=== PATIENT | female | born 1935 | race African-American/Black ===

== ENCOUNTER 2016-11-24 10:17 | Inpatient (IN) | payer MEDICARE ==
[~2016-11-24] VITALS: Ht 152.4 cm; Wt 73.0 kg
[~2016-11-24 10:17] MED LIST: ALLO100T PO; AMLO10TA4 PO; DRON2.5C PO; FURO-69 PO; LABE200T2 PO; LEVO500T59 PO; LEVO75TA5 PO; METR500T PO; MIRT7.5T8 PO; SIMV10TA3 PO; SIMV20TA3 PO
--- NOTE | 2016-11-24 10:45 | PHYS DOC ---
Past Medical History Past Medical History: CVA, Hypertension, Stroke Past Surgical History: Hysterectomy Alcohol Use: None Drug Use: None Adult General Chief Complaint Chief Complaint: SHORTNESS OF BREATH HPI HPI Patient is a 81 year old female who presents with complaint shortness of breath. Patient states that she initially noticed shortness of breath 2 weeks ago, however the past 2 days she has had severe worsening symptoms. Patient admitted to the hospital approximately 2 weeks ago for treatment of urinary tract infection. Patient states that she started getting worsening symptoms shortly after discharge. Patient has history congestive heart failure. Patient denies any associated fever. Patient states that she has not been able to lay flat due to shortness of breath. Patient also states that she has had severely decreased ambulation due to her shortness of breath symptoms. Patient normally walks with the aid of a walker, however she has not been able to use this over the past 2 days because of her symptoms. Patient has not taken any medications to help with her symptoms at this time. Patient follows a Dr. Clarke for primary care. Review of Systems Review of Systems Constitutional: Denies fever or chills [] Eyes: Denies change in visual acuity, redness, or eye pain [] HENT: Denies nasal congestion or sore throat [] Respiratory: Shortness of breath, dyspnea on exertion[] Cardiovascular: Denies chest pain or edema[] GI: Denies abdominal pain, nausea, vomiting, bloody stools or diarrhea [] : Denies dysuria or hematuria [] Musculoskeletal: Denies back pain or joint pain [] Integument: Denies rash or skin lesions [] Neurologic: Denies headache, focal weakness or sensory changes [] Allergies Allergies Allergies Coded Allergies Type Severity Reaction Last Updated Verified No Known Drug Allergies 09/22/14 No Physical Exam Physical Exam Constitutional: Alert, afebrile, appears in minimal discomfort while at rest. [] HENT: Normocephalic, atraumatic, bilateral external ears normal, oropharynx moist, no oral exudates, nose normal. [] Eyes: PERRLA, EOMI, conjunctiva normal, no discharge. [] Neck: Normal range of motion, no tenderness, supple, no stridor. [] Cardiovascular:Heart rate regular rhythm, no murmur [] Lungs & Thorax: Mildly her strict air movement bilaterally, faint rales in the bilateral lung bases, no wheezes[] Abdomen: Bowel sounds normal, soft, no tenderness, no masses, no pulsatile masses. [] Skin: Warm, dry, no erythema, no rash. [] Back: No tenderness, no CVA tenderness. [] Extremities: No tenderness, no cyanosis, no clubbing, ROM intact, no edema. [] Neurologic: Alert and oriented X 3, normal motor function, normal sensory function, no focal deficits noted. [] Current Patient Data Vital Signs Vital Signs Date Time Temp Pulse Resp B/P (MAP) Pulse Ox O2 Delivery O2 Flow Rate FiO2 11/24/16 12:18 79 165/84 (111) 97 Room Air 11/24/16 10:17 98.3 20 98.3 Lab Values Laboratory Tests Test 11/24/16 10:50 11/24/16 12:00 White Blood Count 9.4 x10^3/uL (4.0-11.0) Red Blood Count 4.79 x10^6/uL (3.50-5.40) Hemoglobin 10.6 g/dL (12.0-15.5) L Hematocrit 33.9 % (36.0-47.0) L Mean Corpuscular Volume 71 fL (79-100) L Mean Corpuscular Hemoglobin 22 pg (25-35) L Mean Corpuscular Hemoglobin Concent 31 g/dL (31-37) Red Cell Distribution Width 16.5 % (11.5-14.5) H Platelet Count 226 x10^3/uL (140-400) Neutrophils (%) (Auto) 67 % (31-73) Lymphocytes (%) (Auto) 24 % (24-48) Monocytes (%) (Auto) 6 % (0-9) Eosinophils (%) (Auto) 2 % (0-3) Basophils (%) (Auto) 1 % (0-3) Neutrophils # (Auto) 6.3 x10^3uL (1.8-7.7) Lymphocytes # (Auto) 2.3 x10^3/uL (1.0-4.8) Monocytes # (Auto) 0.6 x10^3/uL (0.0-1.1) Eosinophils # (Auto) 0.2 x10^3/uL (0.0-0.7) Basophils # (Auto) 0.1 x10^3/uL (0.0-0.2) Platelet Estimate Adequate (ADEQUATE) Hypochromasia Slight Anisocytosis Slight Microcytosis Mod Sodium Level 138 mmol/L (136-145) Potassium Level 5.2 mmol/L (3.5-5.1) H Chloride Level 104 mmol/L (98-107) Carbon Dioxide Level 21 mmol/L (21-32) Anion Gap 13 (6-14) Blood Urea Nitrogen 31 mg/dL (7-20) H Creatinine 1.6 mg/dL (0.6-1.0) H Estimated GFR (Cockcroft-Gault) 37.6 BUN/Creatinine Ratio 19 (6-20) Glucose Level 104 mg/dL (70-99) H Calcium Level 9.0 mg/dL (8.5-10.1) Total Bilirubin 0.6 mg/dL (0.2-1.0) Aspartate Amino Transferase (AST) 11 U/L (15-37) L Alanine Aminotransferase (ALT) 13 U/L (14-59) L Alkaline Phosphatase 84 U/L (46-116) Creatine Kinase 108 U/L (26-192) Creatine Kinase MB (Mass) 1.0 ng/mL (0.0-3.6) Creatine Kinase MB Relative Index 0.9 % (0-4) Troponin I Quantitative < 0.017 ng/mL (0.000-0.055) WD-Mfx-N-Type Natriuretic Peptide 325 pg/mL (0-449) Total Protein 7.7 g/dL (6.4-8.2) Albumin 4.0 g/dL (3.4-5.0) Albumin/Globulin Ratio 1.1 (1.0-1.7) Urine Collection Type Unknown Urine Color Yellow Urine Clarity Clear Urine pH 5.5 Urine Specific [place] 1.015 Urine Protein Negative mg/dL (NEG-TRACE) Urine Glucose (UA) Negative mg/dL (NEG) Urine Ketones (Stick) Negative mg/dL (NEG) Urine Blood Negative (NEG) Urine Nitrite Positive (NEG) Urine Bilirubin Negative (NEG) Urine Urobilinogen Dipstick 0.2 mg/dL (0.2 mg/dL) Urine Leukocyte Esterase Small (NEG) Urine RBC 0 /HPF (0-2) Urine WBC 1-4 /HPF (0-4) Urine Bacteria Many /HPF (0-FEW) Laboratory Tests 11/24/16 10:50 Laboratory Tests 11/24/16 10:50 EKG EKG Interpreted by me: Heart rate 89, sinus rhythm, normal intervals, normal axis, T -wave inversions in V2 through V6, no acute ST elevations or depressions[] Radiology/Procedures Radiology/Procedures [facility] [address] [place] [address] IMAGING REPORT Signed PATIENT: PAULA NOLAN ACCOUNT: [id number] : 09/24/1951 LOCATION: ER AGE: 65 SEX: F EXAM STATUS: REG ER ORD. PHYSICIAN: STANLEY SQUIRES MD REASON: cough, chest congestion, fever PROCEDURE: CHEST PA & LATERAL Chest, 2 views, 2016: History: Cough, chest congestion The heart size and pulmonary vascularity are normal. There is mild tortuosity of the thoracic aorta. There or minimal patchy left basilar opacities. The right lung is clear. There is no evidence of pleural fluid. IMPRESSION: Minimal left basilar infiltrate suggesting pneumonia. DICTATED and SIGNED BY: TOM QUAN MD DATE: 11/24/16718 CC: STANLEY SQUIRES MD; GABRIELA SAM MD ~ [] Course & Med Decision Making Course & Med Decision Making Pertinent Labs and Imaging studies reviewed. (See chart for details) Patient's chest x-ray shows signs of edema. Patient's symptoms appear consistent with acute exacerbation of chronic congestive heart failure. Due to severity of symptoms and inability to ambulate normal distances without significant shortness of breath, the patient will require admission to the hospital for further treatment. I spoke with Dr. Strickland who accepted care patient in hospital. Dragon Disclaimer Dragon Disclaimer This electronic medical record was generated, in whole or in part, using a voice recognition dictation system. Departure Departure Impression: Primary Impression: Acute on chronic congestive heart failure Disposition: ADMITTED INPATIENT Condition: STABLE Referrals: RENNY CLARKE DO (PCP) Problem Qualifiers Primary Impression: Acute on chronic congestive heart failure Congestive heart failure type: unspecified congestive heart failure type Qualified Codes: I50.9 - Heart failure, unspecified STANLEY SQUIRES MD Nov 24, 2016 10:45
--- NOTE | 2016-11-24 11:07 | RAD ---
Portable chest, 2016: History: Shortness of breath, cough Comparison is made to a study from 10/30/2016. The heart is mildly enlarged. There is calcific plaquing of the thoracic aorta. The pulmonary vascularity is normal. A calcified granuloma is present in the right base. There is unchanged blunting of left lateral costophrenic angle compatible with scarring versus a tiny amount of pleural fluid. No pulmonary infiltrate is seen. IMPRESSION: 1. Mild cardiomegaly and aortic atherosclerosis. 2. Blunting of the left lateral costophrenic angle compatible with scarring versus a tiny amount pleural fluid. 3. No significant change since 10/30/2016.
[2016-11-24 11:21] LABS: BASO # 0.1 x10^3/uL (0.0-0.2); BASO % 1 % (0-3); EOS % 2 % (0-3); HEMATOCRIT 33.9 % (36.0-47.0); HEMOGLOBIN 10.6 g/dL (12.0-15.5); LYMPH # 2.3 x10^3/uL (1.0-4.8); LYMPH % 24 % (24-48); MEAN CORPUSCULAR HEMOGLOBIN 22 pg (25-35); MEAN CORPUSCULAR HGB CONC 31 g/dL (31-37); MEAN CORPUSCULAR VOLUME 71 fL (79-100); MONO % 6 % (0-9); NEUT % 67 % (31-73); PLATELET COUNT 226 x10^3/uL (140-400); RED BLOOD COUNT 4.79 x10^6/uL (3.50-5.40); RED CELL DISTRIBUTION WIDTH 16.5 % (11.5-14.5); WHITE BLOOD COUNT 9.4 x10^3/uL (4.0-11.0)
[2016-11-24 11:29] LABS: CREATININE 1.6 mg/dL (0.6-1.0); GFR 37.6; POTASSIUM 5.2 mmol/L (3.5-5.1)
[2016-11-24 11:36] LABS: ALBUMIN/GLOBULIN RATIO 1.1 (1.0-1.7); TOTAL BILIRUBIN 0.6 mg/dL (0.2-1.0); TOTAL PROTEIN 7.7 g/dL (6.4-8.2)
[2016-11-24 12:08] LABS: BILIRUBIN,URINE NEGATIVE (NEG); GLUCOSE,URINE NEGATIVE (NEG); NITRITE,URINE POSITIVE (NEG); PH,URINE 5.5; PROTEIN,URINE NEGATIVE (NEG-TRACE); UROBILINOGEN,URINE 0.2 mg/dL (0.2 mg/dL)
[2016-11-24 12:25] LABS: RBC,URINE 0 /HPF (0-2)
[2016-11-24 12:26] LABS: BACTERIA,URINE MANY /HPF (0-FEW)
[2016-11-24] MEDS ORDERED: IBUPROFEN 400 MG TABLET. PO PRN (13:30)
[2016-11-24] MEDS ORDERED: MORPHINE SULFATE 2 MG/ML DISP.SYRIN. IV PRN (13:30)
[2016-11-24] MEDS ORDERED: MAGNESIUM HYDROXIDE 2,400 MG/30 ML ORAL.SUSP. PO PRN (13:30)
[2016-11-24] MEDS ORDERED: PROCHLORPERAZINE 25 MG SUPP.RECT. PR PRN (13:30)
[2016-11-24] MEDS ORDERED: PROCHLORPERAZINE 10 MG/2 ML VIAL. IV PRN (13:30)
[2016-11-24] MEDS ORDERED: ONDANSETRON PF 4 MG/2 ML VIAL. IV PRN (13:30)
[2016-11-24] MEDS ORDERED: ACETAMINOPHEN 325 MG TABLET. PO PRN (13:30)
[2016-11-24] MEDS ORDERED: BISACODYL 10 MG SUPP.RECT. PR PRN (13:30)
--- NOTE | 2016-11-24 13:46 | PDOC1 ---
History and Physical Date of Admission Date of Admission DATE: 11/24/16 TIME: 13:35 Identification/Chief Complaint Chief Complaint weak, SOA, difficulty speech Problems: Source Source: Caregiver, Chart review, Patient History of Present Illness History of Present Illness 81 y.o AA female lives at home with , ambulates with walker, brought by dtr today for the above CC. Claims leg swelling but they look quite fine to me, BNP normal. CXR unchanged form 11/02. Claims SOA, pleuritic Cp, she swallows her phlegm so unable to assess change in sputum character, mentions low grade temp at home, NOne her, CXR fails to show acute infiltrate. Was here oct 30 for the ff: ate of Admission: Oct 30, 2016 Date of Discharge: Nov 01, 2016 Admitting Diagnosis: syncope Final Diagnosis syncope dehydration hypertension obesity weakness and debiliity trichomonas bacteruria Dtr claims pharmacy never got the flagyl rx, went twice. SO just called EMS with the above cc and now back here, Does have urinary frequency, urgency and incontinence, UA shows UTI Also notes Rt hand ulnar deviation, difficulty using igor R hand and is Rt handed Also notes difficulty in speech which is new, denies facial asymmetry, difficulty swallowing or focal weakness, Hx of multiple strokes in the past per dtr Requests dr Pond for he mother's care this time, Past Medical History Cardiovascular: CHF, HTN, Hyperlipidemia CENTRAL NERVOUS SYSTEM: CVA GI: No pertinent hx Heme/Onc: No pertinent hx Hepatobiliary: No pertinent hx Psych: No pertinent hx Musculoskeletal: Osteoarthritis Rheumatologic: Gout Infectious disease: No pertinent hx Renal/: Chronic renal insuff, UTI Endocrine: Hypothyroidism Past Surgical History Past Surgical History: Hysterectomy Family History Family History: Stroke Social History Smoke: No ALCOHOL: none Drugs: None Current Problem List Problem List Problems Medical Problems: (1) Acute on chronic congestive heart failure Status: Acute Problems: Current Medications Current Medications Current Medications Ondansetron HCl (Zofran) 4 mg PRN Q6HRS PRN IV NAUSEA/VOMITING; Start 11/24/16 at 13:30; Status UNV Prochlorperazine Edisylate (Compazine) 10 mg PRN Q6HRS PRN IV NAUSEA/VOMITING; Start 11/24/16 at 13:30; Status UNV Prochlorperazine (Compazine) 25 mg PRN Q12HR PRN PA NAUSEA/VOMITING; Start 12/31 at 13:30; Status UNV Morphine Sulfate 1 mg PRN Q2HR PRN IV PAIN; Start 11/24/16 at 13:30; Status UNV Acetaminophen/ Hydrocodone Bitart (Lortab 5/325) 1 tab PRN Q4HRS PRN PO MILD PAIN, 2ND CHOICE; Start 11/24/16 at 13:30; Status UNV Acetaminophen (Tylenol) 650 mg PRN Q6HRS PRN PO Headaches, Temp > 101.5F; Start 11/24/16 at 13:30; Status UNV Ibuprofen (Motrin) 400 mg PRN Q6HRS PRN PO MILD PAIN; Start 11/24/16 at 13:30; Status UNV Docusate Sodium (Colace) 100 mg BID PO ; Start 11/24/16 at 21:00; Status UNV Magnesium Hydroxide (Milk Of Magnesia) 2,400 mg PRN Q12HR PRN PO CONSTIPATION; Start 11/24/16 at 13:30; Status UNV Lactulose 20 gm PRN Q12HR PRN PO CONSTIPATION; Start 11/24/16 at 13:30; Status UNV Bisacodyl (Dulcolax Supp) 10 mg PRN DAILY PRN PA CONSTIPATION; Start 11/24/16 at 13:30; Status UNV Enoxaparin Sodium (Lovenox 40mg Syringe) 40 mg Q24H SQ ; Start 11/24/16 at 13:30 ; Status UNV Ceftriaxone Sodium 1 gm/ Sodium Chloride 50 ml @ 100 mls/hr Q24H IV ; Start 12/31 at 13:30; Status UNV Metronidazole (Flagyl) 500 mg Q8HRS PO ; Start 11/24/16 at 14:00; Status UNV Allopurinol (Zyloprim) 100 mg DAILY PO ; Start 11/25/16 at 09:00; Status UNV Amlodipine Besylate (Norvasc) 10 mg DAILY PO ; Start 11/25/16 at 09:00; Status UNV Furosemide (Lasix) 60 mg DAILY PO ; Start 11/25/16 at 09:00; Status UNV Labetalol HCl (Trandate) 200 mg BID PO ; Start 11/24/16 at 21:00; Status UNV Levothyroxine Sodium (Synthroid) 75 mcg DAILY PO ; Start 11/25/16 at 09:00; Status UNV Mirtazapine (Remeron) 7.5 mg DAILY PO ; Start 11/25/16 at 09:00; Status UNV Simvastatin (Zocor) 20 mg QHS PO ; Start 11/24/16 at 21:00; Status UNV Active Scripts Active Flagyl (Metronidazole) 500 Mg Tablet 500 Mg PO Q8HRS Reported Lasix (Furosemide) 20 Mg Tablet 3 Tab PO DAILY Simvastatin 20 Mg Tablet 1 Tab PO QHS Mirtazapine 7.5 Mg Tablet 7.5 Mg PO DAILY Allopurinol 100 Mg Tablet 1 Tab PO DAILY Levothyroxine Sodium 75 Mcg Tablet 1 Tab PO DAILY Labetalol Hcl 200 Mg Tablet 200 Mg PO BID Norvasc (Amlodipine Besylate) 10 Mg Tablet 10 Mg PO DAILY Allergies Allergies: Coded Allergies: No Known Drug Allergies (Unverified , 09/22/14) ROS Review of System RT hand pain,pleuritic CP, Cough, SOA, Difficulty speech Physical Exam General: Alert, Oriented X3, Cooperative, No acute distress HEENT: Atraumatic, PERRLA Lungs: Normal air movement, Other (dec BS, no wheezes or crackles appreciated) Cardiovascular: S1, S2 Breasts: Normal, Rt breast nml w/o mass, Lt breast nml w/o mass, Nipples normal Abdomen: Normal bowel sounds, Soft, No tenderness, No hepatosplenomegaly, No masses Rectal Exam: not examined, mass PELVIC: Nml ext genitalia Extremities: No clubbing, No cyanosis, No edema, Normal pulses, No tenderness/ swelling Skin: No rashes, No breakdown, No significant lesion Neuro: Normal gait, Normal speech, Strength at 5/5 X4 ext, Normal tone, Sensation intact, Cranial nerves 3-12 NL, Reflexes 2+ Psych/Mental Status: Mental status NL, Mood NL Vitals Vitals Vital Signs Date Time Temp Pulse Resp B/P (MAP) Pulse Ox O2 Delivery O2 Flow Rate FiO2 11/24/16 12:18 79 165/84 (111) 97 Room Air 11/24/16 10:17 98.3 20 98.3 Labs Labs Laboratory Tests Test 11/24/16 10:50 11/24/16 12:00 White Blood Count 9.4 x10^3/uL (4.0-11.0) Red Blood Count 4.79 x10^6/uL (3.50-5.40) Hemoglobin 10.6 g/dL (12.0-15.5) Hematocrit 33.9 % (36.0-47.0) Mean Corpuscular Volume 71 fL (79-100) Mean Corpuscular Hemoglobin 22 pg (25-35) Mean Corpuscular Hemoglobin Concent 31 g/dL (31-37) Red Cell Distribution Width 16.5 % (11.5-14.5) Platelet Count 226 x10^3/uL (140-400) Neutrophils (%) (Auto) 67 % (31-73) Lymphocytes (%) (Auto) 24 % (24-48) Monocytes (%) (Auto) 6 % (0-9) Eosinophils (%) (Auto) 2 % (0-3) Basophils (%) (Auto) 1 % (0-3) Neutrophils # (Auto) 6.3 x10^3uL (1.8-7.7) Lymphocytes # (Auto) 2.3 x10^3/uL (1.0-4.8) Monocytes # (Auto) 0.6 x10^3/uL (0.0-1.1) Eosinophils # (Auto) 0.2 x10^3/uL (0.0-0.7) Basophils # (Auto) 0.1 x10^3/uL (0.0-0.2) Sodium Level 138 mmol/L (136-145) Potassium Level 5.2 mmol/L (3.5-5.1) Chloride Level 104 mmol/L (98-107) Carbon Dioxide Level 21 mmol/L (21-32) Anion Gap 13 (6-14) Blood Urea Nitrogen 31 mg/dL (7-20) Creatinine 1.6 mg/dL (0.6-1.0) Estimated GFR (Cockcroft-Gault) 37.6 BUN/Creatinine Ratio 19 (6-20) Glucose Level 104 mg/dL (70-99) Calcium Level 9.0 mg/dL (8.5-10.1) Total Bilirubin 0.6 mg/dL (0.2-1.0) Aspartate Amino Transf (AST/SGOT) 11 U/L (15-37) Alanine Aminotransferase (ALT/SGPT) 13 U/L (14-59) Alkaline Phosphatase 84 U/L (46-116) Creatine Kinase 108 U/L (26-192) Creatine Kinase MB (Mass) 1.0 ng/mL (0.0-3.6) Creatine Kinase MB Relative Index 0.9 % (0-4) Troponin I Quantitative < 0.017 ng/mL (0.000-0.055) FB-Tzu-Z-Type Natriuretic Peptide 325 pg/mL (0-449) Total Protein 7.7 g/dL (6.4-8.2) Albumin 4.0 g/dL (3.4-5.0) Albumin/Globulin Ratio 1.1 (1.0-1.7) Urine Collection Type Unknown Urine Color Yellow Urine Clarity Clear Urine pH 5.5 Urine Specific [place] 1.015 Urine Protein Negative mg/dL (NEG-TRACE) Urine Glucose (UA) Negative mg/dL (NEG) Urine Ketones (Stick) Negative mg/dL (NEG) Urine Blood Negative (NEG) Urine Nitrite Positive (NEG) Urine Bilirubin Negative (NEG) Urine Urobilinogen Dipstick 0.2 mg/dL (0.2 mg/dL) Urine Leukocyte Esterase Small (NEG) Urine RBC 0 /HPF (0-2) Urine WBC 1-4 /HPF (0-4) Urine Bacteria Many /HPF (0-FEW) Laboratory Tests Test 11/24/16 10:50 11/24/16 12:00 White Blood Count 9.4 x10^3/uL (4.0-11.0) Red Blood Count 4.79 x10^6/uL (3.50-5.40) Hemoglobin 10.6 g/dL (12.0-15.5) Hematocrit 33.9 % (36.0-47.0) Mean Corpuscular Volume 71 fL (79-100) Mean Corpuscular Hemoglobin 22 pg (25-35) Mean Corpuscular Hemoglobin Concent 31 g/dL (31-37) Red Cell Distribution Width 16.5 % (11.5-14.5) Platelet Count 226 x10^3/uL (140-400) Neutrophils (%) (Auto) 67 % (31-73) Lymphocytes (%) (Auto) 24 % (24-48) Monocytes (%) (Auto) 6 % (0-9) Eosinophils (%) (Auto) 2 % (0-3) Basophils (%) (Auto) 1 % (0-3) Neutrophils # (Auto) 6.3 x10^3uL (1.8-7.7) Lymphocytes # (Auto) 2.3 x10^3/uL (1.0-4.8) Monocytes # (Auto) 0.6 x10^3/uL (0.0-1.1) Eosinophils # (Auto) 0.2 x10^3/uL (0.0-0.7) Basophils # (Auto) 0.1 x10^3/uL (0.0-0.2) Sodium Level 138 mmol/L (136-145) Potassium Level 5.2 mmol/L (3.5-5.1) Chloride Level 104 mmol/L (98-107) Carbon Dioxide Level 21 mmol/L (21-32) Anion Gap 13 (6-14) Blood Urea Nitrogen 31 mg/dL (7-20) Creatinine 1.6 mg/dL (0.6-1.0) Estimated GFR (Cockcroft-Gault) 37.6 BUN/Creatinine Ratio 19 (6-20) Glucose Level 104 mg/dL (70-99) Calcium Level 9.0 mg/dL (8.5-10.1) Total Bilirubin 0.6 mg/dL (0.2-1.0) Aspartate Amino Transf (AST/SGOT) 11 U/L (15-37) Alanine Aminotransferase (ALT/SGPT) 13 U/L (14-59) Alkaline Phosphatase 84 U/L (46-116) Creatine Kinase 108 U/L (26-192) Creatine Kinase MB (Mass) 1.0 ng/mL (0.0-3.6) Creatine Kinase MB Relative Index 0.9 % (0-4) Troponin I Quantitative < 0.017 ng/mL (0.000-0.055) PP-Bmy-D-Type Natriuretic Peptide 325 pg/mL (0-449) Total Protein 7.7 g/dL (6.4-8.2) Albumin 4.0 g/dL (3.4-5.0) Albumin/Globulin Ratio 1.1 (1.0-1.7) Urine Collection Type Unknown Urine Color Yellow Urine Clarity Clear Urine pH 5.5 Urine Specific [place] 1.015 Urine Protein Negative mg/dL (NEG-TRACE) Urine Glucose (UA) Negative mg/dL (NEG) Urine Ketones (Stick) Negative mg/dL (NEG) Urine Blood Negative (NEG) Urine Nitrite Positive (NEG) Urine Bilirubin Negative (NEG) Urine Urobilinogen Dipstick 0.2 mg/dL (0.2 mg/dL) Urine Leukocyte Esterase Small (NEG) Urine RBC 0 /HPF (0-2) Urine WBC 1-4 /HPF (0-4) Urine Bacteria Many /HPF (0-FEW) VTE Prophylaxis Ordered VTE Prophylaxis Devices: Yes VTE Pharmacological Prophylaxi: Yes Assessment/Plan Assessment/Plan 1. SOA, pleuritic CP, low grade temps - PNA not seen on CXR secondary to fluid? vs acute bronchitis 2. UTI 3, REcent trichomoniasis 4. Hx CHF, echo 10/31 <Conclusion> Left ventricle systolic function is normal. The Ejection Fraction is 65-70%. There is normal LV segmental wall motion. Trace to mild mitral regurgitation. Trace tricuspid regurgitation. The PA pressure was estimated at 18 mmHg. There is no evidence of significant pericardial effusion. Mentions mPI plans by cards in 6 mos time 5.Difficulty in speech, hx CVA in past r.o acute CVA 6. HTN, on high side 7. Microcytic anemia 8. tayo Creat 1.6, unknown if CKD PLAn: Admit Dr. santiago per dtr request I held off lasix as Legs not swollen, BNP normal, CXR unchagned form 10/31 films Rest per cards Check Brain CT and if neg, MRI heladio r.o acute CVA given speech issues PT/OT Neuro consult ASA if not on home med Check hand xray - likely OA, is ulnarly deviated Supportive care Start IV rocephin for uTI and URI sxs, urine cx ordered at ER Cont flagyl PO she never got for her trichomoniasis Avoid nephrotoxins, monitor the Creat 1.6 and anemia with hgb 10 Dw dtr, lots of med issues to adddress this admit DVT ppx NORMA JARAMILLO MD Nov 24, 2016 13:46
[2016-11-24] MEDS: DOCUSATE SODIUM 100 MG CAPSULE. PO SCH ×2 (14:00→20:28)
[2016-11-24 14:15] VITALS: BP 168/65
[2016-11-24 14:59] LABS: ANISOCYTOSIS SLIGHT; HYPOCHROMIA SLIGHT; MICROCYTOSIS MOD; PLT ESTIMATE ADEQUATE (ADEQUATE)
--- NOTE | 2016-11-24 15:15 | RAD ---
CT of the head without contrast, 11/24/2016: History: Slurred speech Comparison is made to a study from 10/05/2014. The current exam is compromised by moderate patient rotation. There is moderate bilateral cerebral atrophy. A small area of encephalomalacia is again noted in the left parietal lobe compatible with an old infarct. There is a lucency along the lateral aspect of left basal ganglia which is unchanged and is compatible with an old infarct. Basal ganglia calcifications are present. The ventricles are mildly enlarged on a compensatory basis. There is no shift of the midline structures. There is no evidence of acute intracranial hemorrhage or mass effect. IMPRESSION: 1. Chronic findings as described above. 2. No acute intracranial abnormality is detected. PQRS Compliance Statement: One or more of the following individualized dose reduction techniques were utilized for this examination: 1. Automated exposure control 2. Adjustment of the mA and/or kV according to patient size 3. Use of iterative reconstruction technique
--- NOTE | 2016-11-24 15:20 | RAD ---
Right hand, 2 views, 2016: History: Hand pain There has mild patchy bony demineralization. No fracture or dislocation is identified. There are mild degenerative changes at scattered interphalangeal joints, the third MCP joint and at the first CMC joint. There is mild degenerative change at the radiocarpal articulation. IMPRESSION: 1. Demineralization. 2. Scattered degenerative changes. 3. No acute bony abnormality is detected.
[2016-11-24] MEDS: LABETALOL HCL 200 MG TABLET PO SCH ×2 (15:25→20:28)
[2016-11-24] MEDS: LEVOTHYROXINE 75 MCG TABLET PO SCH (15:25)
[2016-11-24] MEDS: metroNIDAZOLE 500 MG TABLET PO SCH ×2 (15:26→20:28)
[2016-11-24] MEDS: FUROSEMIDE 20 MG TABLET PO SCH (15:26)
[2016-11-24] MEDS: ALLOPURINOL 100 MG TABLET. PO SCH (15:26)
[2016-11-24] MEDS: amLODIPine BESYLATE 10 MG TABLET PO SCH (15:26)
[2016-11-24] MEDS: ASPIRIN 325 MG TABLET PO SCH (15:40)
[2016-11-24] MEDS: ENOXAPARIN 40 MG/0.4 ML SYRINGE. SQ SCH (18:34)
--- NOTE | 2016-11-24 18:48 | PDOC2 ---
NEUROLOGY CONSULT Date of Admission Date of Admission Full Report Dictated DATE: 11/24/16 TIME: 18:46 Current Medications Current Medications Current Medications Ondansetron HCl (Zofran) 4 mg PRN Q6HRS PRN IV NAUSEA/VOMITING 1ST CHOICE; Start 11/24/16 at 13:30 Prochlorperazine Edisylate (Compazine) 10 mg PRN Q6HRS PRN IV NAUSEA/VOMITING; Start 11/24/16 at 13:30 Prochlorperazine (Compazine) 25 mg PRN Q12HR PRN PA NAUSEA/VOMITING; Start 12/31 at 13:30 Morphine Sulfate 1 mg PRN Q2HR PRN IV PAIN; Start 11/24/16 at 13:30 Acetaminophen/ Hydrocodone Bitart (Lortab 5/325) 1 tab PRN Q4HRS PRN PO MILD PAIN, 2ND CHOICE; Start 11/24/16 at 13:30 Acetaminophen (Tylenol) 650 mg PRN Q6HRS PRN PO Headaches, Temp > 101.5F; Start 11/24/16 at 13:30 Ibuprofen (Motrin) 400 mg PRN Q6HRS PRN PO MILD PAIN; Start 11/24/16 at 13:30 Docusate Sodium (Colace) 100 mg BID PO ; Start 11/24/16 at 14:00 Magnesium Hydroxide (Milk Of Magnesia) 2,400 mg PRN Q12HR PRN PO CONSTIPATION; Start 11/24/16 at 13:30 Lactulose 20 gm PRN Q12HR PRN PO CONSTIPATION; Start 11/24/16 at 13:30 Bisacodyl (Dulcolax Supp) 10 mg PRN DAILY PRN PA CONSTIPATION; Start 11/24/16 at 13:30 Enoxaparin Sodium (Lovenox 40mg Syringe) 40 mg DAILY16 SQ ; Start 11/24/16 at 16 :00 Ceftriaxone Sodium 1 gm/ Sodium Chloride 50 ml @ 100 mls/hr Q24H IV Last administered on 11/24/16 15:27; Start 11/24/16 at 14:00 Metronidazole (Flagyl) 500 mg Q8HRS PO Last administered on 11/24/16 15:26; Start 11/24/16 at 14:00 Allopurinol (Zyloprim) 100 mg DAILY PO Last administered on 11/24/16 15:26; Start 11/24/16 at 14:00 Amlodipine Besylate (Norvasc) 10 mg DAILY PO Last administered on 11/24/16 15: 26; Start 11/24/16 at 14:00 Furosemide (Lasix) 60 mg DAILY PO Last administered on 11/24/16 15:26; Start 11/24/16 at 14:00 Labetalol HCl (Trandate) 200 mg BID PO Last administered on 11/24/16 15:25; Start 11/24/16 at 14:00 Levothyroxine Sodium (Synthroid) 75 mcg DAILY07 PO Last administered on 15:25; Start 11/24/16 at 14:00 Mirtazapine (Remeron) 7.5 mg QHS PO ; Start 11/24/16 at 21:00 Atorvastatin Calcium (Lipitor) 10 mg QHS PO ; Start 11/24/16 at 21:00 Labetalol HCl (Normodyne) 10 mg PRN Q2HR PRN IVP HYPERTENSION, SEE COMMENTS; Start 11/24/16 at 13:45 Aspirin (Comfort Aspirin) 325 mg DAILYWBKFT PO Last administered on 11/24/16 15: 40; Start 11/24/16 at 13:45 Active Scripts Active Flagyl (Metronidazole) 500 Mg Tablet 500 Mg PO Q8HRS Reported Lasix (Furosemide) 20 Mg Tablet 3 Tab PO DAILY Simvastatin 20 Mg Tablet 1 Tab PO QHS Mirtazapine 7.5 Mg Tablet 7.5 Mg PO DAILY Allopurinol 100 Mg Tablet 1 Tab PO DAILY Levothyroxine Sodium 75 Mcg Tablet 1 Tab PO DAILY Labetalol Hcl 200 Mg Tablet 200 Mg PO BID Norvasc (Amlodipine Besylate) 10 Mg Tablet 10 Mg PO DAILY Allergies Allergies: Coded Allergies: No Known Drug Allergies (Unverified , 09/22/14) Vitals VITALS Vital Signs Date Time Temp Pulse Resp B/P (MAP) Pulse Ox O2 Delivery O2 Flow Rate FiO2 11/24/16 15:26 84 168/65 11/24/16 14:45 Room Air 11/24/16 14:15 98.1 22 97 98.1 Labs Labs Laboratory Tests Test 11/24/16 10:50 11/24/16 12:00 11/24/16 18:10 White Blood Count 9.4 x10^3/uL (4.0-11.0) Red Blood Count 4.79 x10^6/uL (3.50-5.40) Hemoglobin 10.6 g/dL (12.0-15.5) Hematocrit 33.9 % (36.0-47.0) Mean Corpuscular Volume 71 fL (79-100) Mean Corpuscular Hemoglobin 22 pg (25-35) Mean Corpuscular Hemoglobin Concent 31 g/dL (31-37) Red Cell Distribution Width 16.5 % (11.5-14.5) Platelet Count 226 x10^3/uL (140-400) Neutrophils (%) (Auto) 67 % (31-73) Lymphocytes (%) (Auto) 24 % (24-48) Monocytes (%) (Auto) 6 % (0-9) Eosinophils (%) (Auto) 2 % (0-3) Basophils (%) (Auto) 1 % (0-3) Neutrophils # (Auto) 6.3 x10^3uL (1.8-7.7) Lymphocytes # (Auto) 2.3 x10^3/uL (1.0-4.8) Monocytes # (Auto) 0.6 x10^3/uL (0.0-1.1) Eosinophils # (Auto) 0.2 x10^3/uL (0.0-0.7) Basophils # (Auto) 0.1 x10^3/uL (0.0-0.2) Platelet Estimate Adequate (ADEQUATE) Hypochromasia Slight Anisocytosis Slight Microcytosis Mod Sodium Level 138 mmol/L (136-145) Potassium Level 5.2 mmol/L (3.5-5.1) Chloride Level 104 mmol/L (98-107) Carbon Dioxide Level 21 mmol/L (21-32) Anion Gap 13 (6-14) Blood Urea Nitrogen 31 mg/dL (7-20) Creatinine 1.6 mg/dL (0.6-1.0) Estimated GFR (Cockcroft-Gault) 37.6 BUN/Creatinine Ratio 19 (6-20) Glucose Level 104 mg/dL (70-99) Calcium Level 9.0 mg/dL (8.5-10.1) Total Bilirubin 0.6 mg/dL (0.2-1.0) Aspartate Amino Transf (AST/SGOT) 11 U/L (15-37) Alanine Aminotransferase (ALT/SGPT) 13 U/L (14-59) Alkaline Phosphatase 84 U/L (46-116) Creatine Kinase 108 U/L (26-192) Creatine Kinase MB (Mass) 1.0 ng/mL (0.0-3.6) Creatine Kinase MB Relative Index 0.9 % (0-4) Troponin I Quantitative < 0.017 ng/mL (0.000-0.055) RC-[id number]-[id number]-Type Natriuretic Peptide 325 pg/mL (0-449) Total Protein 7.7 g/dL (6.4-8.2) Albumin 4.0 g/dL (3.4-5.0) Albumin/Globulin Ratio 1.1 (1.0-1.7) Urine Collection Type Unknown Urine Color Yellow Urine Clarity Clear Urine pH 5.5 Urine Specific Bix[place] 1.015 Urine Protein Negative mg/dL (NEG-TRACE) Urine Glucose (UA) Negative mg/dL (NEG) Urine Ketones (Stick) Negative mg/dL (NEG) Urine Blood Negative (NEG) Urine Nitrite Positive (NEG) Urine Bilirubin Negative (NEG) Urine Urobilinogen Dipstick 0.2 mg/dL (0.2 mg/dL) Urine Leukocyte Esterase Small (NEG) Urine RBC 0 /HPF (0-2) Urine WBC 1-4 /HPF (0-4) Urine Bacteria Many /HPF (0-FEW) Uric Acid 7.8 mg/dL (2.6-6.0) Laboratory Tests Test 11/24/16 10:50 11/24/16 12:00 11/24/16 18:10 White Blood Count 9.4 x10^3/uL (4.0-11.0) Red Blood Count 4.79 x10^6/uL (3.50-5.40) Hemoglobin 10.6 g/dL (12.0-15.5) Hematocrit 33.9 % (36.0-47.0) Mean Corpuscular Volume 71 fL (79-100) Mean Corpuscular Hemoglobin 22 pg (25-35) Mean Corpuscular Hemoglobin Concent 31 g/dL (31-37) Red Cell Distribution Width 16.5 % (11.5-14.5) Platelet Count 226 x10^3/uL (140-400) Neutrophils (%) (Auto) 67 % (31-73) Lymphocytes (%) (Auto) 24 % (24-48) Monocytes (%) (Auto) 6 % (0-9) Eosinophils (%) (Auto) 2 % (0-3) Basophils (%) (Auto) 1 % (0-3) Neutrophils # (Auto) 6.3 x10^3uL (1.8-7.7) Lymphocytes # (Auto) 2.3 x10^3/uL (1.0-4.8) Monocytes # (Auto) 0.6 x10^3/uL (0.0-1.1) Eosinophils # (Auto) 0.2 x10^3/uL (0.0-0.7) Basophils # (Auto) 0.1 x10^3/uL (0.0-0.2) Platelet Estimate Adequate (ADEQUATE) Hypochromasia Slight Anisocytosis Slight Microcytosis Mod Sodium Level 138 mmol/L (136-145) Potassium Level 5.2 mmol/L (3.5-5.1) Chloride Level 104 mmol/L (98-107) Carbon Dioxide Level 21 mmol/L (21-32) Anion Gap 13 (6-14) Blood Urea Nitrogen 31 mg/dL (7-20) Creatinine 1.6 mg/dL (0.6-1.0) Estimated GFR (Cockcroft-Gault) 37.6 BUN/Creatinine Ratio 19 (6-20) Glucose Level 104 mg/dL (70-99) Calcium Level 9.0 mg/dL (8.5-10.1) Total Bilirubin 0.6 mg/dL (0.2-1.0) Aspartate Amino Transf (AST/SGOT) 11 U/L (15-37) Alanine Aminotransferase (ALT/SGPT) 13 U/L (14-59) Alkaline Phosphatase 84 U/L (46-116) Creatine Kinase 108 U/L (26-192) Creatine Kinase MB (Mass) 1.0 ng/mL (0.0-3.6) Creatine Kinase MB Relative Index 0.9 % (0-4) Troponin I Quantitative < 0.017 ng/mL (0.000-0.055) JJ-Kth-I-Type Natriuretic Peptide 325 pg/mL (0-449) Total Protein 7.7 g/dL (6.4-8.2) Albumin 4.0 g/dL (3.4-5.0) Albumin/Globulin Ratio 1.1 (1.0-1.7) Urine Collection Type Unknown Urine Color Yellow Urine Clarity Clear Urine pH 5.5 Urine Specific Bixby 1.015 Urine Protein Negative mg/dL (NEG-TRACE) Urine Glucose (UA) Negative mg/dL (NEG) Urine Ketones (Stick) Negative mg/dL (NEG) Urine Blood Negative (NEG) Urine Nitrite Positive (NEG) Urine Bilirubin Negative (NEG) Urine Urobilinogen Dipstick 0.2 mg/dL (0.2 mg/dL) Urine Leukocyte Esterase Small (NEG) Urine RBC 0 /HPF (0-2) Urine WBC 1-4 /HPF (0-4) Urine Bacteria Many /HPF (0-FEW) Uric Acid 7.8 mg/dL (2.6-6.0) Assessment/Plan Assessment/Plan Patient is a pleasant 81-year-old woman who is had difficulty with urinary tract infection and shortness of breath. She has evidence of speech disturbance and left hemiparesis. I'm concerned she's had a right hemispheric stroke or possibly a stroke in the posterior fossa. I will arrange for further investigation with MRI brain, carotid Doppler and echocardiogram. She is currently on aspirin and atorvastatin. She is receiving low-dose Lovenox for DVT prevention. She will need speech, physical and occupational therapies. DONATO ROBLES MD Nov 24, 2016 18:48
[2016-11-24 19:16] VITALS: BP 160/62
[2016-11-24] MEDS: MIRTAZAPINE 7.5 MG TABLET. PO SCH (20:28)
[2016-11-24] MEDS: ATORVASTATIN CALCIUM 10 MG TABLET. PO SCH (20:28)
[2016-11-24 22:24] VITALS: BP 121/62
--- NOTE | 2016-11-25 01:59 | CONS ---
DATE OF CONSULTATION: 11/24/2016 REFERRING PHYSICIAN: Dr. Strickland. REASON FOR CONSULTATION: Stroke. HISTORY OF PRESENT ILLNESS: The patient is a very pleasant 81-year-old woman who presented with complaint of generalized weakness and shortness of breath. The shortness of breath began two weeks prior to presentation. Although symptoms worsened two days prior to presentation. She was admitted through the Emergency Room yesterday. She had been admitted a few weeks ago for treatment of urinary tract infection. She started to have more symptoms after discharge. She has been feeling more short of breath and has not been able to lie flat. She does have a prior history of stroke in the left hemisphere but she denies that it provoked any persistent symptoms. She has also noted difficulty with her speech. PAST MEDICAL HISTORY: 1. History of stroke. 2. Hyperlipidemia. 3. Hypertension. 4. History of congestive heart failure. 5. Chronic renal insufficiency. 6. Gout. 7. Osteoarthritis. 8. Hypothyroidism. ALLERGIES: No known allergies to drugs. MEDICATIONS PRIOR TO ADMISSION: Allopurinol 100 mg, amlodipine 10 mg, furosemide 20 mg 3 daily, labetalol 200 mg twice per day, levothyroxine 75 mcg, metronidazole 500 mg three times a day, Mirtazapine 7.5 mg and simvastatin 20 mg. FAMILY HISTORY: Stroke. SOCIAL HISTORY: She lives at home with her . She does not smoke tobacco, drink alcohol or use recreational drugs. She has a daughter invested in her care. REVIEW OF SYSTEMS: She does not complain of any headache. There has been no change of vision. She has had difficulty with speech. She has been able to swallow but its more difficult. She has been very short of breath. There has been no chest or abdominal pain. She has arthritic pain. There has been no fever or rash. She denies any gastrointestinal complaints. She does have some urinary tract infection complaints. She does not complain of swelling, easy bruising or bleeding. She feels generally weak. She does have endocrine issues with hypothyroidism. She does not have any depression. PHYSICAL EXAMINATION: VITAL SIGNS: The blood pressure was 168/65, pulse 84, respirations 22, temperature 98.1 degrees Fahrenheit. Oximetry was 97% on room air. Her weight was 166 pounds with a height 60 inches and a calculated body mass index of 32.4. GENERAL: She was alert, awake and cooperative. Speech was somewhat dysarthric and slightly hesitant. She had a good fund and recent and remote knowledge. Attention and concentration was intact. She was able to cooperate and follow commands. She was eating dinner upon my arrival, did not seem to be choking on the food. She was well-groomed and well-nourished. She was oriented. NEUROLOGIC: Examination of the cranial nerves revealed visual encarnacion were full to confrontation. Extraocular movements were intact. The eyes were conjugate. Pursuit movements were smooth and saccadic eye movements were without dysmetria. Pupils were 3 mm. She had what appeared to be dense cataract, and I was not able to get a look at the fundus. Facial sensation was intact. The muscles of mastication and facial expression were powerful symmetrically. Hearing was intact to finger rub. The palate arches symmetrically. Tongue was midline with full range of motion. Sternocleidomastoid and trapezius were powerful. There did appear to be some delay of initiation of left smile. Muscle bulk was symmetric. She had some drift of the left arm. Tone slightly increased on the left. Power was fairly full in the right upper and lower extremities but on the left, there was weakness with finger abduction, elbow flexion and extension and arm abduction as well as hip and knee flexion. Power was 4+/5. Reflexes were diminished throughout. Toes were not upgoing. Coordination testing with [id number], [id number], fine motor and rapid alternating movements, not as well-performed on the left. Sensory exam was intact to pain, light touch, proprioception, graphesthesia, cold thermal and vibration. There was no extinction to double simultaneous stimulation. Gait was not testable. Auscultation of the carotid arteries did not reveal a bruit. Heart rhythm was regular without a murmur. Peripheral pulses were symmetric. In the upper extremities, very difficult palpation in the feet. There was no edema or cyanosis. REVIEW OF LABORATORY DATA: CBC revealed a normal white blood cell count and platelet count. Hemoglobin was low at 10.6, hematocrit at 33.9. Chemistries revealed normal sodium, potassium was 5.2 and creatinine was elevated to 1.6 and BUN of 31 with a calculated GFR at 37.6. Glucose was elevated at 104. Liver enzymes were not elevated. CPK was not elevated. BNP was 325. Troponin was not elevated. Urinalysis revealed positive nitrite, small leukocyte esterase and 1 to 4 white blood cells. IMAGING: A CT scan of the brain did not reveal an acute process. There was evidence of encephalomalacia in the left parietal region. IMPRESSION: The patient is a 81-year-old woman who appears to have a left hemiparesis and difficulty with speech. I am very suspicious for right hemispheric stroke or perhaps a brainstem stroke. She also may have some congestive heart failure with shortness of breath. She has evidence of urinary tract infection. RECOMMENDATIONS: I will proceed with an MRI brain to better evaluate for stroke. We will obtain a carotid Doppler and echocardiogram. She is already on a statin and aspirin, which will be continuing. His stroke was confirmed, I would switch to Plavix. I appreciate being involved in her care. DONATO ROBLES MD DR: AMILCAR/stephenie JOB#: [id number] / [id number] NORMA Davidson MD
[2016-11-25 02:44] VITALS: BP 124/67
[2016-11-25 05:59] LABS: CALCIUM 8.8 mg/dL (8.5-10.1); CREATININE 1.9 mg/dL (0.6-1.0); GFR 30.9; POTASSIUM 4.7 mmol/L (3.5-5.1)
[2016-11-25] MEDS: metroNIDAZOLE 500 MG TABLET PO SCH ×3 (06:00→19:16)
[2016-11-25] MEDS: LEVOTHYROXINE 75 MCG TABLET PO SCH (06:02)
--- NOTE | 2016-11-25 06:12 | EKG ---
[facility] [address] [place] [id number] Test Date: 2016-11-24 Test Time: 10:19:19 Pat Name: VALERIY COKER Department: Room: [facility], [facility] Gender: F Intelligence Applications: : 1935 Requested By: STANLEY SQUIRES Order Number: [id number] Reading MD: Abbi Pond Measurements Intervals [place] Rate: 89 P: 33 [place]: 198 QRS: 30 QRSD: 64 T: 90 QT: 346 QTc: 422 Interpretive Statements SINUS RHYTHM LOW LIMB LEAD VOLTAGE QRS(T) CONTOUR ABNORMALITY CONSISTENT WITH ANTEROSEPTAL INFARCT AGE UNDETERMINED T ABNORMALITY IN ANTERIOR LEADS HIGH LATERAL LEADS Electronically Signed On 12-05-2016 10:46:01 CDT by Abbi Pond
[2016-11-25 07:00] VITALS: BP 155/57
--- NOTE | 2016-11-25 07:39 | RAD ---
Carotid ultrasound, 11/25/2016: History: Slurred speech Duplex evaluation of the carotid arteries in neck was performed including grayscale, color-flow and spectral Doppler analysis. There are moderate scattered plaques in the right common carotid artery and at the right carotid bifurcation with partial calcification. There is a mild velocity celebration in the right proximal internal carotid artery up to 121 cm/s. The end-diastolic velocity is 22 cm/s. The internal carotid to common carotid artery ratio at this level is 1.3. The Doppler findings suggest narrowing in the 0-50% diameter range. There is minimal smooth atherosclerotic plaquing in the left common carotid artery and at the carotid bifurcation. The peak systolic velocity in the left internal carotid artery is 122 cm/s with an end-diastolic velocity of 23 cm/s. The internal carotid to common carotid artery ratio on the left is 1.5. The Doppler findings suggest narrowing in the 0-50% diameter range. Antegrade flow is present in both vertebral arteries in the neck. IMPRESSION: Moderate atherosclerotic plaquing at the right carotid bifurcation and to a lesser degree on the left, with underlying luminal narrowing in the 0-50% diameter range bilaterally. Note: Stenosis calculations for CTA, MRA and conventional angiography are based upon determination of the distal ICA diameter in accordance with the NASCET methodology. Stenosis calculations for Doppler studies are derived from validated velocity criteria which are known to correlate with NASCET methodology of determining stenosis.
[2016-11-25] MEDS: ASPIRIN 325 MG TABLET PO SCH (08:00)
[2016-11-25] MEDS: FUROSEMIDE 20 MG TABLET PO SCH (09:00)
[2016-11-25] MEDS: DOCUSATE SODIUM 100 MG CAPSULE. PO SCH ×2 (09:00→19:15)
[2016-11-25] MEDS: ALLOPURINOL 100 MG TABLET. PO SCH (09:00)
[2016-11-25] MEDS: LABETALOL HCL 200 MG TABLET PO SCH ×2 (09:00→19:16)
[2016-11-25] MEDS: amLODIPine BESYLATE 10 MG TABLET PO SCH (09:00)
--- NOTE | 2016-11-25 10:45 | PDOC ---
PROGRESS NOTES Chief Complaint Chief Complaint 1. SOA, pleuritic CP, low grade temps - PNA not seen on CXR secondary to fluid? vs acute bronchitis 2. UTI 3, REcent trichomoniasis 4. Hx CHF, echo 10/31 <Conclusion> Left ventricle systolic function is normal. The Ejection Fraction is 65-70%. There is normal LV segmental wall motion. Trace to mild mitral regurgitation. Trace tricuspid regurgitation. The PA pressure was estimated at 18 mmHg. There is no evidence of significant pericardial effusion. Mentions mPI plans by cards in 6 mos time 5.Difficulty in speech, hx CVA in past r.o acute CVA 6. HTN, on high side 7. Microcytic anemia 8. tayo Creat 1.6, unknown if CKD 9. 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%) History of Present Illness History of Present Illness Some choking issues today Neuro has seen, MRI ordered US carotids show 0-50% plaque build up VS ok PLAn: Await MRI brain COnt PT/OT NPO for now HOOKMAN eval COnt ASa and statin NS at 75cc/hr since nPO, gentle only COnt iV rocephin - acute bronchitis (had temps, cough WBc on admit) Cont PO flagyl - trichomonas Dw RN Vitals Vitals Vital Signs Date Time Temp Pulse Resp B/P (MAP) Pulse Ox O2 Delivery O2 Flow Rate FiO2 11/25/16 08:00 Room Air 11/25/16 07:00 98.6 74 16 155/57 (89) 96 98.6 Physical Exam General: Alert, Oriented X3, Cooperative, No acute distress Lungs: Clear Abdomen: Normal bowel sounds, Soft, No tenderness, No hepatosplenomegaly, No masses Extremities: No clubbing, No cyanosis, No edema, Normal pulses, No tenderness/ swelling Skin: No rashes, No breakdown, No significant lesion Labs LABS Laboratory Tests Test 11/24/16 10:50 11/24/16 12:00 11/24/16 18:10 11/25/16 04:15 White Blood Count 9.4 x10^3/uL (4.0-11.0) Red Blood Count 4.79 x10^6/uL (3.50-5.40) Hemoglobin 10.6 g/dL (12.0-15.5) Hematocrit 33.9 % (36.0-47.0) Mean Corpuscular Volume 71 fL (79-100) Mean Corpuscular Hemoglobin 22 pg (25-35) Mean Corpuscular Hemoglobin Concent 31 g/dL (31-37) Red Cell Distribution Width 16.5 % (11.5-14.5) Platelet Count 226 x10^3/uL (140-400) Neutrophils (%) (Auto) 67 % (31-73) Lymphocytes (%) (Auto) 24 % (24-48) Monocytes (%) (Auto) 6 % (0-9) Eosinophils (%) (Auto) 2 % (0-3) Basophils (%) (Auto) 1 % (0-3) Neutrophils # (Auto) 6.3 x10^3uL (1.8-7.7) Lymphocytes # (Auto) 2.3 x10^3/uL (1.0-4.8) Monocytes # (Auto) 0.6 x10^3/uL (0.0-1.1) Eosinophils # (Auto) 0.2 x10^3/uL (0.0-0.7) Basophils # (Auto) 0.1 x10^3/uL (0.0-0.2) Platelet Estimate Adequate (ADEQUATE) Hypochromasia Slight Anisocytosis Slight Microcytosis Mod Sodium Level 138 mmol/L (136-145) 138 mmol/L (136-145) Potassium Level 5.2 mmol/L (3.5-5.1) 4.7 mmol/L (3.5-5.1) Chloride Level 104 mmol/L (98-107) 103 mmol/L (98-107) Carbon Dioxide Level 21 mmol/L (21-32) 23 mmol/L (21-32) Anion Gap 13 (6-14) 12 (6-14) Blood Urea Nitrogen 31 mg/dL (7-20) 32 mg/dL (7-20) Creatinine 1.6 mg/dL (0.6-1.0) 1.9 mg/dL (0.6-1.0) Estimated GFR (Cockcroft-Gault) 37.6 30.9 BUN/Creatinine Ratio 19 (6-20) Glucose Level 104 mg/dL (70-99) 97 mg/dL (70-99) Calcium Level 9.0 mg/dL (8.5-10.1) 8.8 mg/dL (8.5-10.1) Total Bilirubin 0.6 mg/dL (0.2-1.0) Aspartate Amino Transf (AST/SGOT) 11 U/L (15-37) Alanine Aminotransferase (ALT/SGPT) 13 U/L (14-59) Alkaline Phosphatase 84 U/L (46-116) Creatine Kinase 108 U/L (26-192) Creatine Kinase MB (Mass) 1.0 ng/mL (0.0-3.6) Creatine Kinase MB Relative Index 0.9 % (0-4) Troponin I Quantitative < 0.017 ng/mL (0.000-0.055) PS-Ini-F-Type Natriuretic Peptide 325 pg/mL (0-449) Total Protein 7.7 g/dL (6.4-8.2) Albumin 4.0 g/dL (3.4-5.0) Albumin/Globulin Ratio 1.1 (1.0-1.7) Urine Collection Type Unknown Urine Color Yellow Urine Clarity Clear Urine pH 5.5 Urine Specific Mott 1.015 Urine Protein Negative mg/dL (NEG-TRACE) Urine Glucose (UA) Negative mg/dL (NEG) Urine Ketones (Stick) Negative mg/dL (NEG) Urine Blood Negative (NEG) Urine Nitrite Positive (NEG) Urine Bilirubin Negative (NEG) Urine Urobilinogen Dipstick 0.2 mg/dL (0.2 mg/dL) Urine Leukocyte Esterase Small (NEG) Urine RBC 0 /HPF (0-2) Urine WBC 1-4 /HPF (0-4) Urine Bacteria Many /HPF (0-FEW) Erythrocyte Sedimentation Rate 87 (0-25) Uric Acid 7.8 mg/dL (2.6-6.0) Review of Systems Review of Systems coughing spells, weak, slurred Assessment and Plan Assessmemt and Plan Problems Medical Problems: (1) Acute on chronic congestive heart failure Status: Acute Problems: Comment Review of Relevant I have reviewed the following items hallie (where applicable) has been applied. Labs Laboratory Tests Test 11/24/16 10:50 11/24/16 12:00 11/24/16 18:10 11/25/16 04:15 White Blood Count 9.4 x10^3/uL (4.0-11.0) Red Blood Count 4.79 x10^6/uL (3.50-5.40) Hemoglobin 10.6 g/dL (12.0-15.5) Hematocrit 33.9 % (36.0-47.0) Mean Corpuscular Volume 71 fL (79-100) Mean Corpuscular Hemoglobin 22 pg (25-35) Mean Corpuscular Hemoglobin Concent 31 g/dL (31-37) Red Cell Distribution Width 16.5 % (11.5-14.5) Platelet Count 226 x10^3/uL (140-400) Neutrophils (%) (Auto) 67 % (31-73) Lymphocytes (%) (Auto) 24 % (24-48) Monocytes (%) (Auto) 6 % (0-9) Eosinophils (%) (Auto) 2 % (0-3) Basophils (%) (Auto) 1 % (0-3) Neutrophils # (Auto) 6.3 x10^3uL (1.8-7.7) Lymphocytes # (Auto) 2.3 x10^3/uL (1.0-4.8) Monocytes # (Auto) 0.6 x10^3/uL (0.0-1.1) Eosinophils # (Auto) 0.2 x10^3/uL (0.0-0.7) Basophils # (Auto) 0.1 x10^3/uL (0.0-0.2) Platelet Estimate Adequate (ADEQUATE) Hypochromasia Slight Anisocytosis Slight Microcytosis Mod Sodium Level 138 mmol/L (136-145) 138 mmol/L (136-145) Potassium Level 5.2 mmol/L (3.5-5.1) 4.7 mmol/L (3.5-5.1) Chloride Level 104 mmol/L (98-107) 103 mmol/L (98-107) Carbon Dioxide Level 21 mmol/L (21-32) 23 mmol/L (21-32) Anion Gap 13 (6-14) 12 (6-14) Blood Urea Nitrogen 31 mg/dL (7-20) 32 mg/dL (7-20) Creatinine 1.6 mg/dL (0.6-1.0) 1.9 mg/dL (0.6-1.0) Estimated GFR (Cockcroft-Gault) 37.6 30.9 BUN/Creatinine Ratio 19 (6-20) Glucose Level 104 mg/dL (70-99) 97 mg/dL (70-99) Calcium Level 9.0 mg/dL (8.5-10.1) 8.8 mg/dL (8.5-10.1) Total Bilirubin 0.6 mg/dL (0.2-1.0) Aspartate Amino Transf (AST/SGOT) 11 U/L (15-37) Alanine Aminotransferase (ALT/SGPT) 13 U/L (14-59) Alkaline Phosphatase 84 U/L (46-116) Creatine Kinase 108 U/L (26-192) Creatine Kinase MB (Mass) 1.0 ng/mL (0.0-3.6) Creatine Kinase MB Relative Index 0.9 % (0-4) Troponin I Quantitative < 0.017 ng/mL (0.000-0.055) QP-Jmo-E-Type Natriuretic Peptide 325 pg/mL (0-449) Total Protein 7.7 g/dL (6.4-8.2) Albumin 4.0 g/dL (3.4-5.0) Albumin/Globulin Ratio 1.1 (1.0-1.7) Urine Collection Type Unknown Urine Color Yellow Urine Clarity Clear Urine pH 5.5 Urine Specific Mott 1.015 Urine Protein Negative mg/dL (NEG-TRACE) Urine Glucose (UA) Negative mg/dL (NEG) Urine Ketones (Stick) Negative mg/dL (NEG) Urine Blood Negative (NEG) Urine Nitrite Positive (NEG) Urine Bilirubin Negative (NEG) Urine Urobilinogen Dipstick 0.2 mg/dL (0.2 mg/dL) Urine Leukocyte Esterase Small (NEG) Urine RBC 0 /HPF (0-2) Urine WBC 1-4 /HPF (0-4) Urine Bacteria Many /HPF (0-FEW) Erythrocyte Sedimentation Rate 87 (0-25) Uric Acid 7.8 mg/dL (2.6-6.0) Laboratory Tests Test 11/24/16 10:50 11/24/16 12:00 11/24/16 18:10 11/25/16 04:15 White Blood Count 9.4 x10^3/uL (4.0-11.0) Red Blood Count 4.79 x10^6/uL (3.50-5.40) Hemoglobin 10.6 g/dL (12.0-15.5) Hematocrit 33.9 % (36.0-47.0) Mean Corpuscular Volume 71 fL (79-100) Mean Corpuscular Hemoglobin 22 pg (25-35) Mean Corpuscular Hemoglobin Concent 31 g/dL (31-37) Red Cell Distribution Width 16.5 % (11.5-14.5) Platelet Count 226 x10^3/uL (140-400) Neutrophils (%) (Auto) 67 % (31-73) Lymphocytes (%) (Auto) 24 % (24-48) Monocytes (%) (Auto) 6 % (0-9) Eosinophils (%) (Auto) 2 % (0-3) Basophils (%) (Auto) 1 % (0-3) Neutrophils # (Auto) 6.3 x10^3uL (1.8-7.7) Lymphocytes # (Auto) 2.3 x10^3/uL (1.0-4.8) Monocytes # (Auto) 0.6 x10^3/uL (0.0-1.1) Eosinophils # (Auto) 0.2 x10^3/uL (0.0-0.7) Basophils # (Auto) 0.1 x10^3/uL (0.0-0.2) Platelet Estimate Adequate (ADEQUATE) Hypochromasia Slight Anisocytosis Slight Microcytosis Mod Sodium Level 138 mmol/L (136-145) 138 mmol/L (136-145) Potassium Level 5.2 mmol/L (3.5-5.1) 4.7 mmol/L (3.5-5.1) Chloride Level 104 mmol/L (98-107) 103 mmol/L (98-107) Carbon Dioxide Level 21 mmol/L (21-32) 23 mmol/L (21-32) Anion Gap 13 (6-14) 12 (6-14) Blood Urea Nitrogen 31 mg/dL (7-20) 32 mg/dL (7-20) Creatinine 1.6 mg/dL (0.6-1.0) 1.9 mg/dL (0.6-1.0) Estimated GFR (Cockcroft-Gault) 37.6 30.9 BUN/Creatinine Ratio 19 (6-20) Glucose Level 104 mg/dL (70-99) 97 mg/dL (70-99) Calcium Level 9.0 mg/dL (8.5-10.1) 8.8 mg/dL (8.5-10.1) Total Bilirubin 0.6 mg/dL (0.2-1.0) Aspartate Amino Transf (AST/SGOT) 11 U/L (15-37) Alanine Aminotransferase (ALT/SGPT) 13 U/L (14-59) Alkaline Phosphatase 84 U/L (46-116) Creatine Kinase 108 U/L (26-192) Creatine Kinase MB (Mass) 1.0 ng/mL (0.0-3.6) Creatine Kinase MB Relative Index 0.9 % (0-4) Troponin I Quantitative < 0.017 ng/mL (0.000-0.055) OJ-Nij-J-Type Natriuretic Peptide 325 pg/mL (0-449) Total Protein 7.7 g/dL (6.4-8.2) Albumin 4.0 g/dL (3.4-5.0) Albumin/Globulin Ratio 1.1 (1.0-1.7) Urine Collection Type Unknown Urine Color Yellow Urine Clarity Clear Urine pH 5.5 Urine Specific Mott 1.015 Urine Protein Negative mg/dL (NEG-TRACE) Urine Glucose (UA) Negative mg/dL (NEG) Urine Ketones (Stick) Negative mg/dL (NEG) Urine Blood Negative (NEG) Urine Nitrite Positive (NEG) Urine Bilirubin Negative (NEG) Urine Urobilinogen Dipstick 0.2 mg/dL (0.2 mg/dL) Urine Leukocyte Esterase Small (NEG) Urine RBC 0 /HPF (0-2) Urine WBC 1-4 /HPF (0-4) Urine Bacteria Many /HPF (0-FEW) Erythrocyte Sedimentation Rate 87 (0-25) Uric Acid 7.8 mg/dL (2.6-6.0) Medications Current Medications Ondansetron HCl (Zofran) 4 mg PRN Q6HRS PRN IV NAUSEA/VOMITING 1ST CHOICE; Start 11/24/16 at 13:30 Prochlorperazine Edisylate (Compazine) 10 mg PRN Q6HRS PRN IV NAUSEA/VOMITING; Start 11/24/16 at 13:30 Prochlorperazine (Compazine) 25 mg PRN Q12HR PRN [place] NAUSEA/VOMITING; Start 12/31 at 13:30 Morphine Sulfate 1 mg PRN Q2HR PRN IV PAIN; Start 11/24/16 at 13:30 Acetaminophen/ Hydrocodone Bitart (Lortab 5/325) 1 tab PRN Q4HRS PRN PO MILD PAIN, 2ND CHOICE; Start 11/24/16 at 13:30 Acetaminophen (Tylenol) 650 mg PRN Q6HRS PRN PO Headaches, Temp > 101.5F; Start 11/24/16 at 13:30 Ibuprofen (Motrin) 400 mg PRN Q6HRS PRN PO MILD PAIN; Start 11/24/16 at 13:30 Docusate Sodium (Colace) 100 mg BID PO ; Start 11/24/16 at 14:00 Magnesium Hydroxide (Milk Of Magnesia) 2,400 mg PRN Q12HR PRN PO CONSTIPATION; Start 11/24/16 at 13:30 Lactulose 20 gm PRN Q12HR PRN PO CONSTIPATION; Start 11/24/16 at 13:30 Bisacodyl (Dulcolax Supp) 10 mg PRN DAILY PRN [place] CONSTIPATION; Start 11/24/16 at 13:30 Enoxaparin Sodium (Lovenox 40mg Syringe) 40 mg DAILY16 SQ Last administered on 11/24/16 18:34; Start 11/24/16 at 16:00 Ceftriaxone Sodium 1 gm/ Sodium Chloride 50 ml @ 100 mls/hr Q24H IV Last administered on 11/24/16 15:27; Start 11/24/16 at 14:00 Metronidazole (Flagyl) 500 mg Q8HRS PO Last administered on 11/24/16 15:26; Start 11/24/16 at 14:00 Allopurinol (Zyloprim) 100 mg DAILY PO Last administered on 11/24/16 15:26; Start 11/24/16 at 14:00 Amlodipine Besylate (Norvasc) 10 mg DAILY PO Last administered on 11/24/16 15: 26; Start 11/24/16 at 14:00 Furosemide (Lasix) 60 mg DAILY PO Last administered on 11/24/16 15:26; Start 11/24/16 at 14:00 Labetalol HCl (Trandate) 200 mg BID PO Last administered on 11/24/16 15:25; Start 11/24/16 at 14:00 Levothyroxine Sodium (Synthroid) 75 mcg DAILY07 PO Last administered on 15:25; Start 11/24/16 at 14:00 Mirtazapine (Remeron) 7.5 mg QHS PO ; Start 11/24/16 at 21:00 Atorvastatin Calcium (Lipitor) 10 mg QHS PO ; Start 11/24/16 at 21:00 Labetalol HCl (Normodyne) 10 mg PRN Q2HR PRN IVP HYPERTENSION, SEE COMMENTS; Start 11/24/16 at 13:45 Aspirin (Comfort Aspirin) 325 mg DAILYWBKFT PO Last administered on 11/24/16 15: 40; Start 11/24/16 at 13:45 Active Scripts Active Flagyl (Metronidazole) 500 Mg Tablet 500 Mg PO Q8HRS Reported Lasix (Furosemide) 20 Mg Tablet 3 Tab PO DAILY Simvastatin 20 Mg Tablet 1 Tab PO QHS Mirtazapine 7.5 Mg Tablet 7.5 Mg PO DAILY Allopurinol 100 Mg Tablet 1 Tab PO DAILY Levothyroxine Sodium 75 Mcg Tablet 1 Tab PO DAILY Labetalol Hcl 200 Mg Tablet 200 Mg PO BID Norvasc (Amlodipine Besylate) 10 Mg Tablet 10 Mg PO DAILY Vitals/I & O Vital Sign - Last 24 Hours 11/24/16 11/24/16 11/24/16 11/24/16 11:21 12:18 13:21 14:15 Temp 98.1 98.1 Pulse 78 79 80 84 Resp 22 B/P (MAP) 138/83 (101) 165/84 (111) 158/77 (104) 168/65 (99) Pulse Ox 98 97 96 97 O2 Delivery Room Air Room Air Room Air Room Air 11/24/16 11/24/16 11/24/16 11/24/16 14:15 14:45 15:25 15:26 Temp 98.1 98.1 Pulse 84 84 84 Resp 22 B/P (MAP) 168/65 (99) 168/65 168/65 Pulse Ox 97 O2 Delivery Room Air Room Air 11/24/16 11/24/16 11/24/16 11/25/16 19:16 20:02 22:24 02:44 Temp 98.0 98.2 98.1 98.0 98.2 98.1 Pulse 80 77 66 Resp 22 20 20 B/P (MAP) 160/62 (94) 121/62 (81) 124/67 (86) Pulse Ox 96 94 94 O2 Delivery Room Air Room Air Room Air Room Air 11/25/16 11/25/16 07:00 08:00 Temp 98.6 98.6 Pulse 74 Resp 16 B/P (MAP) 155/57 (89) Pulse Ox 96 O2 Delivery Room Air Room Air NORMA JARAMILLO MD Nov 25, 2016 10:45
[2016-11-25 11:43] VITALS: BP 147/64
--- NOTE | 2016-11-25 13:38 | RAD ---
INDICATION: Slurred speech for 2 weeks. TECHNIQUE: Sagittal T1, axial T1, axial T2, axial FLAIR, axial T2 gradient, coronal T2, and diffusion imaging with ADC map was performed. Comparison is MRI brain from October 09, 2010. There is also a CT head from one day earlier. FINDINGS: Right pontine acute infarct measures 20 x 10 mm in size. Very minimal blooming artifact on gradient imaging associated with the infarct could represent small area of hemorrhagic transformation or potentially an adjacent cavernoma. There is prominence of the ventricles and sulci, has a parietal predominance. There is an old left parieto-occipital infarct. There is associated blooming artifact which may be related to old blood product or laminar necrosis. There are old basal ganglia and deep white matter infarcts bilaterally. There are areas of moderate probable small vessel ischemic disease. Intracranial flow voids are preserved. Cervicomedullary junction is unremarkable. Pituitary and suprasellar region are unremarkable. Left sphenoid sinus is nearly completely opacified. There is nonspecific fluid in the optic sheaths. Report was called to the patient's nurse at 1333 hours. IMPRESSION: 1. Acute infarct right roslyn. 2. Old left parieto-occipital infarct. 3. Brain parenchymal volume loss has a parietal lobe predominance. 4. Probable small vessel ischemic disease. Electronically signed by: Luis A Harrell MD (11/25/2016 1:35 PM) [id number]
--- NOTE | 2016-11-25 14:53 | CARD ---
APPROVED REPORT EXAM: Two-dimensional and M-mode echocardiogram with Doppler and color Doppler. Other Information Quality : Average Rhythm : NSR INDICATION CVA/TIA 2D DIMENSIONS RVDd2.2 (2.9-3.5cm)Left Atrium(2D)3.5 (1.6-4.0cm) IVSd1.4 (0.7-1.1cm)Aortic Root(2D)2.9 (2.0-3.7cm) LVDd4.3 (3.9-5.9cm)LVOT Diameter2.1 (1.8-2.4cm) PWd1.4 (0.7-1.1cm)LVDs2.8 (2.5-4.0cm) FS (%) 35.8 %SV55.7 ml LVEF(%)65.6 (>50%) Aortic Valve AoV Peak Miguel.103.9cm/sAoV VTI22.6cm AO Peak GR.4.3mmHgLVOT Peak Miguel.109.9cm/s LVOT VTI 24.27cmAO Mean GR.3mmHg SAMUEL (VMAX)3.56rz9CDR (VTI)3.78cm2 Mitral Valve MV E Loyxaxej20.0cm/sMV DECEL TSWA802ld MV A Hbfzfsuo32.3cm/sMV E Mean Gr.1mmHg MV OEW007esF/A Ratio0.7 MV A Rjxzebgp020wvPHT (PHT)2.21cm2 TDI E/Lateral E'11.3E/Medial E'11.9 Pulmonary Valve PV Peak Przymdja727.6cm/sPV Peak Grad.4mmHg Tricuspid Valve TR P. Vjbqedii960bz/sRAP AWPZNPCY3xiKk TR Peak Gr.37peOkRKGV01gbVc LEFT VENTRICLE The left ventricle is normal size. There is mild concentric left ventricular hypertrophy. Left ventri dhruv systolic function is normal. The Ejection Fraction is 60-65%. There is normal LV segmental wall m otion. Tissue Doppler imaging reveals mild left ventricular diastolic dysfunction. There is no ventri cular septal defect visualized. RIGHT VENTRICLE The right ventricle is normal size. The right ventricular systolic function is normal. ATRIA The left atrium size is normal. The right atrium size is normal. The interatrial septum is intact wit h no evidence for an atrial septal defect or patent foramen ovale as noted on 2-D or Doppler imaging. AORTIC VALVE The aortic valve is not well visualized. Doppler and Color Flow revealed trace aortic regurgitation. There is no significant aortic valvular stenosis. MITRAL VALVE The mitral valve leaflets are calcified. There is no mitral valve stenosis. Doppler and Color Flow re vealed trace mitral regurgitation. TRICUSPID VALVE The tricuspid valve is not well visualized. Doppler and Color Flow revealed trace tricuspid regurgita tion. The PA pressure was estimated at 22 mmHg. There is no tricuspid valve stenosis. PULMONIC VALVE The pulmonic valve is not well visualized. Doppler and Color Flow revealed no pulmonic valvular regur gitation. There is no pulmonic valvular stenosis. GREAT VESSELS The aortic root is normal in size. The ascending aorta is normal in size. Normal pulmonary venous mary w (Doppler). The IVC is normal in size and collapses >50% with inspiration. PERICARDIAL EFFUSION There is no evidence of significant pericardial effusion. Critical Notification Critical Value: No <Conclusion> Left ventricle systolic function is normal. The Ejection Fraction is 60-65%. There is normal LV segmental wall motion. Tissue Doppler imaging reveals mild left ventricular diastolic dysfunction.
[2016-11-25 15:00] VITALS: BP 158/56
[2016-11-25] MEDS: IV NORMAL SALINE 1000ML BAG 1,000 ML IV SCH (15:05)
[2016-11-25] MEDS: ENOXAPARIN 40 MG/0.4 ML SYRINGE. SQ SCH (15:06)
--- NOTE | 2016-11-25 16:17 | PDOC ---
PROGRESS NOTES Assessment Assessment IMPRESSION: Acute 2 x 1 com infarct in right roslyn. Metabolic encephalopathy. SOB UTI HTN Renal failure. Hypothyroidism Old CVA Elevated uric acid. RECOMMENDATIONS/PLAN: Continue ASA 325 mg daily if not taking ASA before. Continue Lipitor HS. Treat medical diseases. OT/PT Past Medical History Cardiovascular: CHF, HTN, Hyperlipidemia CENTRAL NERVOUS SYSTEM: CVA GI: No pertinent hx Heme/Onc: No pertinent hx Hepatobiliary: No pertinent hx Psych: No pertinent hx Musculoskeletal: Osteoarthritis Rheumatologic: Gout Infectious disease: No pertinent hx Renal/: Chronic renal insuff, UTI Endocrine: Hypothyroidism Past Surgical History Hysterectomy Family History Stroke Social History Smoke: No ALCOHOL: none Drugs: None ALLERGY: Reviewed. MEDICATIONS: Refer to MAR REVIEW OF SYSTEMS: Constitutional: No malnutrition, or cachexia. Head: No recent traumatic brain or head injury. Skin: No edema, or rash. Ear: No infection, tinnitus. Eyes: No vision loss, or diplopia. Nose: No bleeding or purulent discharges. Hearing: Hearing decrease. Neck: No injury. Breast: No history of cancer, masses, or discharges. Cardiac: HTN, HLD Pulmonary: No CPOD. GI: No GI Ulcer, GI bleeding Urinary/genital: UTI. Endocrine: Rkznbeesrjxo0gr. Skeletomuscular: Generalized weakness. Neurological: see HP. Psychiatric: Denies drug use/abuse. Otherwise, not [id number] review of systems. PHYSICAL EXAMINATION: General appearance in acute distress. HEENT: Normocephalic and nontraumatic. Eyes, nose, ears, and throat are unremarkable. Hearing decrease. Neck is supple. No lymphadenopathy. No bruits are heard over the carotid artery. No Crepitus. Cardiovascular: S1, S2, regular rate and rhythm. Pulmonary: Clear to auscultation bilaterally. Abdomen: Bowel sounds are positive. Extremities: No rash, lesions, or edema. No restriction of range of motion NEUROLOGICAL EXAMINATION: Awake. Not fully oriented to time, place and person. PERRL. EOMI. CN: no focal findings. Muscle tone: within normal. Muscle strength: 4 DTR: 2 Plantar reflex: Neutral response bilaterally Gait: not examined in bed. Sensory exam: no abnormal findings. F-T-N test not accurate. Objective Objective Vital Signs Date Time Temp Pulse Resp B/P (MAP) Pulse Ox O2 Delivery O2 Flow Rate FiO2 11/25/16 15:00 98.6 70 18 158/56 (90) 99 Room Air 98.6 Vitals Signs Vitals VS - Last 72 Hours, by Label Date Time Temp Pulse Resp B/P (MAP) Pulse Ox O2 Delivery O2 Flow Rate FiO2 11/25/16 15:00 98.6 70 18 158/56 (90) 99 Room Air 98.6 11/25/16 11:43 97.7 71 18 147/64 (91) 97 Room Air 97.7 11/25/16 08:00 Room Air 11/25/16 07:00 98.6 74 16 155/57 (89) 96 Room Air 98.6 11/25/16 02:44 98.1 66 20 124/67 (86) 94 Room Air 98.1 11/24/16 22:24 98.2 77 20 121/62 (81) 94 Room Air 98.2 11/24/16 20:02 Room Air 11/24/16 19:16 98.0 80 22 160/62 (94) 96 Room Air 98.0 11/24/16 15:26 84 168/65 11/24/16 15:25 84 168/65 11/24/16 14:45 Room Air 11/24/16 14:15 98.1 84 22 168/65 (99) 97 Room Air 98.1 11/24/16 14:15 98.1 84 22 168/65 (99) 97 Room Air 98.1 11/24/16 13:21 80 158/77 (104) 96 Room Air 11/24/16 12:18 79 165/84 (111) 97 Room Air 11/24/16 11:21 78 138/83 (101) 98 Room Air 11/24/16 10:17 98.3 88 20 188/83 (118) 99 Room Air 98.3 Laboratory Laboratory Laboratory Tests Test 11/24/16 18:10 11/25/16 04:15 Erythrocyte Sedimentation Rate 87 (0-25) Uric Acid 7.8 mg/dL (2.6-6.0) Sodium Level 138 mmol/L (136-145) Potassium Level 4.7 mmol/L (3.5-5.1) Chloride Level 103 mmol/L (98-107) Carbon Dioxide Level 23 mmol/L (21-32) Anion Gap 12 (6-14) Blood Urea Nitrogen 32 mg/dL (7-20) Creatinine 1.9 mg/dL (0.6-1.0) Estimated GFR (Cockcroft-Gault) 30.9 Glucose Level 97 mg/dL (70-99) Calcium Level 8.8 mg/dL (8.5-10.1) Microbiology 11/24/16 Urine Culture - Preliminary, Resulted 11/24/16 Urine Culture Result 1 ([facility]) - Preliminary, Resulted Medication Medications Current Medications Atorvastatin Calcium (Lipitor) 10 mg QHS PO ; Start 11/24/16 at 21:00 Mirtazapine (Remeron) 7.5 mg QHS PO ; Start 11/24/16 at 21:00 Sodium Chloride 1,000 ml @ 75 mls/hr [id number] IV Last administered on t 15:05; Start 11/25/16 at 11:00 Comment Review of Relevant I have reviewed the following items hallie (where applicable) has been applied. TONE PRESLEY MD Nov 25, 2016 16:17
[2016-11-25] MEDS: ATORVASTATIN CALCIUM 10 MG TABLET. PO SCH (19:15)
[2016-11-25] MEDS: MIRTAZAPINE 7.5 MG TABLET. PO SCH (19:16)
[2016-11-25 19:52] VITALS: BP 155/62
[2016-11-25 23:04] VITALS: BP 166/74
[2016-11-26] MEDS: IV NORMAL SALINE 1000ML BAG 1,000 ML IV SCH (00:20)
[2016-11-26] MEDS: LABETALOL 20 MG/4 ML DISP.SYRIN. IVP PRN ×2 (01:06→23:27)
[2016-11-26 03:11] VITALS: BP 162/79
[2016-11-26] MEDS: metroNIDAZOLE 500 MG TABLET PO SCH ×3 (05:36→20:26)
[2016-11-26] MEDS: LEVOTHYROXINE 75 MCG TABLET PO SCH (05:36)
[2016-11-26] MEDS: ASPIRIN 325 MG TABLET PO SCH (08:00)
[2016-11-26] MEDS ORDERED: REGADENOSON 0.4 MG/5 ML DISP.SYRIN. IV ONE (08:30)
--- NOTE | 2016-11-26 08:35 | CONS ---
DATE OF CONSULTATION: HISTORY OF PRESENT ILLNESS: This is a 81-year-old black female who was brought into the hospital because of significant weakness, shortness of breath with exertion and aphasia. She was here 2 weeks ago when she had a syncopal episode while seated on the toilet. She underwent an echocardiogram that was essentially normal. She was asked to return in 4 weeks to consider an MPI. However, because of these symptoms, she was brought in sooner. She says she has had a stroke several years ago, and it has all been on the left side. She had weakness on the left side but had no aphasia and no dysphagia and was strong on the right side, but for the last day, the family noticed that she was unable to talk and would get very short of breath when trying to talk. She would also drag her right leg. She underwent an MRI today, which showed an acute infarct in the right roslyn. There was an old left parieto-occipital infarct. She has undergone carotid Doppler studies earlier today. There was mild velocity ____ in the right proximal internal carotid artery up to 121 cm/sec. End-diastolic velocity was 22 cm/sec. This would suggest narrowing in the 0%-50% range. This was a similar case on the left carotid artery system. The family was also concerned about her being short of breath over the last 1 month with minimal exertion such as getting up out of bed and walking a short distance. Today, just before being hospitalized, however, they had noticed that she was very short of breath upon trying to talk. She gives history of hypertension. There is no history of diabetes mellitus. There is no history of myocardial infarction. She smoked half a pack of cigarettes a day for many years. She stopped smoking about 4 years ago. She used to take alcohol but stopped that 4 years ago, I believe, when she had her first stroke. PRESENT MEDICATIONS: 1. Allopurinol 100 mg a day. 2. Amlodipine 10 mg a day. 3. Lasix 60 mg a day. 4. Labetalol 200 mg twice a day. 5. Synthroid 75 mcg a day. 6. Mirtazapine 7.5 mg a day. 7. Simvastatin 20 mg at night. She has had some cough and sputum production. She has had no wheezing. She has had some swelling of her feet only but not over her legs. PHYSICAL EXAMINATION: GENERAL: She was in no acute distress. VITAL SIGNS: The heart rate was 70 per minute and regular. The blood pressure was 150/60. She was afebrile. The respiratory rate of 16 per minute. She was saturating well at 94% on room air. HEART: The heart sounds were normal with no murmur or gallop. ABDOMEN: Soft. EXTREMITIES: There was no edema of the legs. There was some fullness over the dorsal aspect of both her feet that her daughter was concerned about, but this does not appear to be due to fluid accumulation. A chest x-ray was normal. An EKG showed inverted T waves over the anterior precordial leads. The troponin was normal. The BNP was not significantly elevated and was 325. The uric acid was 7.8. The BUN was 32, and the creatinine was 1.9. IMPRESSION: 1. Acute left pontine infarct. 2. Previous right frontoparietal infarct. 3. Multiple infarcts on both sides of the brain with no significant carotid disease, and thus we need to rule out a cardiac source of the infarct. 4. Exertional dyspnea for the last several weeks: A. No clinical evidence of congestive heart failure, no reason on recent echo to her congestive heart failure. B. Consider chronic obstructive pulmonary disease/emphysema as a cause of the shortness of breath with exertion. 5. Chronic kidney disease, stage 3. 6. History of hyperuricemia. 7. Dyslipidemia. PLAN: 1. Because of the multiple areas of infarcts that she has had in the brain with no significant carotid vascular disease, I would like to get a LEONILA to rule out a cardiac source of infarct. Continue to monitor her for atrial arrhythmias. The LEONILA can be done on the morning of 11/27/2016. 2. Obtain a CT of the chest without IV contrast to look for radiological signs of emphysema. 3. Consider inhaled bronchodilators to see if that would help with her shortness of breath. 4. Consider angina equivalent specifically with abnormal EKG. She would need an MPI, and this can be accomplished tomorrow. 5. I would discontinue the Lasix that she has been given at the dosage of 60 mg a day. There is no clinical evidence of CHF. The BNP is relatively low. There was also no evidence on the echocardiogram done 2 weeks ago to suggest that she may have CHF. Discontinuing the Lasix might improve the BUN and creatinine. I have discussed all these aspects of her care with the daughter. Thank you very much for asking me to see her. MELISSA HERNÁNDEZ MD DR: BRITTANY/stephenie JOB#: [id number] / [id number]
[2016-11-26] MEDS: hydrALAZINE 20 MG/ML VIAL. IVP PRN (08:49)
[2016-11-26] MEDS: ALLOPURINOL 100 MG TABLET. PO SCH (09:00)
[2016-11-26] MEDS: amLODIPine BESYLATE 10 MG TABLET PO SCH (09:00)
[2016-11-26] MEDS: LABETALOL HCL 200 MG TABLET PO SCH ×2 (09:00→20:26)
[2016-11-26] MEDS: DOCUSATE SODIUM 100 MG CAPSULE. PO SCH ×2 (09:00→20:26)
[2016-11-26 09:02] VITALS: BP 182/69
[2016-11-26 11:27] VITALS: BP 151/61
--- NOTE | 2016-11-26 11:44 | RAD ---
Indication emphysema area and shortness of breath. Cough. Axial noncontrast imaging through the chest was performed. No prior CT imaging of the chest is available. Note is made of a plain film examination of the chest 2 days ago. Imaging through the upper abdomen is unremarkable. There is some coronary artery calcification. There is no significant hilar or mediastinal adenopathy. No acute parenchymal infiltrate is seen. A dominant soft tissue mass is not seen. Significant interstitial fibrotic changes or emphysematous changes are not seen. There is slight prominence of the main pulmonary artery. Clinical correlation as to the possibility of pulmonary hypertension advised. IMPRESSION: No acute finding seen in the chest. Mildly prominent main pulmonary artery. PQRS Compliance Statement: One or more of the following individualized dose reduction techniques were utilized for this examination: 1. Automated exposure control 2. Adjustment of the mA and/or kV according to patient size 3. Use of iterative reconstruction technique
--- NOTE | 2016-11-26 12:47 | PDOC ---
PROGRESS NOTES Chief Complaint Chief Complaint 1. 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 UTI,acute bronchitis? 3, REcent trichomoniasis 4. Hx CHF, echo 10/31 <Conclusion> Left ventricle systolic function is normal. The Ejection Fraction is 65-70%. There is normal LV segmental wall motion. Trace to mild mitral regurgitation. Trace tricuspid regurgitation. The PA pressure was estimated at 18 mmHg. There is no evidence of significant pericardial effusion. Mentions mPI plans by cards in 6 mos time 6. HTN, uncontrolled 7. Microcytic anemia 8. tayo Creat 1.6, unknown if CKD 9. 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 Mildly prominent main pulmonary artery. 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 PT.OT Sw rehab screen - dw Carmen - aware COntrol BP Await MPI IVF while NPO Dw RN Sven Vitals Vitals Vital Signs Date Time Temp Pulse Resp B/P (MAP) Pulse Ox O2 Delivery O2 Flow Rate FiO2 11/26/16 11:27 97.9 87 17 151/61 (91) Room Air 97.9 11/26/16 09:02 98 Physical Exam General: Alert, Oriented X3, Cooperative, No acute distress Lungs: Clear Abdomen: Normal bowel sounds, Soft, No tenderness, No hepatosplenomegaly, No masses Extremities: No clubbing, No cyanosis, No edema, Normal pulses, No tenderness/ swelling Skin: No rashes, No breakdown, No significant lesion Review of Systems Review of Systems nausea, weak Assessment and Plan Assessmemt and Plan Problems Medical Problems: (1) Acute on chronic congestive heart failure Status: Acute Problems: Comment Review of Relevant I have reviewed the following items hallie (where applicable) has been applied. Labs Laboratory Tests Test 11/24/16 18:10 11/25/16 04:15 Erythrocyte Sedimentation Rate 87 (0-25) Uric Acid 7.8 mg/dL (2.6-6.0) Sodium Level 138 mmol/L (136-145) Potassium Level 4.7 mmol/L (3.5-5.1) Chloride Level 103 mmol/L (98-107) Carbon Dioxide Level 23 mmol/L (21-32) Anion Gap 12 (6-14) Blood Urea Nitrogen 32 mg/dL (7-20) Creatinine 1.9 mg/dL (0.6-1.0) Estimated GFR (Cockcroft-Gault) 30.9 Glucose Level 97 mg/dL (70-99) Calcium Level 8.8 mg/dL (8.5-10.1) Microbiology 11/24/16 Urine Culture - Final, Complete 11/24/16 Urine Culture Result 1 (MARION) - Final, Complete 11/24/16 Antimicrobic Susceptibility - Final, Complete Medications Current Medications Ondansetron HCl (Zofran) 4 mg PRN Q6HRS PRN IV NAUSEA/VOMITING 1ST CHOICE; Start 11/24/16 at 13:30 Prochlorperazine Edisylate (Compazine) 10 mg PRN Q6HRS PRN IV NAUSEA/VOMITING; Start 11/24/16 at 13:30 Prochlorperazine (Compazine) 25 mg PRN Q12HR PRN AK NAUSEA/VOMITING; Start 12/31 at 13:30 Morphine Sulfate 1 mg PRN Q2HR PRN IV PAIN; Start 11/24/16 at 13:30 Acetaminophen/ Hydrocodone Bitart (Lortab 5/325) 1 tab PRN Q4HRS PRN PO MILD PAIN, 2ND CHOICE; Start 11/24/16 at 13:30 Acetaminophen (Tylenol) 650 mg PRN Q6HRS PRN PO Headaches, Temp > 101.5F; Start 11/24/16 at 13:30 Ibuprofen (Motrin) 400 mg PRN Q6HRS PRN PO MILD PAIN; Start 11/24/16 at 13:30; Status Cancel Docusate Sodium (Colace) 100 mg BID PO ; Start 11/24/16 at 14:00 Magnesium Hydroxide (Milk Of Magnesia) 2,400 mg PRN Q12HR PRN PO CONSTIPATION; Start 11/24/16 at 13:30 Lactulose 20 gm PRN Q12HR PRN PO CONSTIPATION; Start 11/24/16 at 13:30 Bisacodyl (Dulcolax Supp) 10 mg PRN DAILY PRN AK CONSTIPATION; Start 11/24/16 at 13:30 Enoxaparin Sodium (Lovenox 40mg Syringe) 40 mg DAILY16 SQ Last administered on 11/25/16 15:06; Start 11/24/16 at 16:00 Ceftriaxone Sodium 1 gm/ Sodium Chloride 50 ml @ 100 mls/hr Q24H IV Last administered on 11/25/16 15:05; Start 11/24/16 at 14:00 Metronidazole (Flagyl) 500 mg Q8HRS PO Last administered on 11/24/16 15:26; Start 11/24/16 at 14:00 Allopurinol (Zyloprim) 100 mg DAILY PO Last administered on 11/24/16 15:26; Start 11/24/16 at 14:00 Amlodipine Besylate (Norvasc) 10 mg DAILY PO Last administered on 11/24/16 15: 26; Start 11/24/16 at 14:00 Furosemide (Lasix) 60 mg DAILY PO Last administered on 11/24/16 15:26; Start 11/24/16 at 14:00; Stop 11/25/16 at 21:04; Status DC Labetalol HCl (Trandate) 200 mg BID PO Last administered on 11/24/16 15:25; Start 11/24/16 at 14:00 Levothyroxine Sodium (Synthroid) 75 mcg DAILY07 PO Last administered on 15:25; Start 11/24/16 at 14:00 Mirtazapine (Remeron) 7.5 mg QHS PO ; Start 11/24/16 at 21:00 Atorvastatin Calcium (Lipitor) 10 mg QHS PO ; Start 11/24/16 at 21:00 Labetalol HCl (Normodyne) 10 mg PRN Q2HR PRN IVP HYPERTENSION, SEE COMMENTS Last administered on 11/26/16 01:06; Start 11/24/16 at 13:45 Aspirin (Comfort Aspirin) 325 mg DAILYWBKFT PO Last administered on 11/24/16 15: 40; Start 11/24/16 at 13:45 Sodium Chloride 1,000 ml @ 75 mls/hr [id number] IV Last administered on 00:20; Start 11/25/16 at 11:00 Regadenoson (Lexiscan) 0.4 mg 1X ONCE IV Last administered on 11/26/16 10:38 ; Start 11/26/16 at 08:30; Stop 11/26/16 at 08:31; Status DC Hydralazine HCl (Apresoline) 10 mg PRN Q4HRS PRN IVP ELEVATED BP, SEE COMMENTS Last administered on 11/26/16 08:49; Start 11/26/16 at 08:45 Active Scripts Active Flagyl (Metronidazole) 500 Mg Tablet 500 Mg PO Q8HRS Reported Lasix (Furosemide) 20 Mg Tablet 3 Tab PO DAILY Simvastatin 20 Mg Tablet 1 Tab PO QHS Mirtazapine 7.5 Mg Tablet 7.5 Mg PO DAILY Allopurinol 100 Mg Tablet 1 Tab PO DAILY Levothyroxine Sodium 75 Mcg Tablet 1 Tab PO DAILY Labetalol Hcl 200 Mg Tablet 200 Mg PO BID Norvasc (Amlodipine Besylate) 10 Mg Tablet 10 Mg PO DAILY Vitals/I & O Vital Sign - Last 24 Hours 11/25/16 11/25/16 11/25/16 11/25/16 15:00 19:48 19:52 23:04 Temp 98.6 97.8 97.5 98.6 97.8 97.5 Pulse 70 79 81 Resp 18 16 18 B/P (MAP) 158/56 (90) 155/62 (93) 166/74 (104) Pulse Ox 99 94 92 O2 Delivery Room Air Room Air Room Air Room Air 11/26/16 11/26/16 11/26/16 11/26/16 01:06 03:11 07:30 08:00 Temp 97.8 97.8 Pulse 81 78 Resp 18 B/P (MAP) 166/74 162/79 (106) Pulse Ox 95 O2 Delivery Room Air Room Air Room Air 11/26/16 11/26/16 11/26/16 11/26/16 08:49 09:02 09:21 11:27 Temp 98.1 97.9 98.1 97.9 Pulse 78 72 87 Resp 18 17 B/P (MAP) 182/69 182/69 (106) 151/61 (91) Pulse Ox 98 O2 Delivery Room Air Room Air Room Air NORMA JARAMILLO MD Nov 26, 2016 12:47
[2016-11-26 14:07] VITALS: BP 163/69
[2016-11-26] MEDS: ENOXAPARIN 30 MG/0.3 ML SYRINGE. SQ SCH (16:00)
--- NOTE | 2016-11-26 16:22 | PDOC ---
PROGRESS NOTES Assessment Assessment Acute 2 x 1 com infarct in right roslyn. Metabolic encephalopathy. SOB UTI HTN Renal failure. Hypothyroidism Old CVA Elevated uric acid. RECOMMENDATIONS/PLAN: Continue ASA 325 mg daily if not taking ASA before. Continue Lipitor HS. Treat medical diseases. OT/PT Past Medical History Cardiovascular: CHF, HTN, Hyperlipidemia CENTRAL NERVOUS SYSTEM: CVA GI: No pertinent hx Heme/Onc: No pertinent hx Hepatobiliary: No pertinent hx Psych: No pertinent hx Musculoskeletal: Osteoarthritis Rheumatologic: Gout Infectious disease: No pertinent hx Renal/: Chronic renal insuff, UTI Endocrine: Hypothyroidism Past Surgical History Hysterectomy Family History Stroke Social History Smoke: No ALCOHOL: none Drugs: None ALLERGY: Reviewed. MEDICATIONS: Refer to MAR REVIEW OF SYSTEMS: Constitutional: No malnutrition, or cachexia. Head: No recent traumatic brain or head injury. Skin: No edema, or rash. Ear: No infection, tinnitus. Eyes: No vision loss, or diplopia. Nose: No bleeding or purulent discharges. Hearing: Hearing decrease. Neck: No injury. Breast: No history of cancer, masses, or discharges. Cardiac: HTN, HLD Pulmonary: No CPOD. GI: No GI Ulcer, GI bleeding Urinary/genital: UTI. Endocrine: [id number]. Skeletomuscular: Generalized weakness. Neurological: see HP. Psychiatric: Denies drug use/abuse. Otherwise, not [id number] review of systems. PHYSICAL EXAMINATION: General appearance in subacute distress. HEENT: Normocephalic and nontraumatic. Eyes, nose, ears, and throat are unremarkable. Hearing decrease. Neck is supple. No lymphadenopathy. No bruits are heard over the carotid artery. No Crepitus. Cardiovascular: S1, S2, regular rate and rhythm. Pulmonary: Clear to auscultation bilaterally. Abdomen: Bowel sounds are positive. Extremities: No rash, lesions, or edema. No restriction of range of motion NEUROLOGICAL EXAMINATION: Awake. Not fully oriented to time, place and person. PERRL. EOMI. CN: no focal findings. Muscle tone: within normal. Muscle strength: 4 DTR: 2 Plantar reflex: Neutral response bilaterally Gait: not examined in bed. Sensory exam: no abnormal findings. F-T-N test not accurate Objective Objective Vital Signs Date Time Temp Pulse Resp B/P (MAP) Pulse Ox O2 Delivery O2 Flow Rate FiO2 11/26/16 14:07 97.8 81 18 163/69 (100) 96 Room Air 97.8 Intake and Output 11/27/16 07:00 # Voids 1 Vitals Signs Vitals VS - Last 72 Hours, by Label Date Time Temp Pulse Resp B/P (MAP) Pulse Ox O2 Delivery O2 Flow Rate FiO2 11/26/16 14:07 97.8 81 18 163/69 (100) 96 Room Air 97.8 11/26/16 13:04 Room Air 11/26/16 11:27 97.9 87 17 151/61 (91) Room Air 97.9 11/26/16 09:02 98.1 72 18 182/69 (106) 98 Room Air 98.1 11/26/16 08:49 78 182/69 11/26/16 08:00 Room Air 11/26/16 07:30 Room Air 11/26/16 03:11 97.8 78 18 162/79 (106) 95 Room Air 97.8 11/26/16 01:06 81 166/74 11/25/16 23:04 97.5 81 18 166/74 (104) 92 Room Air 97.5 11/25/16 19:52 97.8 79 16 155/62 (93) 94 Room Air 97.8 11/25/16 19:48 Room Air 11/25/16 15:00 98.6 70 18 158/56 (90) 99 Room Air 98.6 11/25/16 11:43 97.7 71 18 147/64 (91) 97 Room Air 97.7 11/25/16 08:00 Room Air 11/25/16 07:00 98.6 74 16 155/57 (89) 96 Room Air 98.6 Laboratory Laboratory Microbiology 11/24/16 Urine Culture - Final, Complete 11/24/16 Urine Culture Result 1 (MARION) - Final, Complete 11/24/16 Antimicrobic Susceptibility - Final, Complete Medication Medications Current Medications Enoxaparin Sodium (Lovenox 30mg Syringe) 30 mg DAILY16 SQ Last administered on 11/26/16 16:00; Start 11/26/16 at 16:00 Hydralazine HCl (Apresoline) 10 mg PRN Q4HRS PRN IVP ELEVATED BP, SEE COMMENTS Last administered on 11/26/16 08:49; Start 11/26/16 at 08:45 Regadenoson (Lexiscan) 0.4 mg 1X ONCE IV Last administered on 11/26/16t 10:38 ; Start 11/26/16 at 08:30; Stop 11/26/16 at 08:31; Status DC Comment Review of Relevant I have reviewed the following items hallie (where applicable) has been applied. TONE PRESLEY MD Nov 26, 2016 16:22
[2016-11-26 19:00] VITALS: BP 169/74
--- NOTE | 2016-11-26 20:03 | RAD ---
APPROVED REPORT Test Type: Pharmacological Stress Nurse/Tech: Beulah Vazquez R.N. Test Indications: Angina equivalent, abnormal EKG, syncope, SOA Cardiac History: SEE EMR Medications: SEE EMR Medical History: SEE EMR Resting ECG: SR 1st degree AV block Resting Heart Rate: 96 bpm Resting Blood Pressure: 170/73mmHg Pretest Chest Pain: None Nurse/Tech Notes S1S2, lungs CTA, diminished in the bases, denied chest pain or SOA. No wheezes or crackles noted. Consent: The procedure was explained to the patient in lay terms. Informed consent was witnessed. Edy eout was entered into [email or web address]. History and Stress Test performed by Beulah Vazquez R.N. Pharm. Details Pharmacologic stress testing was performed using 0.4mg per 5ml of regadenoson given intravenously ove r 7-10 seconds. Stress Symptoms Nausea, SOA. POST EXERCISE Reason for Termination: Infusion complete Max HR: 109 bpm Max Blood Pressure: 137/53mmHg Blood Pressure response to exercise: Normal blood pressure response during stress. Heart Rate response to exercise: Normal Chest Pain: No. Arrhythmia: No. ST Change: No. INTERPRETATION Stress EKG Conclusion: No acute changes were noted. Imaging Protocol IMAGE PROTOCOL: Rest Tc-99m/stress Tc-99m 1 day Rest: Stress: Viability: Radiopharm.Tc99m [id number] Sestamibi Dose11.1mCi 32mCi Duration 15min. 12min. Img Date 11/26/2016 11/26/2016 Inj-Img [id number]. 60min. Rest Admin Site:IV - Left ForearmAdministrator:Montserrat Bunn RT (R)(N) Stress Admin Site: IV - Left ForearmAdministrator: WESLEY Gomez STRESS DATA End Diast. Vol.33.0mlAv. Heart Rate80.0bpm End Syst. Vol.3.0mlCO Index BSA0.0L/min Myocardial Mass70.0gEject. Odilqwwq04.0% Stress Rates Pk. Fill Rate2.87EDV/secLVtime Pk. Fill 93.04msec Pk. Empty Rate4.67ESV/secLVtime Pk. Broii795.14msec 03/19 Pk. Fill2.02EDV/sec Stress Scores Regional WT0.00Summed WT0.00 Regional WM0.00Summed WM2.00 LV Perf. Quant 17 Seg. SSS4.00 17 Seg. SRS0.00 17 Seg. SDS4.00 Stress Defect Extent (% LAD)14.40Rest Defect Extent (% LAD)0.00Rev. Defect Extent (% LAD)14.40 Stress Defect Extent (% LCX) 0.00Rest Defect Extent (% LCX)0.00Rev. Defect Extent (% LCX)0.00 Stress Defect Extent (% RCA)0.00Rest Defect Extent (% RCA)0.00Rev. Defect Extent (% RCA)0.00 Stress Defect Extent (% MARYURI)7.60Rest Defect Extent (% MARYURI)0.00Rev. Defect Extent (% MARYURI)7.60 Conclusion 1. Baseline electrocardiogram showed inverted T waves over the precordial leads. 2. No ST segment depression suggestive of myocardial ischemia with pharmacological stress. 3. No perfusion defects to suggest myocardial ischemia or scar. 4. Normal wall thickening and wall motion with an ejection fraction of more than 80%. 5. Scan indicates low risk for future cardiac events.
--- NOTE | 2016-11-26 20:12 | PDOC ---
Provider Note Provider Note She is scheduled for a LEONILA tomorrow to look for a cardiac source of embolization. She has had multiple infarcts on both cerebral hemispheres with no significant disease in the carotid arteries. MELISSA HERNÁNDEZ MD Nov 26, 2016 20:12
[2016-11-26] MEDS: ATORVASTATIN CALCIUM 10 MG TABLET. PO SCH (20:26)
[2016-11-26] MEDS: MIRTAZAPINE 7.5 MG TABLET. PO SCH (20:26)
[2016-11-26 23:00] VITALS: BP 171/72
[2016-11-27] VITALS (8 sets, daily range): BP systolic 147–181; BP diastolic 65–85
[2016-11-27] MEDS: IV NORMAL SALINE 1000ML BAG 1,000 ML IV SCH ×2 (03:00→16:20)
[2016-11-27 05:35] LABS: CHOLESTEROL/HDL RATIO 6.2
[2016-11-27] MEDS: metroNIDAZOLE 500 MG TABLET PO SCH (06:00)
[2016-11-27] MEDS: LEVOTHYROXINE 75 MCG TABLET PO SCH (07:00)
[2016-11-27] MEDS: hydrALAZINE 20 MG/ML VIAL. IVP PRN (07:48)
[2016-11-27] MEDS ORDERED: IV RINGERS,LACTATED 1000ML 1,000 ML IV SCH (07:52)
[2016-11-27] MEDS ORDERED: MORPHINE SULFATE 2 MG/ML DISP.SYRIN. IV PRN (08:00)
[2016-11-27] MEDS ORDERED: LIDOCAINE 1% 1 ML SYRINGE. ID PRN (08:00)
[2016-11-27] MEDS ORDERED: fentaNYL PF VIAL 100 MCG/2 ML VIAL IV PRN ×2 (08:00)
[2016-11-27] MEDS: ASPIRIN 325 MG TABLET PO SCH (08:00)
[2016-11-27] MEDS ORDERED: ONDANSETRON PF 4 MG/2 ML VIAL. IV PRN (08:00)
[2016-11-27] MEDS ORDERED: PROCHLORPERAZINE 10 MG/2 ML VIAL. IV PRN (08:00)
[2016-11-27] MEDS ORDERED: HYDROmorphone 2 MG/ML VIAL IV PRN (08:00)
[2016-11-27] MEDS: DOCUSATE SODIUM 100 MG CAPSULE. PO SCH ×2 (09:00→21:00)
[2016-11-27] MEDS: LABETALOL HCL 200 MG TABLET PO SCH ×2 (09:00→21:11)
[2016-11-27] MEDS: amLODIPine BESYLATE 10 MG TABLET PO SCH (09:00)
[2016-11-27] MEDS: ALLOPURINOL 100 MG TABLET. PO SCH (09:00)
--- NOTE | 2016-11-27 11:07 | PDOC ---
PROGRESS NOTES Chief Complaint Chief Complaint 1. 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 UTI,acute bronchitis? 3, REcent trichomoniasis 4. Hx CHF, echo 10/31 <Conclusion> Left ventricle systolic function is normal. The Ejection Fraction is 65-70%. There is normal LV segmental wall motion. Trace to mild mitral regurgitation. Trace tricuspid regurgitation. The PA pressure was estimated at 18 mmHg. There is no evidence of significant pericardial effusion. Mentions mPI plans by cards in 6 mos time 6. HTN, uncontrolled 7. Microcytic anemia 8. tayo Creat 1.6, unknown if CKD 9. 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 UNable to dc to [facility] today bec still cant swallow pills COnt IV rcoephin and IV procalamine Will dc to [facility] once able to take PO Dw RN Sven Vitals Vitals Vital Signs Date Time Temp Pulse Resp B/P (MAP) Pulse Ox O2 Delivery O2 Flow Rate FiO2 11/27/16 10:03 Room Air 11/27/16 10:01 99.9 82 16 127/71 93 99.9 11/27/16 09:46 5 Physical Exam General: Alert, Oriented X3, Cooperative, No acute distress Lungs: Clear Abdomen: Normal bowel sounds, Soft, No tenderness, No hepatosplenomegaly, No masses Extremities: No clubbing, No cyanosis, No edema, Normal pulses, No tenderness/ swelling Skin: No rashes, No breakdown, No significant lesion Labs LABS Laboratory Tests Test 11/27/16 04:55 Triglycerides Level 116 mg/dL (0-150) Cholesterol Level 281 mg/dL (0-200) LDL Cholesterol, Calculated 213 mg/dL (0-100) VLDL Cholesterol, Calculated 23 mg/dL (0-40) Non-HDL Cholesterol Calculated 236 mg/dL (0-129) HDL Cholesterol 45 mg/dL (40-60) Cholesterol/HDL Ratio 6.2 Review of Systems Review of Systems denies 14 pt Assessment and Plan Assessmemt and Plan Problems Medical Problems: (1) Acute on chronic congestive heart failure Status: Acute Problems: Comment Review of Relevant I have reviewed the following items hallie (where applicable) has been applied. Labs Laboratory Tests Test 11/27/16 04:55 Triglycerides Level 116 mg/dL (0-150) Cholesterol Level 281 mg/dL (0-200) LDL Cholesterol, Calculated 213 mg/dL (0-100) VLDL Cholesterol, Calculated 23 mg/dL (0-40) Non-HDL Cholesterol Calculated 236 mg/dL (0-129) HDL Cholesterol 45 mg/dL (40-60) Cholesterol/HDL Ratio 6.2 Laboratory Tests Test 11/27/16 04:55 Triglycerides Level 116 mg/dL (0-150) Cholesterol Level 281 mg/dL (0-200) LDL Cholesterol, Calculated 213 mg/dL (0-100) VLDL Cholesterol, Calculated 23 mg/dL (0-40) Non-HDL Cholesterol Calculated 236 mg/dL (0-129) HDL Cholesterol 45 mg/dL (40-60) Cholesterol/HDL Ratio 6.2 Microbiology 11/24/16 Urine Culture - Final, Complete 11/24/16 Urine Culture Result 1 (MARION) - Final, Complete 11/24/16 Antimicrobic Susceptibility - Final, Complete Medications Current Medications Ondansetron HCl (Zofran) 4 mg PRN Q6HRS PRN IV NAUSEA/VOMITING 1ST CHOICE; Start 11/24/16 at 13:30 Prochlorperazine Edisylate (Compazine) 10 mg PRN Q6HRS PRN IV NAUSEA/VOMITING; Start 11/24/16 at 13:30 Prochlorperazine (Compazine) 25 mg PRN Q12HR PRN [place] NAUSEA/VOMITING; Start 12/31 at 13:30 Morphine Sulfate 1 mg PRN Q2HR PRN IV PAIN; Start 11/24/16 at 13:30 Acetaminophen/ Hydrocodone Bitart (Lortab 5/325) 1 tab PRN Q4HRS PRN PO MILD PAIN, 2ND CHOICE; Start 11/24/16 at 13:30 Acetaminophen (Tylenol) 650 mg PRN Q6HRS PRN PO Headaches, Temp > 101.5F; Start 11/24/16 at 13:30 Ibuprofen (Motrin) 400 mg PRN Q6HRS PRN PO MILD PAIN; Start 11/24/16 at 13:30; Status Cancel Docusate Sodium (Colace) 100 mg BID PO ; Start 11/24/16 at 14:00 Magnesium Hydroxide (Milk Of Magnesia) 2,400 mg PRN Q12HR PRN PO CONSTIPATION; Start 11/24/16 at 13:30 Lactulose 20 gm PRN Q12HR PRN PO CONSTIPATION; Start 11/24/16 at 13:30 Bisacodyl (Dulcolax Supp) 10 mg PRN DAILY PRN [place] CONSTIPATION; Start 11/24/16 at 13:30 Enoxaparin Sodium (Lovenox 40mg Syringe) 40 mg DAILY16 SQ Last administered on 11/25/16 15:06; Start 11/24/16 at 16:00; Stop 11/26/16 at 13:47; Status DC Ceftriaxone Sodium 1 gm/ Sodium Chloride 50 ml @ 100 mls/hr Q24H IV Last administered on 11/26/16 16:00; Start 11/24/16 at 14:00 Metronidazole (Flagyl) 500 mg Q8HRS PO Last administered on 11/24/16 15:26; Start 11/24/16 at 14:00 Allopurinol (Zyloprim) 100 mg DAILY PO Last administered on 11/24/16 15:26; Start 11/24/16 at 14:00 Amlodipine Besylate (Norvasc) 10 mg DAILY PO Last administered on 11/24/16 15: 26; Start 11/24/16 at 14:00 Furosemide (Lasix) 60 mg DAILY PO Last administered on 11/24/16 15:26; Start 11/24/16 at 14:00; Stop 11/25/16 at 21:04; Status DC Labetalol HCl (Trandate) 200 mg BID PO Last administered on 11/24/16 15:25; Start 11/24/16 at 14:00 Levothyroxine Sodium (Synthroid) 75 mcg DAILY07 PO Last administered on 15:25; Start 11/24/16 at 14:00 Mirtazapine (Remeron) 7.5 mg QHS PO ; Start 11/24/16 at 21:00 Atorvastatin Calcium (Lipitor) 10 mg QHS PO ; Start 11/24/16 at 21:00 Labetalol HCl (Normodyne) 10 mg PRN Q2HR PRN IVP HYPERTENSION, SEE COMMENTS Last administered on 11/26/16 23:27; Start 11/24/16 at 13:45 Aspirin (Comfort Aspirin) 325 mg DAILYWBKFT PO Last administered on 11/24/16 15: 40; Start 11/24/16 at 13:45 Sodium Chloride 1,000 ml @ 75 mls/hr [id number] IV Last administered on 03:00; Start 11/25/16 at 11:00 Regadenoson (Lexiscan) 0.4 mg 1X ONCE IV Last administered on 11/26/16 10:38 ; Start 11/26/16 at 08:30; Stop 11/26/16 at 08:31; Status DC Hydralazine HCl (Apresoline) 10 mg PRN Q4HRS PRN IVP ELEVATED BP, SEE COMMENTS Last administered on 11/27/16 07:48; Start 11/26/16 at 08:45 Enoxaparin Sodium (Lovenox 30mg Syringe) 30 mg DAILY16 SQ Last administered on 11/26/16 16:00; Start 11/26/16 at 16:00 Ondansetron HCl (Zofran) 4 mg PRN Q6HRS PRN IV NAUSEA/VOMITING; Start 11/27/16 at 08:00; Stop 11/27/16 at 18:00 Fentanyl Citrate (Fentanyl 2ml Vial) 25 mcg PRN Q5MIN PRN IV MILD PAIN; Start 11/27/16 at 08:00; Stop 11/27/16 at 18:00 Fentanyl Citrate (Fentanyl 2ml Vial) 50 mcg PRN Q5MIN PRN IV MODERATE PAIN; Start 11/27/16 at 08:00; Stop 11/27/16 at 18:00 Morphine Sulfate 1 mg PRN Q10MIN PRN IV SEVERE PAIN; Start 11/27/16 at 08:00; Stop 11/27/16 at 18:00 Ringer's Solution 1,000 ml @ 30 mls/hr Q24H IV Last administered on 11/27/16 09:11; Start 11/27/16 at 07:52; Stop 11/27/16 at 19:51 Lidocaine HCl 2 ml PRN 1X PRN ID PRIOR TO IV START; Start 11/27/16 at 08:00; Stop 11/27/16 at 18:00 Hydromorphone HCl (Dilaudid) 0.5 mg PRN Q10MIN PRN IV SEV PAIN, Second choice; Start 11/27/16 at 08:00; Stop 11/27/16 at 18:00 Prochlorperazine Edisylate (Compazine) 5 mg PACU PRN PRN IV NAUSEA, MRX1; Start 11/27/16 at 08:00; Stop 11/27/16 at 18:00 Active Scripts Active Flagyl (Metronidazole) 500 Mg Tablet 500 Mg PO Q8HRS Reported Lasix (Furosemide) 20 Mg Tablet 3 Tab PO DAILY Simvastatin 20 Mg Tablet 1 Tab PO QHS Mirtazapine 7.5 Mg Tablet 7.5 Mg PO DAILY Allopurinol 100 Mg Tablet 1 Tab PO DAILY Levothyroxine Sodium 75 Mcg Tablet 1 Tab PO DAILY Labetalol Hcl 200 Mg Tablet 200 Mg PO BID Norvasc (Amlodipine Besylate) 10 Mg Tablet 10 Mg PO DAILY Vitals/I & O Vital Sign - Last 24 Hours 11/26/16 11/26/16 11/26/16 11/26/16 11:27 13:04 14:07 19:00 Temp 97.9 97.8 98.4 97.9 97.8 98.4 Pulse 87 81 85 Resp 17 18 19 B/P (MAP) 151/61 (91) 163/69 (100) 169/74 (105) Pulse Ox 96 96 O2 Delivery Room Air Room Air Room Air Room Air 11/26/16 11/26/16 11/26/16 11/27/16 19:51 23:00 23:27 03:00 Temp 98.4 98.7 98.4 98.7 Pulse 83 83 86 Resp 17 18 B/P (MAP) 171/72 (105) 171/72 153/73 (99) Pulse Ox 97 95 O2 Delivery Room Air Room Air Room Air 11/27/16 11/27/16 11/27/16 11/27/16 07:00 07:48 08:00 09:05 Temp 98.8 99.9 98.8 99.9 Pulse 79 86 82 Resp 20 16 B/P (MAP) 179/80 (113) 179/80 170/60 Pulse Ox 99 97 O2 Delivery Room Air Room Air Room Air O2 Flow Rate 5.0 11/27/16 11/27/16 11/27/16 09:46 10:01 10:03 Temp 99.0 99.9 99.0 99.9 Pulse 90 82 Resp 14 16 B/P (MAP) 146/54 127/71 Pulse Ox 99 93 O2 Delivery Room Air Room Air O2 Flow Rate 5 Intake and Output 11/27/16 11/27/16 11/28/16 15:00 23:00 07:00 Intake Total 150 ml Balance 150 ml NORMA JARAMILLO MD Nov 27, 2016 11:07
[2016-11-27] MEDS: LEVOTHYROXINE SODIUM 37.5 MCG in IV NORMAL SALINE 50ML 5 ML IVP SCH (12:41)
[2016-11-27] MEDS: ENOXAPARIN 30 MG/0.3 ML SYRINGE. SQ SCH (16:18)
--- NOTE | 2016-11-27 17:15 | PDOC ---
PROGRESS NOTES Assessment Assessment Acute 2 x 1 com infarct in right roslyn. Metabolic encephalopathy. SOB UTI HTN Renal failure. Hypothyroidism Old CVA Elevated uric acid. RECOMMENDATIONS/PLAN: Continue ASA 325 mg daily if not taking ASA before. Continue Lipitor HS. Treat medical diseases per floor team. OT/PT Past Medical History Cardiovascular: CHF, HTN, Hyperlipidemia CENTRAL NERVOUS SYSTEM: CVA GI: No pertinent hx Heme/Onc: No pertinent hx Hepatobiliary: No pertinent hx Psych: No pertinent hx Musculoskeletal: Osteoarthritis Rheumatologic: Gout Infectious disease: No pertinent hx Renal/: Chronic renal insuff, UTI Endocrine: Hypothyroidism Past Surgical History Hysterectomy Family History Stroke Social History Smoke: No ALCOHOL: none Drugs: None ALLERGY: Reviewed. MEDICATIONS: Refer to MAR REVIEW OF SYSTEMS: Constitutional: No malnutrition, or cachexia. Head: No recent traumatic brain or head injury. Skin: No edema, or rash. Ear: No infection, tinnitus. Eyes: No vision loss, or diplopia. Nose: No bleeding or purulent discharges. Hearing: Hearing decrease. Neck: No injury. Breast: No history of cancer, masses, or discharges. Cardiac: HTN, HLD Pulmonary: No CPOD. GI: No GI Ulcer, GI bleeding Urinary/genital: UTI. Endocrine: [id number]. Skeletomuscular: Generalized weakness. Neurological: see HP. Psychiatric: Denies drug use/abuse. Otherwise, not [id number] review of systems. PHYSICAL EXAMINATION: General appearance in subacute distress. HEENT: Normocephalic and nontraumatic. Eyes, nose, ears, and throat are unremarkable. Hearing decrease. Neck is supple. No lymphadenopathy. No bruits are heard over the carotid artery. No Crepitus. Cardiovascular: S1, S2, regular rate and rhythm. Pulmonary: Clear to auscultation bilaterally. Abdomen: Bowel sounds are positive. Extremities: No rash, lesions, or edema. No restriction of range of motion NEUROLOGICAL EXAMINATION: Awake. Not fully oriented to time, but knows place and person. PERRL. EOMI. CN: no focal findings. Muscle tone: within normal. Muscle strength: 4 DTR: 2 Plantar reflex: Neutral response bilaterally Gait: not examined in bed. Sensory exam: no abnormal findings. F-T-N test not accurate Objective Objective Vital Signs Date Time Temp Pulse Resp B/P (MAP) Pulse Ox O2 Delivery O2 Flow Rate FiO2 11/27/16 15:00 98.8 83 18 166/67 (100) 96 Room Air 98.8 11/27/16 09:46 5 Intake and Output 11/28/16 07:00 Intake Total 150 ml Balance 150 ml IV Total 150 ml Vitals Signs Vitals VS - Last 72 Hours, by Label Date Time Temp Pulse Resp B/P (MAP) Pulse Ox O2 Delivery O2 Flow Rate FiO2 11/27/16 15:00 98.8 83 18 166/67 (100) 96 Room Air 98.8 11/27/16 12:15 98.7 80 20 147/65 (92) 93 Room Air 98.7 11/27/16 12:00 98.7 89 20 181/72 (108) 93 Room Air 98.7 11/27/16 11:00 98.7 86 20 160/70 (100) 93 Room Air 98.7 11/27/16 10:03 Room Air 11/27/16 10:01 99.9 82 16 127/71 93 Room Air 99.9 11/27/16 09:46 99.0 90 14 146/54 99 5 99.0 11/27/16 09:05 99.9 82 16 170/60 97 Room Air 99.9 11/27/16 08:00 Room Air 5.0 11/27/16 07:48 86 179/80 11/27/16 07:00 98.8 79 20 179/80 (113) 99 Room Air 98.8 11/27/16 03:00 98.7 86 18 153/73 (99) 95 Room Air 98.7 11/26/16 23:27 83 171/72 11/26/16 23:00 98.4 83 17 171/72 (105) 97 Room Air 98.4 11/26/16 19:51 Room Air 11/26/16 19:00 98.4 85 19 169/74 (105) 96 Room Air 98.4 11/26/16 14:07 97.8 81 18 163/69 (100) 96 Room Air 97.8 11/26/16 13:04 Room Air 11/26/16 11:27 97.9 87 17 151/61 (91) Room Air 97.9 11/26/16 09:02 98.1 72 18 182/69 (106) 98 Room Air 98.1 11/26/16 08:49 78 182/69 11/26/16 08:00 Room Air 11/26/16 07:30 Room Air Laboratory Laboratory Laboratory Tests Test 11/27/16 04:55 Triglycerides Level 116 mg/dL (0-150) Cholesterol Level 281 mg/dL (0-200) LDL Cholesterol, Calculated 213 mg/dL (0-100) VLDL Cholesterol, Calculated 23 mg/dL (0-40) Non-HDL Cholesterol Calculated 236 mg/dL (0-129) HDL Cholesterol 45 mg/dL (40-60) Cholesterol/HDL Ratio 6.2 Microbiology 11/24/16 Urine Culture - Final, Complete 11/24/16 Urine Culture Result 1 (MARION) - Final, Complete 11/24/16 Antimicrobic Susceptibility - Final, Complete Medication Medications Current Medications Fentanyl Citrate (Fentanyl 2ml Vial) 25 mcg PRN Q5MIN PRN IV MILD PAIN; Start 11/27/16 at 08:00; Stop 11/27/16 at 18:00 Fentanyl Citrate (Fentanyl 2ml Vial) 50 mcg PRN Q5MIN PRN IV MODERATE PAIN; Start 11/27/16 at 08:00; Stop 11/27/16 at 18:00 Hydromorphone HCl (Dilaudid) 0.5 mg PRN Q10MIN PRN IV SEV PAIN, Second choice; Start 11/27/16 at 08:00; Stop 11/27/16 at 18:00 Levothyroxine Sodium 37.5 mcg/ Sodium Chloride 5 ml @ 100 mls/hr DAILY IVP Last administered on 11/27/16t 12:41; Start 11/27/16 at 12:00 Lidocaine HCl 2 ml PRN 1X PRN ID PRIOR TO IV START; Start 11/27/16 at 08:00; Stop 11/27/16 at 18:00 Morphine Sulfate 1 mg PRN Q10MIN PRN IV SEVERE PAIN; Start 11/27/16 at 08:00; Stop 11/27/16 at 18:00 Ondansetron HCl (Zofran) 4 mg PRN Q6HRS PRN IV NAUSEA/VOMITING; Start 11/27/16 at 08:00; Stop 11/27/16 at 18:00 Prochlorperazine Edisylate (Compazine) 5 mg PACU PRN PRN IV NAUSEA, MRX1; Start 11/27/16 at 08:00; Stop 11/27/16 at 18:00 Ringer's Solution 1,000 ml @ 30 mls/hr Q24H IV Last administered on 11/27/16t 09:11; Start 11/27/16 at 07:52; Stop 11/27/16 at 19:51 Comment Review of Relevant I have reviewed the following items hallie (where applicable) has been applied. TONE PRELSEY MD Nov 27, 2016 17:15
--- NOTE | 2016-11-27 17:35 | RAD ---
Single view abdomen dated 11/27/2016. No comparison available. CLINICAL INDICATION: Feeding tube placement. FINDINGS: Single supine portable exam performed. Interval placement of feeding tube with tip projected to the level of the gastric body. Bowel gas pattern is nonobstructive. IMPRESSION: Feeding tube tip projected to the level of the gastric body. Electronically signed by: Jesús Levy MD (11/27/2016 5:31 PM) [facility]
--- NOTE | 2016-11-27 20:57 | PDOC ---
Provider Note Provider Note Embolization around in the intracardiac structures. MPI was normal. Discussed with neurologists about the blood pressure control. I believe her blood pressure 160/80 at need to be further lowered. MELISSA HERNÁNDEZ MD Nov 27, 2016 20:57
[2016-11-27] MEDS: ATORVASTATIN CALCIUM 10 MG TABLET. PO SCH (21:09)
[2016-11-27] MEDS: MIRTAZAPINE 7.5 MG TABLET. PO SCH (21:09)
[2016-11-28] VITALS (7 sets, daily range): BP systolic 118–189; BP diastolic 58–114
[2016-11-28] MEDS: ASPIRIN 325 MG TABLET PO SCH ×2 (07:24→15:28)
[2016-11-28] MEDS: hydrALAZINE 20 MG/ML VIAL. IVP PRN (07:54)
[2016-11-28] MEDS: IV NORMAL SALINE 1000ML BAG 1,000 ML IV SCH (08:00)
[2016-11-28] MEDS: DOCUSATE SODIUM 100 MG CAPSULE. PO SCH ×2 (09:00→21:24)
[2016-11-28] MEDS: amLODIPine BESYLATE 10 MG TABLET PO SCH ×2 (09:00→15:28)
[2016-11-28] MEDS: LABETALOL HCL 200 MG TABLET PO SCH ×3 (09:00→21:27)
[2016-11-28] MEDS: ALLOPURINOL 100 MG TABLET. PO SCH ×2 (09:00→15:28)
[2016-11-28] MEDS: LEVOTHYROXINE SODIUM 37.5 MCG in IV NORMAL SALINE 50ML 5 ML IVP SCH (09:07)
[2016-11-28] MEDS ORDERED: ENALAPRILAT 1.25 MG/ML VIAL. IV SCH (09:45)
[2016-11-28] MEDS ORDERED: cloNIDine TTS-1 1 PATCH PATCH.TDWK TD SCH (09:45)
--- NOTE | 2016-11-28 12:02 | PDOC ---
PROGRESS NOTES Chief Complaint Chief Complaint 1. 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 UTI,acute bronchitis? 3, REcent trichomoniasis 4. Hx CHF, echo 10/31 <Conclusion> Left ventricle systolic function is normal. The Ejection Fraction is 65-70%. There is normal LV segmental wall motion. Trace to mild mitral regurgitation. Trace tricuspid regurgitation. The PA pressure was estimated at 18 mmHg. There is no evidence of significant pericardial effusion. Mentions mPI plans by cards in 6 mos time 6. HTN, uncontrolled 7. Microcytic anemia 8. tayo Creat 1.6, unknown if CKD 9. 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%) 9,.PERSISTENT DYSPHAGIA - NOW HAS rupali History of Present Illness History of Present Illness Dysphagia persists - failed [employer] again so I ordered rupali yesterday and now has it with TF (has been NPO x 3 days) BP high side Working with PT now [facility] wont take rupali but dtr would prefer [facility] - Manuelito Billings [employer]CHIT[employer] - for video swallow today PLAN: VIdeo swallow today USe rupali for pills Transfer synthroid back to PO DC vasalat scheduled iV Clonidine patch - Manuelito Field and Mara salazar NOt ready to dc as we are still working on swallow and rupali etc Vitals Vitals Vital Signs Date Time Temp Pulse Resp B/P (MAP) Pulse Ox O2 Delivery O2 Flow Rate FiO2 11/28/16 09:30 165/67 (99) 11/28/16 08:00 Room Air 11/28/16 07:54 87 11/28/16 07:00 98.6 18 97 98.6 11/27/16 09:46 5 Physical Exam General: Alert, Oriented X3, Cooperative, No acute distress Lungs: Clear Abdomen: Normal bowel sounds, Soft, No tenderness, No hepatosplenomegaly, No masses Extremities: No clubbing, No cyanosis, No edema, Normal pulses, No tenderness/ swelling Skin: No rashes, No breakdown, No significant lesion Review of Systems Review of Systems denies Assessment and Plan Assessmemt and Plan Problems Medical Problems: (1) Acute on chronic congestive heart failure Status: Acute Problems: Comment Review of Relevant I have reviewed the following items hallie (where applicable) has been applied. Labs Laboratory Tests Test 11/27/16 04:55 Triglycerides Level 116 mg/dL (0-150) Cholesterol Level 281 mg/dL (0-200) LDL Cholesterol, Calculated 213 mg/dL (0-100) VLDL Cholesterol, Calculated 23 mg/dL (0-40) Non-HDL Cholesterol Calculated 236 mg/dL (0-129) HDL Cholesterol 45 mg/dL (40-60) Cholesterol/HDL Ratio 6.2 Microbiology 11/24/16 Urine Culture - Final, Complete 11/24/16 Urine Culture Result 1 (MARION) - Final, Complete 11/24/16 Antimicrobic Susceptibility - Final, Complete Medications Current Medications Ondansetron HCl (Zofran) 4 mg PRN Q6HRS PRN IV NAUSEA/VOMITING 1ST CHOICE; Start 11/24/16 at 13:30 Prochlorperazine Edisylate (Compazine) 10 mg PRN Q6HRS PRN IV NAUSEA/VOMITING; Start 11/24/16 at 13:30 Prochlorperazine (Compazine) 25 mg PRN Q12HR PRN [place] NAUSEA/VOMITING; Start 12/31 at 13:30 Morphine Sulfate 1 mg PRN Q2HR PRN IV PAIN; Start 11/24/16 at 13:30 Acetaminophen/ Hydrocodone Bitart (Lortab 5/325) 1 tab PRN Q4HRS PRN PO MILD PAIN, 2ND CHOICE; Start 11/24/16 at 13:30 Acetaminophen (Tylenol) 650 mg PRN Q6HRS PRN PO Headaches, Temp > 101.5F; Start 11/24/16 at 13:30 Ibuprofen (Motrin) 400 mg PRN Q6HRS PRN PO MILD PAIN; Start 11/24/16 at 13:30; Status Cancel Docusate Sodium (Colace) 100 mg BID PO ; Start 11/24/16 at 14:00 Magnesium Hydroxide (Milk Of Magnesia) 2,400 mg PRN Q12HR PRN PO CONSTIPATION; Start 11/24/16 at 13:30 Lactulose 20 gm PRN Q12HR PRN PO CONSTIPATION; Start 11/24/16 at 13:30 Bisacodyl (Dulcolax Supp) 10 mg PRN DAILY PRN [place] CONSTIPATION; Start 11/24/16 at 13:30 Enoxaparin Sodium (Lovenox 40mg Syringe) 40 mg DAILY16 SQ Last administered on 11/25/16t 15:06; Start 11/24/16 at 16:00; Stop 11/26/16 at 13:47; Status DC Ceftriaxone Sodium 1 gm/ Sodium Chloride 50 ml @ 100 mls/hr Q24H IV Last administered on 11/27/16 16:17; Start 11/24/16 at 14:00 Metronidazole (Flagyl) 500 mg Q8HRS PO Last administered on 11/24/16 15:26; Start 11/24/16 at 14:00; Stop 11/27/16 at 11:18; Status DC Allopurinol (Zyloprim) 100 mg DAILY PO Last administered on 11/24/16 15:26; Start 11/24/16 at 14:00 Amlodipine Besylate (Norvasc) 10 mg DAILY PO Last administered on 11/24/16 15: 26; Start 11/24/16 at 14:00 Furosemide (Lasix) 60 mg DAILY PO Last administered on 11/24/16 15:26; Start 11/24/16 at 14:00; Stop 11/25/16 at 21:04; Status DC Labetalol HCl (Trandate) 200 mg BID PO Last administered on 11/27/16 21:11; Start 11/24/16 at 14:00 Levothyroxine Sodium (Synthroid) 75 mcg DAILY07 PO Last administered on 15:25; Start 11/24/16 at 14:00; Stop 11/27/16 at 11:18; Status DC Mirtazapine (Remeron) 7.5 mg QHS PO Last administered on 11/27/16 21:09; Start 11/24/16 at 21:00 Atorvastatin Calcium (Lipitor) 10 mg QHS PO Last administered on 11/27/16 21: 09; Start 11/24/16 at 21:00 Labetalol HCl (Normodyne) 10 mg PRN Q2HR PRN IVP HYPERTENSION, SEE COMMENTS Last administered on 11/26/16 23:27; Start 11/24/16 at 13:45 Aspirin (Comfort Aspirin) 325 mg DAILYWBKFT PO Last administered on 11/24/16 15: 40; Start 11/24/16 at 13:45 Sodium Chloride 1,000 ml @ 75 mls/hr [id number] IV Last administered on 03:00; Start 11/25/16 at 11:00; Stop 11/28/16 at 09:37; Status DC Regadenoson (Lexiscan) 0.4 mg 1X ONCE IV Last administered on 11/26/16 10:38 ; Start 11/26/16 at 08:30; Stop 11/26/16 at 08:31; Status DC Hydralazine HCl (Apresoline) 10 mg PRN Q4HRS PRN IVP ELEVATED BP, SEE COMMENTS Last administered on 11/28/16 07:54; Start 11/26/16 at 08:45 Enoxaparin Sodium (Lovenox 30mg Syringe) 30 mg DAILY16 SQ Last administered on 11/27/16 16:18; Start 11/26/16 at 16:00 Ondansetron HCl (Zofran) 4 mg PRN Q6HRS PRN IV NAUSEA/VOMITING; Start 11/27/16 at 08:00; Stop 11/27/16 at 18:00; Status DC Fentanyl Citrate (Fentanyl 2ml Vial) 25 mcg PRN Q5MIN PRN IV MILD PAIN; Start 11/27/16 at 08:00; Stop 11/27/16 at 18:00; Status DC Fentanyl Citrate (Fentanyl 2ml Vial) 50 mcg PRN Q5MIN PRN IV MODERATE PAIN; Start 11/27/16 at 08:00; Stop 11/27/16 at 18:00; Status DC Morphine Sulfate 1 mg PRN Q10MIN PRN IV SEVERE PAIN; Start 11/27/16 at 08:00; Stop 11/27/16 at 18:00; Status DC Ringer's Solution 1,000 ml @ 30 mls/hr Q24H IV Last administered on 11/27/16 09:11; Start 11/27/16 at 07:52; Stop 11/27/16 at 19:51; Status DC Lidocaine HCl 2 ml PRN 1X PRN ID PRIOR TO IV START; Start 11/27/16 at 08:00; Stop 11/27/16 at 18:00; Status DC Hydromorphone HCl (Dilaudid) 0.5 mg PRN Q10MIN PRN IV SEV PAIN, Second choice; Start 11/27/16 at 08:00; Stop 11/27/16 at 18:00; Status DC Prochlorperazine Edisylate (Compazine) 5 mg PACU PRN PRN IV NAUSEA, MRX1; Start 11/27/16 at 08:00; Stop 11/27/16 at 18:00; Status DC Levothyroxine Sodium 37.5 mcg/ Sodium Chloride 5 ml @ 100 mls/hr DAILY IVP Last administered on 11/28/16 09:07; Start 11/27/16 at 12:00 Clonidine HCl (Catapres Tts-1) 1 patch WEEKLY TD Last administered on 10:09; Start 11/28/16 at 09:45 Enalaprilat (Vasotec) 1.25 mg Q6HRS IV ; Start 11/28/16 at 09:45 Active Scripts Active Flagyl (Metronidazole) 500 Mg Tablet 500 Mg PO Q8HRS Reported Lasix (Furosemide) 20 Mg Tablet 3 Tab PO DAILY Simvastatin 20 Mg Tablet 1 Tab PO QHS Mirtazapine 7.5 Mg Tablet 7.5 Mg PO DAILY Allopurinol 100 Mg Tablet 1 Tab PO DAILY Levothyroxine Sodium 75 Mcg Tablet 1 Tab PO DAILY Labetalol Hcl 200 Mg Tablet 200 Mg PO BID Norvasc (Amlodipine Besylate) 10 Mg Tablet 10 Mg PO DAILY Vitals/I & O Vital Sign - Last 24 Hours 11/27/16 11/27/16 11/27/16 11/27/16 12:00 12:15 15:00 19:19 Temp 98.7 98.7 98.8 98.4 98.7 98.7 98.8 98.4 Pulse 89 80 83 75 Resp 20 20 18 18 B/P (MAP) 181/72 (108) 147/65 (92) 166/67 (100) 165/77 (106) Pulse Ox 93 93 96 96 O2 Delivery Room Air Room Air Room Air Room Air 11/27/16 11/27/16 11/27/16 11/28/16 20:00 21:11 23:12 02:24 Temp 98.3 98.0 98.3 98.0 Pulse 75 100 Resp 18 20 B/P (MAP) 165/77 172/85 (114) 162/70 (100) Pulse Ox 94 95 O2 Delivery Room Air Room Air Room Air 11/28/16 11/28/16 11/28/16 11/28/16 07:00 07:54 08:00 09:30 Temp 98.6 98.6 Pulse 77 87 Resp 18 B/P (MAP) 189/83 (118) 180/85 165/67 (99) Pulse Ox 97 O2 Delivery Room Air Room Air NORMA JARAMILLO MD Nov 28, 2016 12:02
[2016-11-28] MEDS ORDERED: BARIUM SULFATE 40% (APPLE) 148 GM PWD. PO ONE (12:15)
--- NOTE | 2016-11-28 13:45 | RAD ---
Indication brainstem CVA. Signs and symptoms of aspiration. With a member of the Department of speech pathology swallowing was evaluated. 7 fluoroscopic spot images were obtained. Contrast time associated with the examination was 3.4 minutes. Note was made during the examination of a Dobbhoff feeding tube with its tip positioned in the mid esophagus. The tube should be advanced. A moderate amount of residual was identified in the vallecula. With repetitive swallowing a small amount of this material was positioned near the anterior commissure. A small amount of this material at the anterior commissure was subsequently aspirated which did not induce a cough. See speech pathology notes for additional details. IMPRESSION: Modest amount of residual in the vallecula. With repetitive swallowing some of this material was positioned in the area of the anterior commissure and subsequently aspirated. Dobbhoff feeding tube with its tip in the midesophagus
--- NOTE | 2016-11-28 14:38 | RAD ---
Single view of the abdomen 11/28/2016 Indication: Evaluate Dobbhoff placement Discussion: There is a weighted feeding tube which appears to have its tip projecting over the expected region of the gastric fundus. The tip of the catheter is secured by barium. Bowel gas pattern is nonspecific and nonobstructive. No acute osseous changes are seen. Impression: There is an enteric tube in place which appears to have its tip in the gastric fundus, but is obscured by barium
[2016-11-28] MEDS: ENOXAPARIN 30 MG/0.3 ML SYRINGE. SQ SCH (15:31)
--- NOTE | 2016-11-28 15:34 | PDOC ---
PROGRESS NOTES Assessment Assessment Acute 2 cm x 1 cm infarct in right roslyn. Metabolic encephalopathy. SOB UTI HTN Renal failure. Hypothyroidism Old CVA Elevated uric acid. RECOMMENDATIONS/PLAN: Continue ASA 325 mg daily if not taking ASA before. Continue Lipitor HS. Treat medical diseases per floor team. OT/PT FU with PCP. FU with neurology in 1 month. Past Medical History Cardiovascular: CHF, HTN, Hyperlipidemia CENTRAL NERVOUS SYSTEM: CVA GI: No pertinent hx Heme/Onc: No pertinent hx Hepatobiliary: No pertinent hx Psych: No pertinent hx Musculoskeletal: Osteoarthritis Rheumatologic: Gout Infectious disease: No pertinent hx Renal/: Chronic renal insuff, UTI Endocrine: Hypothyroidism Past Surgical History Hysterectomy Family History Stroke Social History Smoke: No ALCOHOL: none Drugs: None ALLERGY: Reviewed. MEDICATIONS: Refer to MAR REVIEW OF SYSTEMS: Constitutional: No malnutrition, or cachexia. Head: No recent traumatic brain or head injury. Skin: No edema, or rash. Ear: No infection, tinnitus. Eyes: No vision loss, or diplopia. Nose: No bleeding or purulent discharges. Hearing: Hearing decrease. Neck: No injury. Breast: No history of cancer, masses, or discharges. Cardiac: HTN, HLD Pulmonary: No CPOD. GI: No GI Ulcer, GI bleeding Urinary/genital: UTI. Endocrine: [id number]. Skeletomuscular: Generalized weakness. Neurological: see HP. Psychiatric: Denies drug use/abuse. Otherwise, not [id number] review of systems. PHYSICAL EXAMINATION: General appearance in subacute distress. HEENT: Normocephalic and nontraumatic. Eyes, nose, ears, and throat are unremarkable. Hearing decrease. Neck is supple. No lymphadenopathy. No bruits are heard over the carotid artery. No Crepitus. Cardiovascular: S1, S2, regular rate and rhythm. Pulmonary: Clear to auscultation bilaterally. Abdomen: Bowel sounds are positive. Extremities: No rash, lesions, or edema. No restriction of range of motion NEUROLOGICAL EXAMINATION: Awake. Sitting in chair. Not fully oriented to time, but knows place and person. PERRL. EOMI. CN: no focal findings. Muscle tone: within normal. Muscle strength: 4 DTR: 2 Plantar reflex: Neutral response bilaterally Gait: not examined in bed. Sensory exam: no abnormal findings. F-T-N test not accurate especially in right side. Objective Objective Vital Signs Date Time Temp Pulse Resp B/P (MAP) Pulse Ox O2 Delivery O2 Flow Rate FiO2 11/28/16 11:00 98.9 82 21 170/69 (102) 98 Room Air 98.9 11/27/16 09:46 5 Vitals Signs Vitals VS - Last 72 Hours, by Label Date Time Temp Pulse Resp B/P (MAP) Pulse Ox O2 Delivery O2 Flow Rate FiO2 11/28/16 11:00 98.9 82 21 170/69 (102) 98 Room Air 98.9 11/28/16 09:30 165/67 (99) 11/28/16 08:00 Room Air 11/28/16 07:54 87 180/85 11/28/16 07:00 98.6 77 18 189/83 (118) 97 Room Air 98.6 11/28/16 02:24 98.0 20 162/70 (100) 95 Room Air 98.0 11/27/16 23:12 98.3 100 18 172/85 (114) 94 Room Air 98.3 11/27/16 21:11 75 165/77 11/27/16 20:00 Room Air 11/27/16 19:19 98.4 75 18 165/77 (106) 96 Room Air 98.4 11/27/16 15:00 98.8 83 18 166/67 (100) 96 Room Air 98.8 11/27/16 12:15 98.7 80 20 147/65 (92) 93 Room Air 98.7 11/27/16 12:00 98.7 89 20 181/72 (108) 93 Room Air 98.7 11/27/16 11:00 98.7 86 20 160/70 (100) 93 Room Air 98.7 11/27/16 10:03 Room Air 11/27/16 10:01 99.9 82 16 127/71 93 Room Air 99.9 11/27/16 09:46 99.0 90 14 146/54 99 5 99.0 11/27/16 09:05 99.9 82 16 170/60 97 Room Air 99.9 11/27/16 08:00 Room Air 5.0 11/27/16 07:48 86 179/80 11/27/16 07:00 98.8 79 20 179/80 (113) 99 Room Air 98.8 Laboratory Laboratory Microbiology 11/24/16 Urine Culture - Final, Complete 11/24/16 Urine Culture Result 1 (MARION) - Final, Complete 11/24/16 Antimicrobic Susceptibility - Final, Complete Medication Medications Current Medications Barium Sulfate (Varibar Thin Liquid Apple) 148 gm 1X ONCE PO Last administered on 11/28/16 13:09; Start 11/28/16 at 12:15; Stop 11/28/16 at 12:16 ; Status DC Clonidine HCl (Catapres Tts-1) 1 patch WEEKLY TD Last administered on 10:09; Start 11/28/16 at 09:45 Enalaprilat (Vasotec) 1.25 mg Q6HRS IV ; Start 11/28/16 at 09:45; Stop 11/28/16 at 11:58; Status DC Levothyroxine Sodium (Synthroid) 75 mcg DAILY07 PO ; Start 11/29/16 at 07:00 Comment Review of Relevant I have reviewed the following items hallie (where applicable) has been applied. TONE PRESLEY MD Nov 28, 2016 15:34
--- NOTE | 2016-11-28 20:49 | PDOC ---
Provider Note Provider Note She did not pass a swallow test today. Daughter did not come in today and she said she was not aware of of this. Systolic blood pressure runs between 130 and 180 mmHg. Clonidine patch has been added. Agree with clonidine patches. Dobhoff tube got displaced today and had to be repositioned. A repeat feels that she should not take have oral intake for another 2-4 weeks. We probably need to consider a PEG tube. Spoke to Azra her daughter who I have known before from taking care of her father. She said she'll think about it. MELISSA HERNÁNDEZ MD Nov 28, 2016 20:49
[2016-11-28] MEDS: ATORVASTATIN CALCIUM 10 MG TABLET. PO SCH (21:27)
[2016-11-28] MEDS: MIRTAZAPINE 7.5 MG TABLET. PO SCH (21:27)
[2016-11-28] MEDS: SCOPOLAMINE 1.5MG PATCH. TD SCH (22:34)
[2016-11-29 03:59] VITALS: BP 141/53
[2016-11-29] MEDS: LEVOTHYROXINE 75 MCG TABLET PO SCH (06:01)
[2016-11-29 07:00] VITALS: BP 141/62
[2016-11-29] MEDS: DOCUSATE SODIUM 100 MG CAPSULE. PO SCH ×2 (09:00→20:52)
[2016-11-29] MEDS: ALLOPURINOL 100 MG TABLET. PO SCH (09:35)
[2016-11-29] MEDS: ASPIRIN 325 MG TABLET PO SCH (09:35)
[2016-11-29] MEDS: LABETALOL HCL 200 MG TABLET PO SCH ×2 (09:36→21:12)
[2016-11-29] MEDS: amLODIPine BESYLATE 10 MG TABLET PO SCH (09:37)
[2016-11-29 11:00] VITALS: BP 127/48
--- NOTE | 2016-11-29 13:15 | PDOC ---
PROGRESS NOTES Chief Complaint Chief Complaint 1. 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 UTI,acute bronchitis? 3, REcent trichomoniasis 4. Hx CHF, echo 10/31 <Conclusion> Left ventricle systolic function is normal. The Ejection Fraction is 65-70%. There is normal LV segmental wall motion. Trace to mild mitral regurgitation. Trace tricuspid regurgitation. The PA pressure was estimated at 18 mmHg. There is no evidence of significant pericardial effusion. Mentions mPI plans by cards in 6 mos time 6. HTN, uncontrolled 7. Microcytic anemia 8. tayo Creat 1.6, unknown if CKD 9. 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 [facility] rehab upon dc BP better PLAN: PEG on friday GI consult now Dc SNU next week after PEG with controlled BP Manuelito RN and Dr. Pond Vitals Vitals Vital Signs Date Time Temp Pulse Resp B/P (MAP) Pulse Ox O2 Delivery O2 Flow Rate FiO2 11/29/16 11:00 98.2 70 17 127/48 (74) 97 Room Air 98.2 Physical Exam General: Alert, Oriented X3, Cooperative, No acute distress Lungs: Clear Abdomen: Normal bowel sounds, Soft, No tenderness, No hepatosplenomegaly, No masses Extremities: No clubbing, No cyanosis, No edema, Normal pulses, No tenderness/ swelling Skin: No rashes, No breakdown, No significant lesion Review of Systems Review of Systems denies Assessment and Plan Assessmemt and Plan Problems Medical Problems: (1) Acute on chronic congestive heart failure Status: Acute Problems: Comment Review of Relevant I have reviewed the following items hallie (where applicable) has been applied. Labs Microbiology 11/24/16 Urine Culture - Final, Complete 11/24/16 Urine Culture Result 1 (MARION) - Final, Complete 11/24/16 Antimicrobic Susceptibility - Final, Complete Medications Current Medications Ondansetron HCl (Zofran) 4 mg PRN Q6HRS PRN IV NAUSEA/VOMITING 1ST CHOICE; Start 11/24/16 at 13:30 Prochlorperazine Edisylate (Compazine) 10 mg PRN Q6HRS PRN IV NAUSEA/VOMITING; Start 11/24/16 at 13:30 Prochlorperazine (Compazine) 25 mg PRN Q12HR PRN WI NAUSEA/VOMITING; Start 12/31 at 13:30 Morphine Sulfate 1 mg PRN Q2HR PRN IV PAIN; Start 11/24/16 at 13:30 Acetaminophen/ Hydrocodone Bitart (Lortab 5/325) 1 tab PRN Q4HRS PRN PO MILD PAIN, 2ND CHOICE; Start 11/24/16 at 13:30 Acetaminophen (Tylenol) 650 mg PRN Q6HRS PRN PO Headaches, Temp > 101.5F; Start 11/24/16 at 13:30 Ibuprofen (Motrin) 400 mg PRN Q6HRS PRN PO MILD PAIN; Start 11/24/16 at 13:30; Status Cancel Docusate Sodium (Colace) 100 mg BID PO Last administered on 11/28/16 21:24; Start 11/24/16 at 14:00 Magnesium Hydroxide (Milk Of Magnesia) 2,400 mg PRN Q12HR PRN PO CONSTIPATION; Start 11/24/16 at 13:30 Lactulose 20 gm PRN Q12HR PRN PO CONSTIPATION; Start 11/24/16 at 13:30 Bisacodyl (Dulcolax Supp) 10 mg PRN DAILY PRN WI CONSTIPATION; Start 11/24/16 at 13:30 Enoxaparin Sodium (Lovenox 40mg Syringe) 40 mg DAILY16 SQ Last administered on 11/25/16 15:06; Start 11/24/16 at 16:00; Stop 11/26/16 at 13:47; Status DC Ceftriaxone Sodium 1 gm/ Sodium Chloride 50 ml @ 100 mls/hr Q24H IV Last administered on 11/28/16 14:00; Start 11/24/16 at 14:00 Metronidazole (Flagyl) 500 mg Q8HRS PO Last administered on 11/24/16 15:26; Start 11/24/16 at 14:00; Stop 11/27/16 at 11:18; Status DC Allopurinol (Zyloprim) 100 mg DAILY PO Last administered on 11/29/16 09:35; Start 11/24/16 at 14:00 Amlodipine Besylate (Norvasc) 10 mg DAILY PO Last administered on 11/29/16 09: 37; Start 11/24/16 at 14:00 Furosemide (Lasix) 60 mg DAILY PO Last administered on 11/24/16 15:26; Start 11/24/16 at 14:00; Stop 11/25/16 at 21:04; Status DC Labetalol HCl (Trandate) 200 mg BID PO Last administered on 11/29/16 09:36; Start 11/24/16 at 14:00 Levothyroxine Sodium (Synthroid) 75 mcg DAILY07 PO Last administered on 15:25; Start 11/24/16 at 14:00; Stop 11/27/16 at 11:18; Status DC Mirtazapine (Remeron) 7.5 mg QHS PO Last administered on 11/28/16 21:27; Start 11/24/16 at 21:00 Atorvastatin Calcium (Lipitor) 10 mg QHS PO Last administered on 11/28/16 21: 27; Start 11/24/16 at 21:00 Labetalol HCl (Normodyne) 10 mg PRN Q2HR PRN IVP HYPERTENSION, SEE COMMENTS Last administered on 11/26/16 23:27; Start 11/24/16 at 13:45 Aspirin (Comfort Aspirin) 325 mg DAILYWBKFT PO Last administered on 11/29/16 09: 35; Start 11/24/16 at 13:45 Sodium Chloride 1,000 ml @ 75 mls/hr [id number] IV Last administered on 03:00; Start 11/25/16 at 11:00; Stop 11/28/16 at 09:37; Status DC Regadenoson (Lexiscan) 0.4 mg 1X ONCE IV Last administered on 11/26/16 10:38 ; Start 11/26/16 at 08:30; Stop 11/26/16 at 08:31; Status DC Hydralazine HCl (Apresoline) 10 mg PRN Q4HRS PRN IVP ELEVATED BP, SEE COMMENTS Last administered on 11/28/16 07:54; Start 11/26/16 at 08:45 Enoxaparin Sodium (Lovenox 30mg Syringe) 30 mg DAILY16 SQ Last administered on 11/28/16 15:31; Start 11/26/16 at 16:00 Ondansetron HCl (Zofran) 4 mg PRN Q6HRS PRN IV NAUSEA/VOMITING; Start 11/27/16 at 08:00; Stop 11/27/16 at 18:00; Status DC Fentanyl Citrate (Fentanyl 2ml Vial) 25 mcg PRN Q5MIN PRN IV MILD PAIN; Start 11/27/16 at 08:00; Stop 11/27/16 at 18:00; Status DC Fentanyl Citrate (Fentanyl 2ml Vial) 50 mcg PRN Q5MIN PRN IV MODERATE PAIN; Start 11/27/16 at 08:00; Stop 11/27/16 at 18:00; Status DC Morphine Sulfate 1 mg PRN Q10MIN PRN IV SEVERE PAIN; Start 11/27/16 at 08:00; Stop 11/27/16 at 18:00; Status DC Ringer's Solution 1,000 ml @ 30 mls/hr Q24H IV Last administered on 11/27/16 09:11; Start 11/27/16 at 07:52; Stop 11/27/16 at 19:51; Status DC Lidocaine HCl 2 ml PRN 1X PRN ID PRIOR TO IV START; Start 11/27/16 at 08:00; Stop 11/27/16 at 18:00; Status DC Hydromorphone HCl (Dilaudid) 0.5 mg PRN Q10MIN PRN IV SEV PAIN, Second choice; Start 11/27/16 at 08:00; Stop 11/27/16 at 18:00; Status DC Prochlorperazine Edisylate (Compazine) 5 mg PACU PRN PRN IV NAUSEA, MRX1; Start 11/27/16 at 08:00; Stop 11/27/16 at 18:00; Status DC Levothyroxine Sodium 37.5 mcg/ Sodium Chloride 5 ml @ 100 mls/hr DAILY IVP Last administered on 11/28/16 09:07; Start 11/27/16 at 12:00; Stop 11/28/16 at 11:58; Status DC Clonidine HCl (Catapres Tts-1) 1 patch WEEKLY TD Last administered on 10:09; Start 11/28/16 at 09:45 Enalaprilat (Vasotec) 1.25 mg Q6HRS IV ; Start 11/28/16 at 09:45; Stop 11/28/16 at 11:58; Status DC Levothyroxine Sodium (Synthroid) 75 mcg DAILY07 PO Last administered on 06:01; Start 11/29/16 at 07:00 Barium Sulfate (Varibar Thin Liquid Apple) 148 gm 1X ONCE PO Last administered on 11/28/16 13:09; Start 11/28/16 at 12:15; Stop 11/28/16 at 12:16 ; Status DC Scopolamine (Transderm-Scop) 1 patch Q72H TD Last administered on 11/28/16 22: 34; Start 11/28/16 at 20:15 Active Scripts Active Flagyl (Metronidazole) 500 Mg Tablet 500 Mg PO Q8HRS Reported Lasix (Furosemide) 20 Mg Tablet 3 Tab PO DAILY Simvastatin 20 Mg Tablet 1 Tab PO QHS Mirtazapine 7.5 Mg Tablet 7.5 Mg PO DAILY Allopurinol 100 Mg Tablet 1 Tab PO DAILY Levothyroxine Sodium 75 Mcg Tablet 1 Tab PO DAILY Labetalol Hcl 200 Mg Tablet 200 Mg PO BID Norvasc (Amlodipine Besylate) 10 Mg Tablet 10 Mg PO DAILY Vitals/I & O Vital Sign - Last 24 Hours 11/28/16 11/28/16 11/28/16 11/28/16 15:00 15:28 15:29 19:30 Temp 98.5 97.5 98.5 97.5 Pulse 82 83 82 78 Resp 20 18 B/P (MAP) 170/114 (132) 182/80 184/80 136/63 (87) Pulse Ox 97 95 O2 Delivery Room Air Room Air 11/28/16 11/28/16 11/28/16 11/29/16 20:08 21:27 23:16 03:59 Temp 97.5 98.1 97.5 98.1 Pulse 69 69 77 Resp 16 16 B/P (MAP) 143/65 118/58 (78) 141/53 (82) Pulse Ox 91 92 O2 Delivery Room Air Room Air Room Air 11/29/16 11/29/16 11/29/16 11/29/16 07:00 08:17 09:36 09:37 Temp 98.2 98.2 Pulse 77 70 73 Resp 19 B/P (MAP) 141/62 (88) 146/64 146/64 Pulse Ox 98 O2 Delivery Room Air Room Air 11/29/16 11:00 Temp 98.2 98.2 Pulse 70 Resp 17 B/P (MAP) 127/48 (74) Pulse Ox 97 O2 Delivery Room Air NORMA JARAMILLO MD Nov 29, 2016 13:15
--- NOTE | 2016-11-29 13:27 | PDOC ---
PROGRESS NOTES Assessment Assessment Acute 2 cm x 1 cm infarct in right roslyn. Metabolic encephalopathy. SOB UTI HTN Renal failure. Hypothyroidism Old CVA Elevated uric acid. RECOMMENDATIONS/PLAN: Continue ASA 325 mg daily ( She did not take ASA before per her nurse).. Continue Lipitor HS. Treat medical diseases per floor team. OT/PT FU with PCP. FU with Neurology in 1 month. Past Medical History Cardiovascular: CHF, HTN, Hyperlipidemia CENTRAL NERVOUS SYSTEM: CVA GI: No pertinent hx Heme/Onc: No pertinent hx Hepatobiliary: No pertinent hx Psych: No pertinent hx Musculoskeletal: Osteoarthritis Rheumatologic: Gout Infectious disease: No pertinent hx Renal/: Chronic renal insuff, UTI Endocrine: Hypothyroidism Past Surgical History Hysterectomy Family History Stroke Social History Smoke: No ALCOHOL: none Drugs: None ALLERGY: Reviewed. MEDICATIONS: Refer to MAR REVIEW OF SYSTEMS: Constitutional: No malnutrition, or cachexia. Head: No recent traumatic brain or head injury. Skin: No edema, or rash. Ear: No infection, tinnitus. Eyes: No vision loss, or diplopia. Nose: No bleeding or purulent discharges. Hearing: Hearing decrease. Neck: No injury. Breast: No history of cancer, masses, or discharges. Cardiac: HTN, HLD Pulmonary: No CPOD. GI: No GI Ulcer, GI bleeding Urinary/genital: UTI. Endocrine: [id number]. Skeletomuscular: Generalized weakness. Neurological: see HP. Psychiatric: Denies drug use/abuse. Otherwise, not [id number] review of systems. PHYSICAL EXAMINATION: General appearance in subacute distress. HEENT: Normocephalic and nontraumatic. Eyes, nose, ears, and throat are unremarkable. Hearing decrease. Neck is supple. No lymphadenopathy. No bruits are heard over the carotid artery. No Crepitus. Cardiovascular: S1, S2, regular rate and rhythm. Pulmonary: Clear to auscultation bilaterally. Abdomen: Bowel sounds are positive. Extremities: No rash, lesions, or edema. No restriction of range of motion NEUROLOGICAL EXAMINATION: Awake. Sitting in chair. Still has dysarthria, but improved than before. Not fully oriented to time, but knows place and person. PERRL. EOMI. CN: no focal findings. Muscle tone: within normal. Muscle strength: 4 DTR: 2 Plantar reflex: Neutral response bilaterally Gait: not examined in bed. Sensory exam: no abnormal findings. F-T-N test not accurate especially in right side. Objective Objective Vital Signs Date Time Temp Pulse Resp B/P (MAP) Pulse Ox O2 Delivery O2 Flow Rate FiO2 11/29/16 11:00 98.2 70 17 127/48 (74) 97 Room Air 98.2 Vitals Signs Vitals VS - Last 72 Hours, by Label Date Time Temp Pulse Resp B/P (MAP) Pulse Ox O2 Delivery O2 Flow Rate FiO2 11/29/16 11:00 98.2 70 17 127/48 (74) 97 Room Air 98.2 11/29/16 09:37 73 146/64 11/29/16 09:36 70 146/64 11/29/16 08:17 Room Air 11/29/16 07:00 98.2 77 19 141/62 (88) 98 Room Air 98.2 11/29/16 03:59 98.1 77 16 141/53 (82) 92 Room Air 98.1 11/28/16 23:16 97.5 69 16 118/58 (78) 91 Room Air 97.5 11/28/16 21:27 69 143/65 11/28/16 20:08 Room Air 11/28/16 19:30 97.5 78 18 136/63 (87) 95 Room Air 97.5 11/28/16 15:29 82 184/80 11/28/16 15:28 83 182/80 11/28/16 15:00 98.5 82 20 170/114 (132) 97 Room Air 98.5 11/28/16 11:00 98.9 82 21 170/69 (102) 98 Room Air 98.9 11/28/16 09:30 165/67 (99) 11/28/16 08:00 Room Air 11/28/16 07:54 87 180/85 11/28/16 07:00 98.6 77 18 189/83 (118) 97 Room Air 98.6 Laboratory Laboratory Microbiology 11/24/16 Urine Culture - Final, Complete 11/24/16 Urine Culture Result 1 (MARION) - Final, Complete 11/24/16 Antimicrobic Susceptibility - Final, Complete Medication Medications Current Medications Levothyroxine Sodium (Synthroid) 75 mcg DAILY07 PO Last administered on t 06:01; Start 11/29/16 at 07:00 Scopolamine (Transderm-Scop) 1 patch Q72H TD Last administered on 11/28/16t 22: 34; Start 11/28/16 at 20:15 Comment Review of Relevant I have reviewed the following items hallie (where applicable) has been applied. TONE PRESLEY MD Nov 29, 2016 13:27
--- NOTE | 2016-11-29 14:41 | PDOC2 ---
GI CONSULT Reason For Consult: PEG HPI: HPI: 81 y/o female admitted 11/24/16. Had right roslyn infarct, now w/ neurogenic dysphagia and silent aspiration. Per review of RAIL TRANSPORTATION OPERATOR notes, expect need for 2-4 weeks of non-oral nutrition. Has Dobhoff currently. Family (daughter Azra is DPOA, has discussed w/ RN via phone) and patient would like to proceed w/ PEG tube placement, hence GI consult. Denies n/v, reflux/heartburn, abd pain, diarrhea, constipation, hematochezia, melena. No previous EGD or colonoscopy. No liver, gallbladder, or pancreas history. On ASA and Lovenox. PMH: PMH: CHF, HTN, HLD, CVA, OA, gout, CKD, UTI, hypothyroidism, hysterectomy FH: Family History: CVA Social History: Smoke: No ALCOHOL: none Drugs: None ROS: GEN: Denies fevers, chills, sweats HEENT: Denies blurred vision, sore throat CV: Denies chest pain RESP: Denies shortness of air, cough GI: Per HPI : Denies hematuria, dysuria ENDO: Denies weight changes NEURO: Denies confusion, dizziness MSK: +weakness SKIN: Denies jaundice, pruritus Vitals: Vitals: Vital Signs Date Time Temp Pulse Resp B/P (MAP) Pulse Ox O2 Delivery O2 Flow Rate FiO2 11/29/16 11:00 98.2 70 17 127/48 (74) 97 Room Air 98.2 Labs: Labs: Please see EMR. Allergies: Coded Allergies: No Known Drug Allergies (Unverified , 11/27/16) Medications: Current Medications Medications (Trade) Dose Ordered Sig/Georgina Route PRN Reason Start Time Stop Time Status Last Admin Dose Admin Levothyroxine Sodium (Synthroid) 75 mcg DAILY07 PO 11/29/16 07:00 11/29/16 06:01 Scopolamine (Transderm-Scop) 1 patch Q72H TD 11/28/16 20:15 11/28/16 22:34 Imaging: Imaging: Videoswallow 11/28/16 IMPRESSION: Modest amount of residual in the vallecula. With repetitive swallowing some of this material was positioned in the area of the anterior commissure and subsequently aspirated. Dobbhoff feeding tube with its tip in the midesophagus. RAIL TRANSPORTATION OPERATOR Preliminary Videoswallow Eval Report: Pt demo'd silent aspiration w/ thin liquid and is at high risk for aspiration on all other consistencies, due to inconsistent large residues w/o spontaneous dry swallow to clear. Oral mastication & A-P transport is discoordinated and resulted in piecemeal deglutition and/or mod-large amounts of oral residues which eventually spill to level of pyriform or valleculae but remain there until next bolus is swallowed. This residue contributed to aspiration during the swallow of the subsequent bolus. Swallow function is variable within trials of the same consistency, which means no safe PO consistency is identified. Decreased sensation, inconsistent delayed initiation of pharyngeal swallow, and oral discoordination are primary contributors to dysphagia and aspiration, all c/w brainstem CVA. Impressions: Neurogenic dysphagia w/ silent aspiration, consistent with brainstem CVA. Recommendations: NPO with frequent oral care. Estimate minimum of 2-4 weeks of non-oral nutrition before return to safe PO intake. Will continue RAIL TRANSPORTATION OPERATOR f/u to address dysphagia. KUB 11/28/16 Impression: There is an enteric tube in place which appears to have its tip in the gastric fundus, but is obscured by barium. PE: GEN: NAD HEENT: Atraumatic, PERRL LUNGS: CTAB HEART: RRR ABD: NABS, S/ND/NT EXTREMITY: No edema SKIN: No rashes, no jaundice NEURO/PSYCH: A & O 3 A/P: A/P: Neurogenic dysphagia -estimated 2-4 week need for non-oral nutrition CRC screen -no previous colonoscopy -- Discussed PEG procedure and associated risks w/ pt and . PEG would need to stay in place x 4-6 weeks after placement. Will review timing of PEG w/ Dr. Vazquez. EDMOND RODRIGUEZ Nov 29, 2016 14:41
[2016-11-29 15:00] VITALS: BP 137/49
[2016-11-29] MEDS: ENOXAPARIN 30 MG/0.3 ML SYRINGE. SQ SCH (18:17)
[2016-11-29 18:41] VITALS: BP 149/54
--- NOTE | 2016-11-29 20:37 | RAD ---
Single view abdomen dated 11/29/2016. No comparison available. CLINICAL INDICATION: Feeding tube placement. FINDINGS: Single supine view of the abdomen show feeding tube tip projected just beyond the level the GE junction, extending to the gastric cardia. There is contrast material throughout the colon. No small bowel dilation. IMPRESSION: Feeding tube tip extends to the level the gastric cardia. Electronically signed by: Jesús eLvy MD (11/29/2016 8:34 PM) [facility]
[2016-11-29] MEDS: MIRTAZAPINE 7.5 MG TABLET. PO SCH (21:11)
[2016-11-29] MEDS: ATORVASTATIN CALCIUM 10 MG TABLET. PO SCH (21:12)
[2016-11-29 23:28] VITALS: BP 125/49
[2016-11-30 03:20] VITALS: BP 155/74
[2016-11-30] MEDS: LEVOTHYROXINE 75 MCG TABLET PO SCH (06:14)
[2016-11-30 07:00] VITALS: BP 137/56
[2016-11-30 07:29] LABS: % SAT IRON 29 % (15-34); IRON,SERUM 53 ug/dL (50-170)
[2016-11-30] MEDS: ASPIRIN 325 MG TABLET PO SCH (08:41)
[2016-11-30] MEDS: ALLOPURINOL 100 MG TABLET. PO SCH (08:42)
[2016-11-30] MEDS: LABETALOL HCL 200 MG TABLET PO SCH ×2 (08:43→21:27)
[2016-11-30] MEDS: DOCUSATE SODIUM 100 MG CAPSULE. PO SCH ×2 (08:44→21:00)
[2016-11-30] MEDS: amLODIPine BESYLATE 10 MG TABLET PO SCH (08:44)
[2016-11-30 10:19] VITALS: BP 103/61
--- NOTE | 2016-11-30 10:28 | PDOC ---
G I PROGRESS NOTE Subjective No GI complaints. On [place]obb[place] feedings. Physical Exam Lungs clear. RRR Abdomen soft, not tender nor distended. Review of Relevant I have reviewed the following items hallie (where applicable) has been applied. Labs Laboratory Tests Test 11/30/16 06:50 Iron Level 53 ug/dL (50-170) Total Iron Binding Capacity 184 ug/dL (250-450) Iron Saturation 29 % (15-34) Laboratory Tests Test 11/30/16 06:50 Iron Level 53 ug/dL (50-170) Total Iron Binding Capacity 184 ug/dL (250-450) Iron Saturation 29 % (15-34) Microbiology 11/24/16 Urine Culture - Final, Complete 11/24/16 Urine Culture Result 1 (MARION) - Final, Complete 11/24/16 Antimicrobic Susceptibility - Final, Complete Did iron studies as near microcytic and elevated RDW--normal. Medications Current Medications Ondansetron HCl (Zofran) 4 mg PRN Q6HRS PRN IV NAUSEA/VOMITING 1ST CHOICE; Start 11/24/16 at 13:30 Prochlorperazine Edisylate (Compazine) 10 mg PRN Q6HRS PRN IV NAUSEA/VOMITING; Start 11/24/16 at 13:30 Prochlorperazine (Compazine) 25 mg PRN Q12HR PRN [place] NAUSEA/VOMITING; Start 12/31 at 13:30 Morphine Sulfate 1 mg PRN Q2HR PRN IV PAIN; Start 11/24/16 at 13:30 Acetaminophen/ Hydrocodone Bitart (Lortab 5/325) 1 tab PRN Q4HRS PRN PO MILD PAIN, 2ND CHOICE; Start 11/24/16 at 13:30 Acetaminophen (Tylenol) 650 mg PRN Q6HRS PRN PO Headaches, Temp > 101.5F; Start 11/24/16 at 13:30 Ibuprofen (Motrin) 400 mg PRN Q6HRS PRN PO MILD PAIN; Start 11/24/16 at 13:30; Status Cancel Docusate Sodium (Colace) 100 mg BID PO Last administered on 11/30/16t 08:44; Start 11/24/16 at 14:00 Magnesium Hydroxide (Milk Of Magnesia) 2,400 mg PRN Q12HR PRN PO CONSTIPATION; Start 11/24/16 at 13:30 Lactulose 20 gm PRN Q12HR PRN PO CONSTIPATION; Start 11/24/16 at 13:30 Bisacodyl (Dulcolax Supp) 10 mg PRN DAILY PRN [place] CONSTIPATION; Start 11/24/16 at 13:30 Enoxaparin Sodium (Lovenox 40mg Syringe) 40 mg DAILY16 SQ Last administered on 11/25/16 15:06; Start 11/24/16 at 16:00; Stop 11/26/16 at 13:47; Status DC Ceftriaxone Sodium 1 gm/ Sodium Chloride 50 ml @ 100 mls/hr Q24H IV Last administered on 11/29/16 14:24; Start 11/24/16 at 14:00 Metronidazole (Flagyl) 500 mg Q8HRS PO Last administered on 11/24/16 15:26; Start 11/24/16 at 14:00; Stop 11/27/16 at 11:18; Status DC Allopurinol (Zyloprim) 100 mg DAILY PO Last administered on 11/30/16 08:42; Start 11/24/16 at 14:00 Amlodipine Besylate (Norvasc) 10 mg DAILY PO Last administered on 11/30/16 08: 44; Start 11/24/16 at 14:00 Furosemide (Lasix) 60 mg DAILY PO Last administered on 11/24/16 15:26; Start 11/24/16 at 14:00; Stop 11/25/16 at 21:04; Status DC Labetalol HCl (Trandate) 200 mg BID PO Last administered on 11/30/16 08:43; Start 11/24/16 at 14:00 Levothyroxine Sodium (Synthroid) 75 mcg DAILY07 PO Last administered on 15:25; Start 11/24/16 at 14:00; Stop 11/27/16 at 11:18; Status DC Mirtazapine (Remeron) 7.5 mg QHS PO Last administered on 11/29/16 21:11; Start 11/24/16 at 21:00 Atorvastatin Calcium (Lipitor) 10 mg QHS PO Last administered on 11/29/16 21: 12; Start 11/24/16 at 21:00 Labetalol HCl (Normodyne) 10 mg PRN Q2HR PRN IVP HYPERTENSION, SEE COMMENTS Last administered on 11/26/16 23:27; Start 11/24/16 at 13:45 Aspirin (Comfort Aspirin) 325 mg DAILYWBKFT PO Last administered on 11/30/16 08: 41; Start 11/24/16 at 13:45 Sodium Chloride 1,000 ml @ 75 mls/hr [id number] IV Last administered on 03:00; Start 11/25/16 at 11:00; Stop 11/28/16 at 09:37; Status DC Regadenoson (Lexiscan) 0.4 mg 1X ONCE IV Last administered on 11/26/16 10:38 ; Start 11/26/16 at 08:30; Stop 11/26/16 at 08:31; Status DC Hydralazine HCl (Apresoline) 10 mg PRN Q4HRS PRN IVP ELEVATED BP, SEE COMMENTS Last administered on 11/28/16 07:54; Start 11/26/16 at 08:45 Enoxaparin Sodium (Lovenox 30mg Syringe) 30 mg DAILY16 SQ Last administered on 11/29/16 18:17; Start 11/26/16 at 16:00 Ondansetron HCl (Zofran) 4 mg PRN Q6HRS PRN IV NAUSEA/VOMITING; Start 11/27/16 at 08:00; Stop 11/27/16 at 18:00; Status DC Fentanyl Citrate (Fentanyl 2ml Vial) 25 mcg PRN Q5MIN PRN IV MILD PAIN; Start 11/27/16 at 08:00; Stop 11/27/16 at 18:00; Status DC Fentanyl Citrate (Fentanyl 2ml Vial) 50 mcg PRN Q5MIN PRN IV MODERATE PAIN; Start 11/27/16 at 08:00; Stop 11/27/16 at 18:00; Status DC Morphine Sulfate 1 mg PRN Q10MIN PRN IV SEVERE PAIN; Start 11/27/16 at 08:00; Stop 11/27/16 at 18:00; Status DC Ringer's Solution 1,000 ml @ 30 mls/hr Q24H IV Last administered on 11/27/16 09:11; Start 11/27/16 at 07:52; Stop 11/27/16 at 19:51; Status DC Lidocaine HCl 2 ml PRN 1X PRN ID PRIOR TO IV START; Start 11/27/16 at 08:00; Stop 11/27/16 at 18:00; Status DC Hydromorphone HCl (Dilaudid) 0.5 mg PRN Q10MIN PRN IV SEV PAIN, Second choice; Start 11/27/16 at 08:00; Stop 11/27/16 at 18:00; Status DC Prochlorperazine Edisylate (Compazine) 5 mg PACU PRN PRN IV NAUSEA, MRX1; Start 11/27/16 at 08:00; Stop 11/27/16 at 18:00; Status DC Levothyroxine Sodium 37.5 mcg/ Sodium Chloride 5 ml @ 100 mls/hr DAILY IVP Last administered on 11/28/16 09:07; Start 11/27/16 at 12:00; Stop 11/28/16 at 11:58; Status DC Clonidine HCl (Catapres Tts-1) 1 patch WEEKLY TD Last administered on 10:09; Start 11/28/16 at 09:45 Enalaprilat (Vasotec) 1.25 mg Q6HRS IV ; Start 11/28/16 at 09:45; Stop 11/28/16 at 11:58; Status DC Levothyroxine Sodium (Synthroid) 75 mcg DAILY07 PO Last administered on 06:14; Start 11/29/16 at 07:00 Barium Sulfate (Varibar Thin Liquid Apple) 148 gm 1X ONCE PO Last administered on 11/28/16 13:09; Start 11/28/16 at 12:15; Stop 11/28/16 at 12:16 ; Status DC Scopolamine (Transderm-Scop) 1 patch Q72H TD Last administered on 11/28/16 22: 34; Start 11/28/16 at 20:15 Active Scripts Active Flagyl (Metronidazole) 500 Mg Tablet 500 Mg PO Q8HRS Reported Lasix (Furosemide) 20 Mg Tablet 3 Tab PO DAILY Simvastatin 20 Mg Tablet 1 Tab PO QHS Mirtazapine 7.5 Mg Tablet 7.5 Mg PO DAILY Allopurinol 100 Mg Tablet 1 Tab PO DAILY Levothyroxine Sodium 75 Mcg Tablet 1 Tab PO DAILY Labetalol Hcl 200 Mg Tablet 200 Mg PO BID Norvasc (Amlodipine Besylate) 10 Mg Tablet 10 Mg PO DAILY Vitals/I & O Vital Sign - Last 24 Hours 11/29/16 11/29/16 11/29/16 11/29/16 11:00 15:00 18:41 20:00 Temp 98.2 98.0 98.5 98.2 98.0 98.5 Pulse 70 72 62 Resp 17 18 17 B/P (MAP) 127/48 (74) 137/49 (78) 149/54 (85) Pulse Ox 97 96 96 O2 Delivery Room Air Room Air Room Air Room Air 11/29/16 11/29/16 11/30/16 11/30/16 21:12 23:28 03:20 07:00 Temp 98.7 99.1 98.8 98.7 99.1 98.8 Pulse 91 68 70 69 Resp 20 20 20 B/P (MAP) 147/65 125/49 (74) 155/74 (101) 137/56 (83) Pulse Ox 93 100 92 O2 Delivery Room Air Room Air Room Air 11/30/16 11/30/16 11/30/16 11/30/16 07:58 08:43 08:44 09:43 Pulse 69 69 B/P (MAP) 137/56 O2 Delivery Room Air Room Air 11/30/16 10:19 Temp 98.8 98.8 Pulse 73 Resp 18 B/P (MAP) 103/61 (75) Pulse Ox 95 O2 Delivery Room Air Intake and Output 11/30/16 11/30/16 12/01/16 15:00 23:00 07:00 Intake Total 440 ml Output Total 0 ml Balance 440 ml Problem List Problems Medical Problems: (1) Acute on chronic congestive heart failure Status: Acute Assessment 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 Plan of Care Note Anticipate PEG Friday. Checking PT/INR as on antibiotic which could prolong. RADHA MURRIETA MD Nov 30, 2016 10:28
[2016-11-30 11:00] LABS: INR 1.1 (0.8-1.1); PROTHROMBIN TIME PATIENT 13.1 SEC (11.7-14.0)
--- NOTE | 2016-11-30 12:57 | PDOC ---
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 Recent trichomoniasis Hx CHF, echo 10/31 HTN, uncontrolled Microcytic anemia Thierno Creat 1.6, unknown if CKD Carotid atherosclerosis Persistent dysphagia History of Present Illness History of Present Illness Pt laying in bed. Discussed tx plan and awaiting PEG Vitals Vitals Vital Signs Date Time Temp Pulse Resp B/P (MAP) Pulse Ox O2 Delivery O2 Flow Rate FiO2 11/30/16 10:19 98.8 73 18 103/61 (75) 95 Room Air 98.8 Physical Exam General: Alert, Oriented X3, Cooperative, No acute distress Lungs: Clear Abdomen: Normal bowel sounds, Soft, No tenderness, No hepatosplenomegaly, No masses Extremities: No clubbing, No cyanosis, No edema, Normal pulses, No tenderness/ swelling Skin: No rashes, No breakdown, No significant lesion Labs LABS Laboratory Tests Test 11/30/16 06:50 11/30/16 10:35 Iron Level 53 ug/dL (50-170) Total Iron Binding Capacity 184 ug/dL (250-450) Iron Saturation 29 % (15-34) Prothrombin Time 13.1 SEC (11.7-14.0) Prothromb Time International Ratio 1.1 (0.8-1.1) Review of Systems Review of Systems c/o weakness c/o fatigue Assessment and Plan Assessmemt and Plan 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 Recent trichomoniasis Hx CHF, echo 10/31 HTN, uncontrolled Microcytic anemia [place] Creat 1.6, unknown if CKD Carotid atherosclerosis Persistent dysphagia Plan Await PEG Continue NG feedings PTOT Possible d/c to SNU on Friday BMP in AM CBC in AM Problems: Comment Review of Relevant I have reviewed the following items hallie (where applicable) has been applied. Labs Laboratory Tests Test 11/30/16 06:50 11/30/16 10:35 Iron Level 53 ug/dL (50-170) Total Iron Binding Capacity 184 ug/dL (250-450) Iron Saturation 29 % (15-34) Prothrombin Time 13.1 SEC (11.7-14.0) Prothromb Time International Ratio 1.1 (0.8-1.1) Laboratory Tests Test 11/30/16 06:50 11/30/16 10:35 Iron Level 53 ug/dL (50-170) Total Iron Binding Capacity 184 ug/dL (250-450) Iron Saturation 29 % (15-34) Prothrombin Time 13.1 SEC (11.7-14.0) Prothromb Time International Ratio 1.1 (0.8-1.1) Microbiology 11/24/16 Urine Culture - Final, Complete 11/24/16 Urine Culture Result 1 (MARION) - Final, Complete 11/24/16 Antimicrobic Susceptibility - Final, Complete Medications Current Medications Ondansetron HCl (Zofran) 4 mg PRN Q6HRS PRN IV NAUSEA/VOMITING 1ST CHOICE; Start 11/24/16 at 13:30 Prochlorperazine Edisylate (Compazine) 10 mg PRN Q6HRS PRN IV NAUSEA/VOMITING, 2ND CHOICE; Start 11/24/16 at 13:30 Prochlorperazine (Compazine) 25 mg PRN Q12HR PRN [place] NAUSEA/VOMITING; Start 12/31 at 13:30 Morphine Sulfate 1 mg PRN Q2HR PRN IV PAIN; Start 11/24/16 at 13:30 Acetaminophen/ Hydrocodone Bitart (Lortab 5/325) 1 tab PRN Q4HRS PRN PO MILD PAIN, 2ND CHOICE; Start 11/24/16 at 13:30 Acetaminophen (Tylenol) 650 mg PRN Q6HRS PRN PO Headaches, Temp > 101.5F; Start 11/24/16 at 13:30 Ibuprofen (Motrin) 400 mg PRN Q6HRS PRN PO MILD PAIN; Start 11/24/16 at 13:30; Status Cancel Docusate Sodium (Colace) 100 mg BID PO Last administered on 11/30/16t 08:44; Start 11/24/16 at 14:00 Magnesium Hydroxide (Milk Of Magnesia) 2,400 mg PRN Q12HR PRN PO CONSTIPATION; Start 11/24/16 at 13:30 Lactulose 20 gm PRN Q12HR PRN PO CONSTIPATION; Start 11/24/16 at 13:30 Bisacodyl (Dulcolax Supp) 10 mg PRN DAILY PRN [place] CONSTIPATION; Start 11/24/16 at 13:30 Enoxaparin Sodium (Lovenox 40mg Syringe) 40 mg DAILY16 SQ Last administered on 11/25/16t 15:06; Start 11/24/16 at 16:00; Stop 11/26/16 at 13:47; Status DC Ceftriaxone Sodium 1 gm/ Sodium Chloride 50 ml @ 100 mls/hr Q24H IV Last administered on 11/29/16 14:24; Start 11/24/16 at 14:00 Metronidazole (Flagyl) 500 mg Q8HRS PO Last administered on 11/24/16 15:26; Start 11/24/16 at 14:00; Stop 11/27/16 at 11:18; Status DC Allopurinol (Zyloprim) 100 mg DAILY PO Last administered on 11/30/16 08:42; Start 11/24/16 at 14:00 Amlodipine Besylate (Norvasc) 10 mg DAILY PO Last administered on 11/30/16 08: 44; Start 11/24/16 at 14:00 Furosemide (Lasix) 60 mg DAILY PO Last administered on 11/24/16 15:26; Start 11/24/16 at 14:00; Stop 11/25/16 at 21:04; Status DC Labetalol HCl (Trandate) 200 mg BID PO Last administered on 11/30/16 08:43; Start 11/24/16 at 14:00 Levothyroxine Sodium (Synthroid) 75 mcg DAILY07 PO Last administered on 15:25; Start 11/24/16 at 14:00; Stop 11/27/16 at 11:18; Status DC Mirtazapine (Remeron) 7.5 mg QHS PO Last administered on 11/29/16 21:11; Start 11/24/16 at 21:00 Atorvastatin Calcium (Lipitor) 10 mg QHS PO Last administered on 11/29/16 21: 12; Start 11/24/16 at 21:00 Labetalol HCl (Normodyne) 10 mg PRN Q2HR PRN IVP HYPERTENSION, SEE COMMENTS Last administered on 11/26/16 23:27; Start 11/24/16 at 13:45 Aspirin (Comfort Aspirin) 325 mg DAILYWBKFT PO Last administered on 11/30/16 08: 41; Start 11/24/16 at 13:45 Sodium Chloride 1,000 ml @ 75 mls/hr [id number] IV Last administered on 03:00; Start 11/25/16 at 11:00; Stop 11/28/16 at 09:37; Status DC Regadenoson (Lexiscan) 0.4 mg 1X ONCE IV Last administered on 11/26/16 10:38 ; Start 11/26/16 at 08:30; Stop 11/26/16 at 08:31; Status DC Hydralazine HCl (Apresoline) 10 mg PRN Q4HRS PRN IVP ELEVATED BP, SEE COMMENTS Last administered on 11/28/16 07:54; Start 11/26/16 at 08:45 Enoxaparin Sodium (Lovenox 30mg Syringe) 30 mg DAILY16 SQ Last administered on 11/29/16 18:17; Start 11/26/16 at 16:00 Ondansetron HCl (Zofran) 4 mg PRN Q6HRS PRN IV NAUSEA/VOMITING; Start 11/27/16 at 08:00; Stop 11/27/16 at 18:00; Status DC Fentanyl Citrate (Fentanyl 2ml Vial) 25 mcg PRN Q5MIN PRN IV MILD PAIN; Start 11/27/16 at 08:00; Stop 11/27/16 at 18:00; Status DC Fentanyl Citrate (Fentanyl 2ml Vial) 50 mcg PRN Q5MIN PRN IV MODERATE PAIN; Start 11/27/16 at 08:00; Stop 11/27/16 at 18:00; Status DC Morphine Sulfate 1 mg PRN Q10MIN PRN IV SEVERE PAIN; Start 11/27/16 at 08:00; Stop 11/27/16 at 18:00; Status DC Ringer's Solution 1,000 ml @ 30 mls/hr Q24H IV Last administered on 11/27/16 09:11; Start 11/27/16 at 07:52; Stop 11/27/16 at 19:51; Status DC Lidocaine HCl 2 ml PRN 1X PRN ID PRIOR TO IV START; Start 11/27/16 at 08:00; Stop 11/27/16 at 18:00; Status DC Hydromorphone HCl (Dilaudid) 0.5 mg PRN Q10MIN PRN IV SEV PAIN, Second choice; Start 11/27/16 at 08:00; Stop 11/27/16 at 18:00; Status DC Prochlorperazine Edisylate (Compazine) 5 mg PACU PRN PRN IV NAUSEA, MRX1; Start 11/27/16 at 08:00; Stop 11/27/16 at 18:00; Status DC Levothyroxine Sodium 37.5 mcg/ Sodium Chloride 5 ml @ 100 mls/hr DAILY IVP Last administered on 11/28/16 09:07; Start 11/27/16 at 12:00; Stop 11/28/16 at 11:58; Status DC Clonidine HCl (Catapres Tts-1) 1 patch WEEKLY TD Last administered on 10:09; Start 11/28/16 at 09:45 Enalaprilat (Vasotec) 1.25 mg Q6HRS IV ; Start 11/28/16 at 09:45; Stop 11/28/16 at 11:58; Status DC Levothyroxine Sodium (Synthroid) 75 mcg DAILY07 PO Last administered on 06:14; Start 11/29/16 at 07:00 Barium Sulfate (Varibar Thin Liquid Apple) 148 gm 1X ONCE PO Last administered on 11/28/16 13:09; Start 11/28/16 at 12:15; Stop 11/28/16 at 12:16 ; Status DC Scopolamine (Transderm-Scop) 1 patch Q72H TD Last administered on 11/28/16 22: 34; Start 11/28/16 at 20:15 Active Scripts Active Flagyl (Metronidazole) 500 Mg Tablet 500 Mg PO Q8HRS Reported Lasix (Furosemide) 20 Mg Tablet 3 Tab PO DAILY Simvastatin 20 Mg Tablet 1 Tab PO QHS Mirtazapine 7.5 Mg Tablet 7.5 Mg PO DAILY Allopurinol 100 Mg Tablet 1 Tab PO DAILY Levothyroxine Sodium 75 Mcg Tablet 1 Tab PO DAILY Labetalol Hcl 200 Mg Tablet 200 Mg PO BID Norvasc (Amlodipine Besylate) 10 Mg Tablet 10 Mg PO DAILY Vitals/I & O Vital Sign - Last 24 Hours 11/29/16 11/29/16 11/29/16 11/29/16 15:00 18:41 20:00 21:12 Temp 98.0 98.5 98.0 98.5 Pulse 72 62 91 Resp 18 17 B/P (MAP) 137/49 (78) 149/54 (85) 147/65 Pulse Ox 96 96 O2 Delivery Room Air Room Air Room Air 11/29/16 11/30/16 11/30/16 11/30/16 23:28 03:20 07:00 07:58 Temp 98.7 99.1 98.8 98.7 99.1 98.8 Pulse 68 70 69 Resp 20 20 20 B/P (MAP) 125/49 (74) 155/74 (101) 137/56 (83) Pulse Ox 93 100 92 O2 Delivery Room Air Room Air Room Air Room Air 11/30/16 11/30/16 11/30/16 11/30/16 08:43 08:44 09:43 10:19 Temp 98.8 98.8 Pulse 69 69 73 Resp 18 B/P (MAP) 137/56 103/61 (75) Pulse Ox 95 O2 Delivery Room Air Room Air Intake and Output 11/30/16 11/30/16 12/01/16 15:00 23:00 07:00 Intake Total 440 ml Output Total 0 ml Balance 440 ml BRADLY TILLEY III DO Nov 30, 2016 12:57
[2016-11-30] MEDS: ENOXAPARIN 30 MG/0.3 ML SYRINGE. SQ SCH (14:18)
[2016-11-30 15:02] VITALS: BP 130/53
[2016-11-30 19:00] VITALS: BP 118/51
[2016-11-30] MEDS: MIRTAZAPINE 7.5 MG TABLET. PO SCH (21:27)
[2016-11-30] MEDS: ATORVASTATIN CALCIUM 10 MG TABLET. PO SCH (21:27)
[2016-11-30 23:00] VITALS: BP 110/55
[2016-12-01 03:00] VITALS: BP 118/62
[2016-12-01 05:30] LABS: BASO % 1 % (0-3); EOS % 4 % (0-3); HEMATOCRIT 28.5 % (36.0-47.0); HEMOGLOBIN 9.2 g/dL (12.0-15.5); LYMPH % 30 % (24-48); MEAN CORPUSCULAR HEMOGLOBIN 23 pg (25-35); MEAN CORPUSCULAR HGB CONC 32 g/dL (31-37); MEAN CORPUSCULAR VOLUME 70 fL (79-100); MONO % 7 % (0-9); NEUT % 58 % (31-73); PLATELET COUNT 212 x10^3/uL (140-400); RED BLOOD COUNT 4.06 x10^6/uL (3.50-5.40); RED CELL DISTRIBUTION WIDTH 16.4 % (11.5-14.5); WHITE BLOOD COUNT 6.6 x10^3/uL (4.0-11.0)
[2016-12-01 05:48] LABS: CALCIUM 8.6 mg/dL (8.5-10.1); CREATININE 1.5 mg/dL (0.6-1.0); GFR 40.5; POTASSIUM 4.8 mmol/L (3.5-5.1)
[2016-12-01] MEDS: LEVOTHYROXINE 75 MCG TABLET PO SCH (06:19)
[2016-12-01 07:54] VITALS: BP 141/52
[2016-12-01] MEDS: DOCUSATE SODIUM 100 MG CAPSULE. PO SCH ×2 (08:59→21:00)
[2016-12-01] MEDS: LACTULOSE 20 GM/30 ML SOLUTION. PO PRN (08:59)
[2016-12-01] MEDS: ALLOPURINOL 100 MG TABLET. PO SCH (08:59)
[2016-12-01] MEDS: ASPIRIN 325 MG TABLET PO SCH (08:59)
[2016-12-01] MEDS: amLODIPine BESYLATE 10 MG TABLET PO SCH (08:59)
[2016-12-01] MEDS: LABETALOL HCL 200 MG TABLET PO SCH ×2 (09:00→21:00)
--- NOTE | 2016-12-01 09:37 | PDOC ---
G I PROGRESS NOTE Subjective Awake, alert, no complaints. Objective Having issues with [place]obbhoff plugging. Physical Exam Lungs clear. RRR Abdomen soft, not tender nor distended. Review of Relevant I have reviewed the following items hallie (where applicable) has been applied. Labs Laboratory Tests Test 11/30/16 06:50 11/30/16 10:35 12/01/16 04:00 Iron Level 53 ug/dL (50-170) Total Iron Binding Capacity 184 ug/dL (250-450) Iron Saturation 29 % (15-34) Prothrombin Time 13.1 SEC (11.7-14.0) Prothromb Time International Ratio 1.1 (0.8-1.1) White Blood Count 6.6 x10^3/uL (4.0-11.0) Red Blood Count 4.06 x10^6/uL (3.50-5.40) Hemoglobin 9.2 g/dL (12.0-15.5) Hematocrit 28.5 % (36.0-47.0) Mean Corpuscular Volume 70 fL (79-100) Mean Corpuscular Hemoglobin 23 pg (25-35) Mean Corpuscular Hemoglobin Concent 32 g/dL (31-37) Red Cell Distribution Width 16.4 % (11.5-14.5) Platelet Count 212 x10^3/uL (140-400) Neutrophils (%) (Auto) 58 % (31-73) Lymphocytes (%) (Auto) 30 % (24-48) Monocytes (%) (Auto) 7 % (0-9) Eosinophils (%) (Auto) 4 % (0-3) Basophils (%) (Auto) 1 % (0-3) Neutrophils # (Auto) 3.9 x10^3uL (1.8-7.7) Lymphocytes # (Auto) 2.0 x10^3/uL (1.0-4.8) Monocytes # (Auto) 0.5 x10^3/uL (0.0-1.1) Eosinophils # (Auto) 0.3 x10^3/uL (0.0-0.7) Basophils # (Auto) 0.0 x10^3/uL (0.0-0.2) Sodium Level 138 mmol/L (136-145) Potassium Level 4.8 mmol/L (3.5-5.1) Chloride Level 105 mmol/L (98-107) Carbon Dioxide Level 25 mmol/L (21-32) Anion Gap 8 (6-14) Blood Urea Nitrogen 32 mg/dL (7-20) Creatinine 1.5 mg/dL (0.6-1.0) Estimated GFR (Cockcroft-Gault) 40.5 Glucose Level 100 mg/dL (70-99) Calcium Level 8.6 mg/dL (8.5-10.1) Laboratory Tests Test 11/30/16 10:35 12/01/16 04:00 Prothrombin Time 13.1 SEC (11.7-14.0) Prothromb Time International Ratio 1.1 (0.8-1.1) White Blood Count 6.6 x10^3/uL (4.0-11.0) Red Blood Count 4.06 x10^6/uL (3.50-5.40) Hemoglobin 9.2 g/dL (12.0-15.5) Hematocrit 28.5 % (36.0-47.0) Mean Corpuscular Volume 70 fL (79-100) Mean Corpuscular Hemoglobin 23 pg (25-35) Mean Corpuscular Hemoglobin Concent 32 g/dL (31-37) Red Cell Distribution Width 16.4 % (11.5-14.5) Platelet Count 212 x10^3/uL (140-400) Neutrophils (%) (Auto) 58 % (31-73) Lymphocytes (%) (Auto) 30 % (24-48) Monocytes (%) (Auto) 7 % (0-9) Eosinophils (%) (Auto) 4 % (0-3) Basophils (%) (Auto) 1 % (0-3) Neutrophils # (Auto) 3.9 x10^3uL (1.8-7.7) Lymphocytes # (Auto) 2.0 x10^3/uL (1.0-4.8) Monocytes # (Auto) 0.5 x10^3/uL (0.0-1.1) Eosinophils # (Auto) 0.3 x10^3/uL (0.0-0.7) Basophils # (Auto) 0.0 x10^3/uL (0.0-0.2) Sodium Level 138 mmol/L (136-145) Potassium Level 4.8 mmol/L (3.5-5.1) Chloride Level 105 mmol/L (98-107) Carbon Dioxide Level 25 mmol/L (21-32) Anion Gap 8 (6-14) Blood Urea Nitrogen 32 mg/dL (7-20) Creatinine 1.5 mg/dL (0.6-1.0) Estimated GFR (Cockcroft-Gault) 40.5 Glucose Level 100 mg/dL (70-99) Calcium Level 8.6 mg/dL (8.5-10.1) Microbiology 11/24/16 Urine Culture - Final, Complete 11/24/16 Urine Culture Result 1 (MARION) - Final, Complete 11/24/16 Antimicrobic Susceptibility - Final, Complete Medications Current Medications Ondansetron HCl (Zofran) 4 mg PRN Q6HRS PRN IV NAUSEA/VOMITING 1ST CHOICE; Start 11/24/16 at 13:30 Prochlorperazine Edisylate (Compazine) 10 mg PRN Q6HRS PRN IV NAUSEA/VOMITING, 2ND CHOICE; Start 11/24/16 at 13:30 Prochlorperazine (Compazine) 25 mg PRN Q12HR PRN [place] NAUSEA/VOMITING; Start 12/31 at 13:30 Morphine Sulfate 1 mg PRN Q2HR PRN IV PAIN; Start 11/24/16 at 13:30 Acetaminophen/ Hydrocodone Bitart (Lortab 5/325) 1 tab PRN Q4HRS PRN PO MILD PAIN, 2ND CHOICE; Start 11/24/16 at 13:30 Acetaminophen (Tylenol) 650 mg PRN Q6HRS PRN PO Headaches, Temp > 101.5F; Start 11/24/16 at 13:30 Ibuprofen (Motrin) 400 mg PRN Q6HRS PRN PO MILD PAIN; Start 11/24/16 at 13:30; Status Cancel Docusate Sodium (Colace) 100 mg BID PO Last administered on 12/01/16 08:59; Start 11/24/16 at 14:00 Magnesium Hydroxide (Milk Of Magnesia) 2,400 mg PRN Q12HR PRN PO CONSTIPATION; Start 11/24/16 at 13:30 Lactulose 20 gm PRN Q12HR PRN PO CONSTIPATION Last administered on 12/01/16 08 :59; Start 11/24/16 at 13:30 Bisacodyl (Dulcolax Supp) 10 mg PRN DAILY PRN [place] CONSTIPATION; Start 11/24/16 at 13:30 Enoxaparin Sodium (Lovenox 40mg Syringe) 40 mg DAILY16 SQ Last administered on 11/25/16 15:06; Start 11/24/16 at 16:00; Stop 11/26/16 at 13:47; Status DC Ceftriaxone Sodium 1 gm/ Sodium Chloride 50 ml @ 100 mls/hr Q24H IV Last administered on 11/30/16 14:18; Start 11/24/16 at 14:00 Metronidazole (Flagyl) 500 mg Q8HRS PO Last administered on 11/24/16 15:26; Start 11/24/16 at 14:00; Stop 11/27/16 at 11:18; Status DC Allopurinol (Zyloprim) 100 mg DAILY PO Last administered on 12/01/16 08:59; Start 11/24/16 at 14:00 Amlodipine Besylate (Norvasc) 10 mg DAILY PO Last administered on 12/01/16 08: 59; Start 11/24/16 at 14:00 Furosemide (Lasix) 60 mg DAILY PO Last administered on 11/24/16 15:26; Start 11/24/16 at 14:00; Stop 11/25/16 at 21:04; Status DC Labetalol HCl (Trandate) 200 mg BID PO Last administered on 11/30/16 21:27; Start 11/24/16 at 14:00 Levothyroxine Sodium (Synthroid) 75 mcg DAILY07 PO Last administered on 15:25; Start 11/24/16 at 14:00; Stop 11/27/16 at 11:18; Status DC Mirtazapine (Remeron) 7.5 mg QHS PO Last administered on 11/30/16 21:27; Start 11/24/16 at 21:00 Atorvastatin Calcium (Lipitor) 10 mg QHS PO Last administered on 11/30/16 21: 27; Start 11/24/16 at 21:00 Labetalol HCl (Normodyne) 10 mg PRN Q2HR PRN IVP HYPERTENSION, SEE COMMENTS Last administered on 11/26/16 23:27; Start 11/24/16 at 13:45 Aspirin (Comfort Aspirin) 325 mg DAILYWBKFT PO Last administered on 12/01/16 08: 59; Start 11/24/16 at 13:45 Sodium Chloride 1,000 ml @ 75 mls/hr [id number] IV Last administered on 03:00; Start 11/25/16 at 11:00; Stop 11/28/16 at 09:37; Status DC Regadenoson (Lexiscan) 0.4 mg 1X ONCE IV Last administered on 11/26/16 10:38 ; Start 11/26/16 at 08:30; Stop 11/26/16 at 08:31; Status DC Hydralazine HCl (Apresoline) 10 mg PRN Q4HRS PRN IVP ELEVATED BP, SEE COMMENTS Last administered on 11/28/16 07:54; Start 11/26/16 at 08:45 Enoxaparin Sodium (Lovenox 30mg Syringe) 30 mg DAILY16 SQ Last administered on 11/30/16 14:18; Start 11/26/16 at 16:00 Ondansetron HCl (Zofran) 4 mg PRN Q6HRS PRN IV NAUSEA/VOMITING; Start 11/27/16 at 08:00; Stop 11/27/16 at 18:00; Status DC Fentanyl Citrate (Fentanyl 2ml Vial) 25 mcg PRN Q5MIN PRN IV MILD PAIN; Start 11/27/16 at 08:00; Stop 11/27/16 at 18:00; Status DC Fentanyl Citrate (Fentanyl 2ml Vial) 50 mcg PRN Q5MIN PRN IV MODERATE PAIN; Start 11/27/16 at 08:00; Stop 11/27/16 at 18:00; Status DC Morphine Sulfate 1 mg PRN Q10MIN PRN IV SEVERE PAIN; Start 11/27/16 at 08:00; Stop 11/27/16 at 18:00; Status DC Ringer's Solution 1,000 ml @ 30 mls/hr Q24H IV Last administered on 11/27/16 09:11; Start 11/27/16 at 07:52; Stop 11/27/16 at 19:51; Status DC Lidocaine HCl 2 ml PRN 1X PRN ID PRIOR TO IV START; Start 11/27/16 at 08:00; Stop 11/27/16 at 18:00; Status DC Hydromorphone HCl (Dilaudid) 0.5 mg PRN Q10MIN PRN IV SEV PAIN, Second choice; Start 11/27/16 at 08:00; Stop 11/27/16 at 18:00; Status DC Prochlorperazine Edisylate (Compazine) 5 mg PACU PRN PRN IV NAUSEA, MRX1; Start 11/27/16 at 08:00; Stop 11/27/16 at 18:00; Status DC Levothyroxine Sodium 37.5 mcg/ Sodium Chloride 5 ml @ 100 mls/hr DAILY IVP Last administered on 11/28/16 09:07; Start 11/27/16 at 12:00; Stop 11/28/16 at 11:58; Status DC Clonidine HCl (Catapres Tts-1) 1 patch WEEKLY TD Last administered on 10:09; Start 11/28/16 at 09:45 Enalaprilat (Vasotec) 1.25 mg Q6HRS IV ; Start 11/28/16 at 09:45; Stop 11/28/16 at 11:58; Status DC Levothyroxine Sodium (Synthroid) 75 mcg DAILY07 PO Last administered on 06:19; Start 11/29/16 at 07:00 Barium Sulfate (Varibar Thin Liquid Apple) 148 gm 1X ONCE PO Last administered on 11/28/16 13:09; Start 11/28/16 at 12:15; Stop 11/28/16 at 12:16 ; Status DC Scopolamine (Transderm-Scop) 1 patch Q72H TD Last administered on 11/28/16 22: 34; Start 11/28/16 at 20:15 Active Scripts Active Flagyl (Metronidazole) 500 Mg Tablet 500 Mg PO Q8HRS Reported Lasix (Furosemide) 20 Mg Tablet 3 Tab PO DAILY Simvastatin 20 Mg Tablet 1 Tab PO QHS Mirtazapine 7.5 Mg Tablet 7.5 Mg PO DAILY Allopurinol 100 Mg Tablet 1 Tab PO DAILY Levothyroxine Sodium 75 Mcg Tablet 1 Tab PO DAILY Labetalol Hcl 200 Mg Tablet 200 Mg PO BID Norvasc (Amlodipine Besylate) 10 Mg Tablet 10 Mg PO DAILY Vitals/I & O Vital Sign - Last 24 Hours 11/30/16 11/30/16 11/30/16 11/30/16 09:43 10:19 15:02 19:00 Temp 98.8 98.7 98.0 98.8 98.7 98.0 Pulse 73 66 70 Resp 18 18 20 B/P (MAP) 103/61 (75) 130/53 (78) 118/51 (73) Pulse Ox 95 93 97 O2 Delivery Room Air Room Air Room Air Room Air 11/30/16 11/30/16 11/30/16 12/01/16 20:00 21:27 23:00 03:00 Temp 98.4 98.0 98.4 98.0 Pulse 70 63 54 Resp 15 20 B/P (MAP) 118/51 110/55 (73) 118/62 (80) Pulse Ox 96 96 O2 Delivery Room Air Room Air Room Air 12/01/16 12/01/16 07:54 08:59 Temp 99.7 99.7 Pulse 72 72 Resp 18 B/P (MAP) 141/52 (81) 141/52 Pulse Ox 95 O2 Delivery Room Air Problem List Problems Medical Problems: (1) Acute on chronic congestive heart failure Status: Acute Assessment Neurogenic dysphagia. Plan of Care: Continue current Tx, Mgmt Plan of Care Note PEG tomorrow; probably will be nearer [phone] before lab free. RADHA MURRIETA MD Dec 01, 2016 09:37
[2016-12-01 10:55] VITALS: BP 145/53
[2016-12-01 14:55] VITALS: BP 137/53
--- NOTE | 2016-12-01 15:15 | PDOC ---
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 Recent trichomoniasis Hx CHF, echo 10/31 HTN, uncontrolled Microcytic anemia [place] Creat 1.6, unknown if CKD Carotid atherosclerosis Persistent dysphagia History of Present Illness History of Present Illness Pt laying in bed. Discussed tx plan and awaiting PEG for neurogenic dysphagia, will be placed tomorrow Pt has been on ceftriaxone X7 days for UTI/Bronchitis, will stop antibiotics today Spoke with RN: blood pressure has been elevated, will add metoprolol 5 mg IV q6 Vitals Vitals Vital Signs Date Time Temp Pulse Resp B/P (MAP) Pulse Ox O2 Delivery O2 Flow Rate FiO2 12/01/16 10:55 98.8 66 18 145/53 (83) 98 Room Air 98.8 Physical Exam General: Alert, Oriented X3, Cooperative, No acute distress Heart: Regular rate, Normal S1, Normal S2 Lungs: Clear Abdomen: Normal bowel sounds, Soft, No tenderness, No hepatosplenomegaly, No masses Extremities: No clubbing, No cyanosis, No edema, Normal pulses, No tenderness/ swelling Skin: No rashes, No breakdown, No significant lesion Labs LABS Laboratory Tests Test 12/01/16 04:00 White Blood Count 6.6 x10^3/uL (4.0-11.0) Red Blood Count 4.06 x10^6/uL (3.50-5.40) Hemoglobin 9.2 g/dL (12.0-15.5) Hematocrit 28.5 % (36.0-47.0) Mean Corpuscular Volume 70 fL (79-100) Mean Corpuscular Hemoglobin 23 pg (25-35) Mean Corpuscular Hemoglobin Concent 32 g/dL (31-37) Red Cell Distribution Width 16.4 % (11.5-14.5) Platelet Count 212 x10^3/uL (140-400) Neutrophils (%) (Auto) 58 % (31-73) Lymphocytes (%) (Auto) 30 % (24-48) Monocytes (%) (Auto) 7 % (0-9) Eosinophils (%) (Auto) 4 % (0-3) Basophils (%) (Auto) 1 % (0-3) Neutrophils # (Auto) 3.9 x10^3uL (1.8-7.7) Lymphocytes # (Auto) 2.0 x10^3/uL (1.0-4.8) Monocytes # (Auto) 0.5 x10^3/uL (0.0-1.1) Eosinophils # (Auto) 0.3 x10^3/uL (0.0-0.7) Basophils # (Auto) 0.0 x10^3/uL (0.0-0.2) Sodium Level 138 mmol/L (136-145) Potassium Level 4.8 mmol/L (3.5-5.1) Chloride Level 105 mmol/L (98-107) Carbon Dioxide Level 25 mmol/L (21-32) Anion Gap 8 (6-14) Blood Urea Nitrogen 32 mg/dL (7-20) Creatinine 1.5 mg/dL (0.6-1.0) Estimated GFR (Cockcroft-Gault) 40.5 Glucose Level 100 mg/dL (70-99) Calcium Level 8.6 mg/dL (8.5-10.1) Review of Systems Review of Systems weakness fatigue Assessment and Plan Assessmemt and Plan Problems Medical Problems: (1) Acute on chronic congestive heart failure Status: Acute 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 Recent trichomoniasis Hx CHF, echo 10/31 HTN, uncontrolled Microcytic anemia [place] Creat 1.6, unknown if CKD Carotid atherosclerosis Persistent dysphagia 1. PEG tube placement placed for tomorrow 2. Stop ceftriaxone as per above 3. Will start metoprolol 4. recheck labs in am 5. Continue PT/OT 6. Appreciate subspecialist input Problems: Comment Review of Relevant I have reviewed the following items ahllie (where applicable) has been applied. Labs Laboratory Tests Test 11/30/16 06:50 11/30/16 10:35 12/01/16 04:00 Iron Level 53 ug/dL (50-170) Total Iron Binding Capacity 184 ug/dL (250-450) Iron Saturation 29 % (15-34) Prothrombin Time 13.1 SEC (11.7-14.0) Prothromb Time International Ratio 1.1 (0.8-1.1) White Blood Count 6.6 x10^3/uL (4.0-11.0) Red Blood Count 4.06 x10^6/uL (3.50-5.40) Hemoglobin 9.2 g/dL (12.0-15.5) Hematocrit 28.5 % (36.0-47.0) Mean Corpuscular Volume 70 fL (79-100) Mean Corpuscular Hemoglobin 23 pg (25-35) Mean Corpuscular Hemoglobin Concent 32 g/dL (31-37) Red Cell Distribution Width 16.4 % (11.5-14.5) Platelet Count 212 x10^3/uL (140-400) Neutrophils (%) (Auto) 58 % (31-73) Lymphocytes (%) (Auto) 30 % (24-48) Monocytes (%) (Auto) 7 % (0-9) Eosinophils (%) (Auto) 4 % (0-3) Basophils (%) (Auto) 1 % (0-3) Neutrophils # (Auto) 3.9 x10^3uL (1.8-7.7) Lymphocytes # (Auto) 2.0 x10^3/uL (1.0-4.8) Monocytes # (Auto) 0.5 x10^3/uL (0.0-1.1) Eosinophils # (Auto) 0.3 x10^3/uL (0.0-0.7) Basophils # (Auto) 0.0 x10^3/uL (0.0-0.2) Sodium Level 138 mmol/L (136-145) Potassium Level 4.8 mmol/L (3.5-5.1) Chloride Level 105 mmol/L (98-107) Carbon Dioxide Level 25 mmol/L (21-32) Anion Gap 8 (6-14) Blood Urea Nitrogen 32 mg/dL (7-20) Creatinine 1.5 mg/dL (0.6-1.0) Estimated GFR (Cockcroft-Gault) 40.5 Glucose Level 100 mg/dL (70-99) Calcium Level 8.6 mg/dL (8.5-10.1) Laboratory Tests Test 12/01/16 04:00 White Blood Count 6.6 x10^3/uL (4.0-11.0) Red Blood Count 4.06 x10^6/uL (3.50-5.40) Hemoglobin 9.2 g/dL (12.0-15.5) Hematocrit 28.5 % (36.0-47.0) Mean Corpuscular Volume 70 fL (79-100) Mean Corpuscular Hemoglobin 23 pg (25-35) Mean Corpuscular Hemoglobin Concent 32 g/dL (31-37) Red Cell Distribution Width 16.4 % (11.5-14.5) Platelet Count 212 x10^3/uL (140-400) Neutrophils (%) (Auto) 58 % (31-73) Lymphocytes (%) (Auto) 30 % (24-48) Monocytes (%) (Auto) 7 % (0-9) Eosinophils (%) (Auto) 4 % (0-3) Basophils (%) (Auto) 1 % (0-3) Neutrophils # (Auto) 3.9 x10^3uL (1.8-7.7) Lymphocytes # (Auto) 2.0 x10^3/uL (1.0-4.8) Monocytes # (Auto) 0.5 x10^3/uL (0.0-1.1) Eosinophils # (Auto) 0.3 x10^3/uL (0.0-0.7) Basophils # (Auto) 0.0 x10^3/uL (0.0-0.2) Sodium Level 138 mmol/L (136-145) Potassium Level 4.8 mmol/L (3.5-5.1) Chloride Level 105 mmol/L (98-107) Carbon Dioxide Level 25 mmol/L (21-32) Anion Gap 8 (6-14) Blood Urea Nitrogen 32 mg/dL (7-20) Creatinine 1.5 mg/dL (0.6-1.0) Estimated GFR (Cockcroft-Gault) 40.5 Glucose Level 100 mg/dL (70-99) Calcium Level 8.6 mg/dL (8.5-10.1) Microbiology 11/24/16 Urine Culture - Final, Complete 11/24/16 Urine Culture Result 1 (MARION) - Final, Complete 11/24/16 Antimicrobic Susceptibility - Final, Complete Medications Current Medications Ondansetron HCl (Zofran) 4 mg PRN Q6HRS PRN IV NAUSEA/VOMITING 1ST CHOICE; Start 11/24/16 at 13:30 Prochlorperazine Edisylate (Compazine) 10 mg PRN Q6HRS PRN IV NAUSEA/VOMITING, 2ND CHOICE; Start 11/24/16 at 13:30 Prochlorperazine (Compazine) 25 mg PRN Q12HR PRN [place] NAUSEA/VOMITING; Start 12/31 at 13:30 Morphine Sulfate 1 mg PRN Q2HR PRN IV PAIN; Start 11/24/16 at 13:30 Acetaminophen/ Hydrocodone Bitart (Lortab 5/325) 1 tab PRN Q4HRS PRN PO MILD PAIN, 2ND CHOICE; Start 11/24/16 at 13:30 Acetaminophen (Tylenol) 650 mg PRN Q6HRS PRN PO Headaches, Temp > 101.5F; Start 11/24/16 at 13:30 Ibuprofen (Motrin) 400 mg PRN Q6HRS PRN PO MILD PAIN; Start 11/24/16 at 13:30; Status Cancel Docusate Sodium (Colace) 100 mg BID PO Last administered on 12/01/16 08:59; Start 11/24/16 at 14:00 Magnesium Hydroxide (Milk Of Magnesia) 2,400 mg PRN Q12HR PRN PO CONSTIPATION; Start 11/24/16 at 13:30 Lactulose 20 gm PRN Q12HR PRN PO CONSTIPATION Last administered on 12/01/16 08 :59; Start 11/24/16 at 13:30 Bisacodyl (Dulcolax Supp) 10 mg PRN DAILY PRN [place] CONSTIPATION; Start 11/24/16 at 13:30 Enoxaparin Sodium (Lovenox 40mg Syringe) 40 mg DAILY16 SQ Last administered on 11/25/16 15:06; Start 11/24/16 at 16:00; Stop 11/26/16 at 13:47; Status DC Ceftriaxone Sodium 1 gm/ Sodium Chloride 50 ml @ 100 mls/hr Q24H IV Last administered on 11/30/16 14:18; Start 11/24/16 at 14:00 Metronidazole (Flagyl) 500 mg Q8HRS PO Last administered on 11/24/16 15:26; Start 11/24/16 at 14:00; Stop 11/27/16 at 11:18; Status DC Allopurinol (Zyloprim) 100 mg DAILY PO Last administered on 12/01/16 08:59; Start 11/24/16 at 14:00 Amlodipine Besylate (Norvasc) 10 mg DAILY PO Last administered on 12/01/16 08: 59; Start 11/24/16 at 14:00 Furosemide (Lasix) 60 mg DAILY PO Last administered on 11/24/16 15:26; Start 11/24/16 at 14:00; Stop 11/25/16 at 21:04; Status DC Labetalol HCl (Trandate) 200 mg BID PO Last administered on 11/30/16 21:27; Start 11/24/16 at 14:00 Levothyroxine Sodium (Synthroid) 75 mcg DAILY07 PO Last administered on 15:25; Start 11/24/16 at 14:00; Stop 11/27/16 at 11:18; Status DC Mirtazapine (Remeron) 7.5 mg QHS PO Last administered on 11/30/16 21:27; Start 11/24/16 at 21:00 Atorvastatin Calcium (Lipitor) 10 mg QHS PO Last administered on 11/30/16 21: 27; Start 11/24/16 at 21:00 Labetalol HCl (Normodyne) 10 mg PRN Q2HR PRN IVP HYPERTENSION, SEE COMMENTS Last administered on 11/26/16 23:27; Start 11/24/16 at 13:45 Aspirin (Comfort Aspirin) 325 mg DAILYWBKFT PO Last administered on 12/01/16 08: 59; Start 11/24/16 at 13:45 Sodium Chloride 1,000 ml @ 75 mls/hr [id number] IV Last administered on 03:00; Start 11/25/16 at 11:00; Stop 11/28/16 at 09:37; Status DC Regadenoson (Lexiscan) 0.4 mg 1X ONCE IV Last administered on 11/26/16 10:38 ; Start 11/26/16 at 08:30; Stop 11/26/16 at 08:31; Status DC Hydralazine HCl (Apresoline) 10 mg PRN Q4HRS PRN IVP ELEVATED BP, SEE COMMENTS Last administered on 11/28/16 07:54; Start 11/26/16 at 08:45 Enoxaparin Sodium (Lovenox 30mg Syringe) 30 mg DAILY16 SQ Last administered on 11/30/16 14:18; Start 11/26/16 at 16:00; Stop 12/01/16 at 09:44; Status DC Ondansetron HCl (Zofran) 4 mg PRN Q6HRS PRN IV NAUSEA/VOMITING; Start 11/27/16 at 08:00; Stop 11/27/16 at 18:00; Status DC Fentanyl Citrate (Fentanyl 2ml Vial) 25 mcg PRN Q5MIN PRN IV MILD PAIN; Start 11/27/16 at 08:00; Stop 11/27/16 at 18:00; Status DC Fentanyl Citrate (Fentanyl 2ml Vial) 50 mcg PRN Q5MIN PRN IV MODERATE PAIN; Start 11/27/16 at 08:00; Stop 11/27/16 at 18:00; Status DC Morphine Sulfate 1 mg PRN Q10MIN PRN IV SEVERE PAIN; Start 11/27/16 at 08:00; Stop 11/27/16 at 18:00; Status DC Ringer's Solution 1,000 ml @ 30 mls/hr Q24H IV Last administered on 11/27/16 09:11; Start 11/27/16 at 07:52; Stop 11/27/16 at 19:51; Status DC Lidocaine HCl 2 ml PRN 1X PRN ID PRIOR TO IV START; Start 11/27/16 at 08:00; Stop 11/27/16 at 18:00; Status DC Hydromorphone HCl (Dilaudid) 0.5 mg PRN Q10MIN PRN IV SEV PAIN, Second choice; Start 11/27/16 at 08:00; Stop 11/27/16 at 18:00; Status DC Prochlorperazine Edisylate (Compazine) 5 mg PACU PRN PRN IV NAUSEA, MRX1; Start 11/27/16 at 08:00; Stop 11/27/16 at 18:00; Status DC Levothyroxine Sodium 37.5 mcg/ Sodium Chloride 5 ml @ 100 mls/hr DAILY IVP Last administered on 11/28/16 09:07; Start 11/27/16 at 12:00; Stop 11/28/16 at 11:58; Status DC Clonidine HCl (Catapres Tts-1) 1 patch WEEKLY TD Last administered on 10:09; Start 11/28/16 at 09:45 Enalaprilat (Vasotec) 1.25 mg Q6HRS IV ; Start 11/28/16 at 09:45; Stop 11/28/16 at 11:58; Status DC Levothyroxine Sodium (Synthroid) 75 mcg DAILY07 PO Last administered on 06:19; Start 11/29/16 at 07:00 Barium Sulfate (Varibar Thin Liquid Apple) 148 gm 1X ONCE PO Last administered on 11/28/16 13:09; Start 11/28/16 at 12:15; Stop 11/28/16 at 12:16 ; Status DC Scopolamine (Transderm-Scop) 1 patch Q72H TD Last administered on 11/28/16 22: 34; Start 11/28/16 at 20:15 Active Scripts Active Flagyl (Metronidazole) 500 Mg Tablet 500 Mg PO Q8HRS Reported Lasix (Furosemide) 20 Mg Tablet 3 Tab PO DAILY Simvastatin 20 Mg Tablet 1 Tab PO QHS Mirtazapine 7.5 Mg Tablet 7.5 Mg PO DAILY Allopurinol 100 Mg Tablet 1 Tab PO DAILY Levothyroxine Sodium 75 Mcg Tablet 1 Tab PO DAILY Labetalol Hcl 200 Mg Tablet 200 Mg PO BID Norvasc (Amlodipine Besylate) 10 Mg Tablet 10 Mg PO DAILY Vitals/I & O Vital Sign - Last 24 Hours 11/30/16 11/30/16 11/30/16 11/30/16 19:00 20:00 21:27 23:00 Temp 98.0 98.4 98.0 98.4 Pulse 70 70 63 Resp 20 15 B/P (MAP) 118/51 (73) 118/51 110/55 (73) Pulse Ox 97 96 O2 Delivery Room Air Room Air Room Air 12/01/16 12/01/16 12/01/16 12/01/16 03:00 07:54 08:00 08:59 Temp 98.0 99.7 98.0 99.7 Pulse 54 72 72 Resp 20 18 B/P (MAP) 118/62 (80) 141/52 (81) 141/52 Pulse Ox 96 95 O2 Delivery Room Air Room Air Room Air 12/01/16 10:55 Temp 98.8 98.8 Pulse 66 Resp 18 B/P (MAP) 145/53 (83) Pulse Ox 98 O2 Delivery Room Air Intake and Output 12/01/16 12/01/16 12/02/16 15:00 23:00 07:00 Intake Total 220 ml Balance 220 ml BRADLY TILLEY III, DO Dec 01, 2016 15:15
[2016-12-01] MEDS ORDERED: METOPROLOL TARTRATE 5 MG/5 ML VIAL. IVP SCH (16:00)
[2016-12-01] MEDS ORDERED: 0.9 % SODIUM CHLORIDE 10 ML DISP.SYRIN. IV PRN (16:00)
[2016-12-01] MEDS ORDERED: METOPROLOL TARTRATE 5 MG/5 ML VIAL. IVP PRN (17:45)
[2016-12-01 19:15] VITALS: BP 138/62
[2016-12-01] MEDS: ATORVASTATIN CALCIUM 10 MG TABLET. PO SCH (21:00)
[2016-12-01] MEDS: MIRTAZAPINE 7.5 MG TABLET. PO SCH (21:00)
[2016-12-01] MEDS: SCOPOLAMINE 1.5MG PATCH. TD SCH (21:49)
[2016-12-01 23:05] VITALS: BP 134/55
[2016-12-02 03:10] VITALS: BP 138/59
[2016-12-02 04:58] LABS: BASO % 1 % (0-3); EOS % 5 % (0-3); HEMATOCRIT 29.2 % (36.0-47.0); HEMOGLOBIN 9.4 g/dL (12.0-15.5); LYMPH # 1.9 x10^3/uL (1.0-4.8); LYMPH % 29 % (24-48); MEAN CORPUSCULAR HEMOGLOBIN 23 pg (25-35); MEAN CORPUSCULAR HGB CONC 32 g/dL (31-37); MEAN CORPUSCULAR VOLUME 70 fL (79-100); MONO % 7 % (0-9); NEUT % 59 % (31-73); PLATELET COUNT 237 x10^3/uL (140-400); RED BLOOD COUNT 4.18 x10^6/uL (3.50-5.40); RED CELL DISTRIBUTION WIDTH 16.7 % (11.5-14.5); WHITE BLOOD COUNT 6.7 x10^3/uL (4.0-11.0)
[2016-12-02 05:55] LABS: CALCIUM 8.7 mg/dL (8.5-10.1); CREATININE 1.4 mg/dL (0.6-1.0); GFR 43.9
[2016-12-02] MEDS: LEVOTHYROXINE 75 MCG TABLET PO SCH (06:23)
[2016-12-02 07:30] VITALS: BP 162/76
[2016-12-02] MEDS: ASPIRIN 325 MG TABLET PO SCH (08:00)
[2016-12-02] MEDS: DOCUSATE SODIUM 100 MG CAPSULE. PO SCH ×2 (09:00→21:00)
[2016-12-02] MEDS: ALLOPURINOL 100 MG TABLET. PO SCH (09:00)
[2016-12-02] MEDS: LABETALOL HCL 200 MG TABLET PO SCH ×3 (09:00→21:00)
[2016-12-02] MEDS: amLODIPine BESYLATE 10 MG TABLET PO SCH ×2 (09:00→14:11)
[2016-12-02 10:28] VITALS: BP 162/81
--- NOTE | 2016-12-02 10:40 | PDOC ---
PROGRESS NOTES Assessment Problems Medical Problems: (1) Acute on chronic congestive heart failure Status: Acute Acute 2 cm x 1 cm infarct in right roslyn. Metabolic encephalopathy. 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 Plan Continue ASA 325 mg daily ( She did not take ASA before per her nurse).. Continue Lipitor HS. PEG planned for today ST/OT/PT Subjective No complaints Objective Vital Signs Date Time Temp Pulse Resp B/P (MAP) Pulse Ox O2 Delivery O2 Flow Rate FiO2 12/02/16 10:28 98.7 76 18 162/81 (108) 97 Room Air 98.7 Intake and Output 12/03/16 07:00 # Voids 1 PHYSICAL EXAM Alert. Oriented to time, place and person. PERRL. EOMI. CN: Mild dysarthria, otherwise no focal findings. Muscle tone: normal. Muscle strength: 4/5 DTR: 2+ Plantar reflex: flexor Gait: not examined in bed. Sensory exam: no abnormal findings. Right>left dysmetria Review of Relevant I have reviewed the following items hallie (where applicable) has been applied. Labs Laboratory Tests Test 12/01/16 04:00 12/02/16 04:14 White Blood Count 6.6 x10^3/uL (4.0-11.0) 6.7 x10^3/uL (4.0-11.0) Red Blood Count 4.06 x10^6/uL (3.50-5.40) 4.18 x10^6/uL (3.50-5.40) Hemoglobin 9.2 g/dL (12.0-15.5) 9.4 g/dL (12.0-15.5) Hematocrit 28.5 % (36.0-47.0) 29.2 % (36.0-47.0) Mean Corpuscular Volume 70 fL (79-100) 70 fL (79-100) Mean Corpuscular Hemoglobin 23 pg (25-35) 23 pg (25-35) Mean Corpuscular Hemoglobin Concent 32 g/dL (31-37) 32 g/dL (31-37) Red Cell Distribution Width 16.4 % (11.5-14.5) 16.7 % (11.5-14.5) Platelet Count 212 x10^3/uL (140-400) 237 x10^3/uL (140-400) Neutrophils (%) (Auto) 58 % (31-73) 59 % (31-73) Lymphocytes (%) (Auto) 30 % (24-48) 29 % (24-48) Monocytes (%) (Auto) 7 % (0-9) 7 % (0-9) Eosinophils (%) (Auto) 4 % (0-3) 5 % (0-3) Basophils (%) (Auto) 1 % (0-3) 1 % (0-3) Neutrophils # (Auto) 3.9 x10^3uL (1.8-7.7) 4.0 x10^3uL (1.8-7.7) Lymphocytes # (Auto) 2.0 x10^3/uL (1.0-4.8) 1.9 x10^3/uL (1.0-4.8) Monocytes # (Auto) 0.5 x10^3/uL (0.0-1.1) 0.5 x10^3/uL (0.0-1.1) Eosinophils # (Auto) 0.3 x10^3/uL (0.0-0.7) 0.3 x10^3/uL (0.0-0.7) Basophils # (Auto) 0.0 x10^3/uL (0.0-0.2) 0.0 x10^3/uL (0.0-0.2) Sodium Level 138 mmol/L (136-145) 137 mmol/L (136-145) Potassium Level 4.8 mmol/L (3.5-5.1) 5.0 mmol/L (3.5-5.1) Chloride Level 105 mmol/L (98-107) 105 mmol/L (98-107) Carbon Dioxide Level 25 mmol/L (21-32) 25 mmol/L (21-32) Anion Gap 8 (6-14) 7 (6-14) Blood Urea Nitrogen 32 mg/dL (7-20) 29 mg/dL (7-20) Creatinine 1.5 mg/dL (0.6-1.0) 1.4 mg/dL (0.6-1.0) Estimated GFR (Cockcroft-Gault) 40.5 43.9 Glucose Level 100 mg/dL (70-99) 91 mg/dL (70-99) Calcium Level 8.6 mg/dL (8.5-10.1) 8.7 mg/dL (8.5-10.1) Laboratory Tests Test 12/02/16 04:14 White Blood Count 6.7 x10^3/uL (4.0-11.0) Red Blood Count 4.18 x10^6/uL (3.50-5.40) Hemoglobin 9.4 g/dL (12.0-15.5) Hematocrit 29.2 % (36.0-47.0) Mean Corpuscular Volume 70 fL (79-100) Mean Corpuscular Hemoglobin 23 pg (25-35) Mean Corpuscular Hemoglobin Concent 32 g/dL (31-37) Red Cell Distribution Width 16.7 % (11.5-14.5) Platelet Count 237 x10^3/uL (140-400) Neutrophils (%) (Auto) 59 % (31-73) Lymphocytes (%) (Auto) 29 % (24-48) Monocytes (%) (Auto) 7 % (0-9) Eosinophils (%) (Auto) 5 % (0-3) Basophils (%) (Auto) 1 % (0-3) Neutrophils # (Auto) 4.0 x10^3uL (1.8-7.7) Lymphocytes # (Auto) 1.9 x10^3/uL (1.0-4.8) Monocytes # (Auto) 0.5 x10^3/uL (0.0-1.1) Eosinophils # (Auto) 0.3 x10^3/uL (0.0-0.7) Basophils # (Auto) 0.0 x10^3/uL (0.0-0.2) Sodium Level 137 mmol/L (136-145) Potassium Level 5.0 mmol/L (3.5-5.1) Chloride Level 105 mmol/L (98-107) Carbon Dioxide Level 25 mmol/L (21-32) Anion Gap 7 (6-14) Blood Urea Nitrogen 29 mg/dL (7-20) Creatinine 1.4 mg/dL (0.6-1.0) Estimated GFR (Cockcroft-Gault) 43.9 Glucose Level 91 mg/dL (70-99) Calcium Level 8.7 mg/dL (8.5-10.1) Microbiology 11/24/16 Urine Culture - Final, Complete 11/24/16 Urine Culture Result 1 (MARION) - Final, Complete 11/24/16 Antimicrobic Susceptibility - Final, Complete Medications Current Medications Ondansetron HCl (Zofran) 4 mg PRN Q6HRS PRN IV NAUSEA/VOMITING 1ST CHOICE; Start 11/24/16 at 13:30 Prochlorperazine Edisylate (Compazine) 10 mg PRN Q6HRS PRN IV NAUSEA/VOMITING, 2ND CHOICE; Start 11/24/16 at 13:30 Prochlorperazine (Compazine) 25 mg PRN Q12HR PRN [place] NAUSEA/VOMITING; Start 12/31 at 13:30 Morphine Sulfate 1 mg PRN Q2HR PRN IV PAIN; Start 11/24/16 at 13:30 Acetaminophen/ Hydrocodone Bitart (Lortab 5/325) 1 tab PRN Q4HRS PRN PO MILD PAIN, 2ND CHOICE; Start 11/24/16 at 13:30 Acetaminophen (Tylenol) 650 mg PRN Q6HRS PRN PO Headaches, Temp > 101.5F; Start 11/24/16 at 13:30 Ibuprofen (Motrin) 400 mg PRN Q6HRS PRN PO MILD PAIN; Start 11/24/16 at 13:30; Status Cancel Docusate Sodium (Colace) 100 mg BID PO Last administered on 12/01/16 08:59; Start 11/24/16 at 14:00 Magnesium Hydroxide (Milk Of Magnesia) 2,400 mg PRN Q12HR PRN PO CONSTIPATION; Start 11/24/16 at 13:30 Lactulose 20 gm PRN Q12HR PRN PO CONSTIPATION Last administered on 12/01/16 08 :59; Start 11/24/16 at 13:30 Bisacodyl (Dulcolax Supp) 10 mg PRN DAILY PRN [place] CONSTIPATION; Start 11/24/16 at 13:30 Enoxaparin Sodium (Lovenox 40mg Syringe) 40 mg DAILY16 SQ Last administered on 11/25/16 15:06; Start 11/24/16 at 16:00; Stop 11/26/16 at 13:47; Status DC Ceftriaxone Sodium 1 gm/ Sodium Chloride 50 ml @ 100 mls/hr Q24H IV Last administered on 11/30/16 14:18; Start 11/24/16 at 14:00; Stop 12/01/16 at 15:07 ; Status DC Metronidazole (Flagyl) 500 mg Q8HRS PO Last administered on 11/24/16 15:26; Start 11/24/16 at 14:00; Stop 11/27/16 at 11:18; Status DC Allopurinol (Zyloprim) 100 mg DAILY PO Last administered on 12/01/16 08:59; Start 11/24/16 at 14:00 Amlodipine Besylate (Norvasc) 10 mg DAILY PO Last administered on 12/01/16 08: 59; Start 11/24/16 at 14:00 Furosemide (Lasix) 60 mg DAILY PO Last administered on 11/24/16 15:26; Start 11/24/16 at 14:00; Stop 11/25/16 at 21:04; Status DC Labetalol HCl (Trandate) 200 mg BID PO Last administered on 11/30/16 21:27; Start 11/24/16 at 14:00 Levothyroxine Sodium (Synthroid) 75 mcg DAILY07 PO Last administered on 15:25; Start 11/24/16 at 14:00; Stop 11/27/16 at 11:18; Status DC Mirtazapine (Remeron) 7.5 mg QHS PO Last administered on 11/30/16 21:27; Start 11/24/16 at 21:00 Atorvastatin Calcium (Lipitor) 10 mg QHS PO Last administered on 11/30/16 21: 27; Start 11/24/16 at 21:00 Labetalol HCl (Normodyne) 10 mg PRN Q2HR PRN IVP HYPERTENSION, SEE COMMENTS Last administered on 11/26/16 23:27; Start 11/24/16 at 13:45 Aspirin (Comfort Aspirin) 325 mg DAILYWBKFT PO Last administered on 12/01/16 08: 59; Start 11/24/16 at 13:45 Sodium Chloride 1,000 ml @ 75 mls/hr [id number] IV Last administered on 03:00; Start 11/25/16 at 11:00; Stop 11/28/16 at 09:37; Status DC Regadenoson (Lexiscan) 0.4 mg 1X ONCE IV Last administered on 11/26/16 10:38 ; Start 11/26/16 at 08:30; Stop 11/26/16 at 08:31; Status DC Hydralazine HCl (Apresoline) 10 mg PRN Q4HRS PRN IVP ELEVATED BP, SEE COMMENTS Last administered on 11/28/16 07:54; Start 11/26/16 at 08:45 Enoxaparin Sodium (Lovenox 30mg Syringe) 30 mg DAILY16 SQ Last administered on 11/30/16 14:18; Start 11/26/16 at 16:00; Stop 12/01/16 at 09:44; Status DC Ondansetron HCl (Zofran) 4 mg PRN Q6HRS PRN IV NAUSEA/VOMITING; Start 11/27/16 at 08:00; Stop 11/27/16 at 18:00; Status DC Fentanyl Citrate (Fentanyl 2ml Vial) 25 mcg PRN Q5MIN PRN IV MILD PAIN; Start 11/27/16 at 08:00; Stop 11/27/16 at 18:00; Status DC Fentanyl Citrate (Fentanyl 2ml Vial) 50 mcg PRN Q5MIN PRN IV MODERATE PAIN; Start 11/27/16 at 08:00; Stop 11/27/16 at 18:00; Status DC Morphine Sulfate 1 mg PRN Q10MIN PRN IV SEVERE PAIN; Start 11/27/16 at 08:00; Stop 11/27/16 at 18:00; Status DC Ringer's Solution 1,000 ml @ 30 mls/hr Q24H IV Last administered on 11/27/16 09:11; Start 11/27/16 at 07:52; Stop 11/27/16 at 19:51; Status DC Lidocaine HCl 2 ml PRN 1X PRN [place] PRIOR TO IV START; Start 11/27/16 at 08:00; Stop 11/27/16 at 18:00; Status DC Hydromorphone HCl (Dilaudid) 0.5 mg PRN Q10MIN PRN IV SEV PAIN, Second choice; Start 11/27/16 at 08:00; Stop 11/27/16 at 18:00; Status DC Prochlorperazine Edisylate (Compazine) 5 mg PACU PRN PRN IV NAUSEA, MRX1; Start 11/27/16 at 08:00; Stop 11/27/16 at 18:00; Status DC Levothyroxine Sodium 37.5 mcg/ Sodium Chloride 5 ml @ 100 mls/hr DAILY IVP Last administered on 11/28/16 09:07; Start 11/27/16 at 12:00; Stop 11/28/16 at 11:58; Status DC Clonidine HCl (Catapres Tts-1) 1 patch WEEKLY TD Last administered on 10:09; Start 11/28/16 at 09:45 Enalaprilat (Vasotec) 1.25 mg Q6HRS IV ; Start 11/28/16 at 09:45; Stop 11/28/16 at 11:58; Status DC Levothyroxine Sodium (Synthroid) 75 mcg DAILY07 PO Last administered on 06:19; Start 11/29/16 at 07:00 Barium Sulfate (Varibar Thin Liquid Apple) 148 gm 1X ONCE PO Last administered on 11/28/16 13:09; Start 11/28/16 at 12:15; Stop 11/28/16 at 12:16 ; Status DC Scopolamine (Transderm-Scop) 1 patch Q72H TD Last administered on 12/01/16 21: 49; Start 11/28/16 at 20:15 Metoprolol Tartrate (Lopressor) 5 mg Q6HRS IVP ; Start 12/01/16 at 16:00; Stop 12/01/16 at 17:50; Status DC Sodium Chloride (Normal Saline Flush) 3 ml QSHIFT PRN IV AFTER MEDS AND BLOOD DRAWS; Start 12/01/16 at 16:00 Cefazolin Sodium 1 gm/Sodium Chloride 50 ml @ 100 mls/hr 1X ONCE IV ; Start at 12:00; Stop 12/02/16 at 12:29 Metoprolol Tartrate (Lopressor) 5 mg Q6HRS PRN IVP HYPERTENSION, SEE COMMENTS; Start 12/01/16 at 17:45 Active Scripts Active Flagyl (Metronidazole) 500 Mg Tablet 500 Mg PO Q8HRS Reported Lasix (Furosemide) 20 Mg Tablet 3 Tab PO DAILY Simvastatin 20 Mg Tablet 1 Tab PO QHS Mirtazapine 7.5 Mg Tablet 7.5 Mg PO DAILY Allopurinol 100 Mg Tablet 1 Tab PO DAILY Levothyroxine Sodium 75 Mcg Tablet 1 Tab PO DAILY Labetalol Hcl 200 Mg Tablet 200 Mg PO BID Norvasc (Amlodipine Besylate) 10 Mg Tablet 10 Mg PO DAILY Vitals/I & O Vital Sign - Last 24 Hours 12/01/16 12/01/16 12/01/16 12/01/16 10:55 14:55 19:15 20:00 Temp 98.8 98.3 98.3 98.8 98.3 98.3 Pulse 66 69 71 Resp 18 20 20 B/P (MAP) 145/53 (83) 137/53 (81) 138/62 (87) Pulse Ox 98 94 98 O2 Delivery Room Air Room Air Room Air Room Air 12/01/16 12/02/16 12/02/16 12/02/16 23:05 03:10 07:30 08:00 Temp 98.3 98.1 98.2 98.3 98.1 98.2 Pulse 67 75 75 Resp 18 18 19 B/P (MAP) 134/55 (81) 138/59 (85) 162/76 (104) Pulse Ox 97 97 96 O2 Delivery Room Air Room Air Room Air Room Air 12/02/16 10:28 Temp 98.7 98.7 Pulse 76 Resp 18 B/P (MAP) 162/81 (108) Pulse Ox 97 O2 Delivery Room Air RICHARD WYNN MD Dec 02, 2016 10:40
--- NOTE | 2016-12-02 11:33 | PDOC ---
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 Recent trichomoniasis Hx CHF, echo 10/31 HTN, uncontrolled Microcytic anemia [place] Creat 1.6, unknown if CKD Carotid atherosclerosis Persistent dysphagia History of Present Illness History of Present Illness Pt laying in bed. Discussed tx plan and awaiting PEG for neurogenic dysphagia, will possibly be placed today per GI. Pt has mild aphasia and some difficulty communicating possible due to complications of stroke. Consults: GI Labs: BUN 29 Creatinine 1.4 Vitals Vitals Vital Signs Date Time Temp Pulse Resp B/P (MAP) Pulse Ox O2 Delivery O2 Flow Rate FiO2 12/02/16 10:28 98.7 76 18 162/81 (108) 97 Room Air 98.7 Physical Exam General: Alert, Oriented X3, Cooperative, No acute distress, Other (mild expressive aphasia) Heart: Regular rate, Normal S1, Normal S2 Lungs: Clear Abdomen: Normal bowel sounds, Soft, No tenderness, No hepatosplenomegaly, No masses Extremities: No clubbing, No cyanosis, No edema, Normal pulses, No tenderness/ swelling Skin: No rashes, No breakdown, No significant lesion Labs LABS Laboratory Tests Test 12/02/16 04:14 White Blood Count 6.7 x10^3/uL (4.0-11.0) Red Blood Count 4.18 x10^6/uL (3.50-5.40) Hemoglobin 9.4 g/dL (12.0-15.5) Hematocrit 29.2 % (36.0-47.0) Mean Corpuscular Volume 70 fL (79-100) Mean Corpuscular Hemoglobin 23 pg (25-35) Mean Corpuscular Hemoglobin Concent 32 g/dL (31-37) Red Cell Distribution Width 16.7 % (11.5-14.5) Platelet Count 237 x10^3/uL (140-400) Neutrophils (%) (Auto) 59 % (31-73) Lymphocytes (%) (Auto) 29 % (24-48) Monocytes (%) (Auto) 7 % (0-9) Eosinophils (%) (Auto) 5 % (0-3) Basophils (%) (Auto) 1 % (0-3) Neutrophils # (Auto) 4.0 x10^3uL (1.8-7.7) Lymphocytes # (Auto) 1.9 x10^3/uL (1.0-4.8) Monocytes # (Auto) 0.5 x10^3/uL (0.0-1.1) Eosinophils # (Auto) 0.3 x10^3/uL (0.0-0.7) Basophils # (Auto) 0.0 x10^3/uL (0.0-0.2) Sodium Level 137 mmol/L (136-145) Potassium Level 5.0 mmol/L (3.5-5.1) Chloride Level 105 mmol/L (98-107) Carbon Dioxide Level 25 mmol/L (21-32) Anion Gap 7 (6-14) Blood Urea Nitrogen 29 mg/dL (7-20) Creatinine 1.4 mg/dL (0.6-1.0) Estimated GFR (Cockcroft-Gault) 43.9 Glucose Level 91 mg/dL (70-99) Calcium Level 8.7 mg/dL (8.5-10.1) Review of Systems Review of Systems Pt complained of fatigue Pt complained of hunger Assessment and Plan Assessmemt and Plan Problems Medical Problems: (1) Acute on chronic congestive heart failure Status: Acute Acute Rt ros[place] infarct [place] occipital infarct Altered mental status UTI,acute bronchitis? Recent trichomoniasis Hx CHF, echo 10/31 HTN, uncontrolled Microcytic anemia [place] Creat 1.6, unknown if CKD Carotid atherosclerosis Persistent dysphagia Plan PEG tube today possibly cont. to diurese Cardiac monitoring cont. home meds Appreciate subspecialty advisement PT/OT Hope to discharge with subspecialty approval tomorrow Problems: Comment Review of Relevant I have reviewed the following items hallie (where applicable) has been applied. Labs Laboratory Tests Test 12/01/16 04:00 12/02/16 04:14 White Blood Count 6.6 x10^3/uL (4.0-11.0) 6.7 x10^3/uL (4.0-11.0) Red Blood Count 4.06 x10^6/uL (3.50-5.40) 4.18 x10^6/uL (3.50-5.40) Hemoglobin 9.2 g/dL (12.0-15.5) 9.4 g/dL (12.0-15.5) Hematocrit 28.5 % (36.0-47.0) 29.2 % (36.0-47.0) Mean Corpuscular Volume 70 fL (79-100) 70 fL (79-100) Mean Corpuscular Hemoglobin 23 pg (25-35) 23 pg (25-35) Mean Corpuscular Hemoglobin Concent 32 g/dL (31-37) 32 g/dL (31-37) Red Cell Distribution Width 16.4 % (11.5-14.5) 16.7 % (11.5-14.5) Platelet Count 212 x10^3/uL (140-400) 237 x10^3/uL (140-400) Neutrophils (%) (Auto) 58 % (31-73) 59 % (31-73) Lymphocytes (%) (Auto) 30 % (24-48) 29 % (24-48) Monocytes (%) (Auto) 7 % (0-9) 7 % (0-9) Eosinophils (%) (Auto) 4 % (0-3) 5 % (0-3) Basophils (%) (Auto) 1 % (0-3) 1 % (0-3) Neutrophils # (Auto) 3.9 x10^3uL (1.8-7.7) 4.0 x10^3uL (1.8-7.7) Lymphocytes # (Auto) 2.0 x10^3/uL (1.0-4.8) 1.9 x10^3/uL (1.0-4.8) Monocytes # (Auto) 0.5 x10^3/uL (0.0-1.1) 0.5 x10^3/uL (0.0-1.1) Eosinophils # (Auto) 0.3 x10^3/uL (0.0-0.7) 0.3 x10^3/uL (0.0-0.7) Basophils # (Auto) 0.0 x10^3/uL (0.0-0.2) 0.0 x10^3/uL (0.0-0.2) Sodium Level 138 mmol/L (136-145) 137 mmol/L (136-145) Potassium Level 4.8 mmol/L (3.5-5.1) 5.0 mmol/L (3.5-5.1) Chloride Level 105 mmol/L (98-107) 105 mmol/L (98-107) Carbon Dioxide Level 25 mmol/L (21-32) 25 mmol/L (21-32) Anion Gap 8 (6-14) 7 (6-14) Blood Urea Nitrogen 32 mg/dL (7-20) 29 mg/dL (7-20) Creatinine 1.5 mg/dL (0.6-1.0) 1.4 mg/dL (0.6-1.0) Estimated GFR (Cockcroft-Gault) 40.5 43.9 Glucose Level 100 mg/dL (70-99) 91 mg/dL (70-99) Calcium Level 8.6 mg/dL (8.5-10.1) 8.7 mg/dL (8.5-10.1) Laboratory Tests Test 12/02/16 04:14 White Blood Count 6.7 x10^3/uL (4.0-11.0) Red Blood Count 4.18 x10^6/uL (3.50-5.40) Hemoglobin 9.4 g/dL (12.0-15.5) Hematocrit 29.2 % (36.0-47.0) Mean Corpuscular Volume 70 fL (79-100) Mean Corpuscular Hemoglobin 23 pg (25-35) Mean Corpuscular Hemoglobin Concent 32 g/dL (31-37) Red Cell Distribution Width 16.7 % (11.5-14.5) Platelet Count 237 x10^3/uL (140-400) Neutrophils (%) (Auto) 59 % (31-73) Lymphocytes (%) (Auto) 29 % (24-48) Monocytes (%) (Auto) 7 % (0-9) Eosinophils (%) (Auto) 5 % (0-3) Basophils (%) (Auto) 1 % (0-3) Neutrophils # (Auto) 4.0 x10^3uL (1.8-7.7) Lymphocytes # (Auto) 1.9 x10^3/uL (1.0-4.8) Monocytes # (Auto) 0.5 x10^3/uL (0.0-1.1) Eosinophils # (Auto) 0.3 x10^3/uL (0.0-0.7) Basophils # (Auto) 0.0 x10^3/uL (0.0-0.2) Sodium Level 137 mmol/L (136-145) Potassium Level 5.0 mmol/L (3.5-5.1) Chloride Level 105 mmol/L (98-107) Carbon Dioxide Level 25 mmol/L (21-32) Anion Gap 7 (6-14) Blood Urea Nitrogen 29 mg/dL (7-20) Creatinine 1.4 mg/dL (0.6-1.0) Estimated GFR (Cockcroft-Gault) 43.9 Glucose Level 91 mg/dL (70-99) Calcium Level 8.7 mg/dL (8.5-10.1) Microbiology 11/24/16 Urine Culture - Final, Complete 11/24/16 Urine Culture Result 1 (MARION) - Final, Complete 11/24/16 Antimicrobic Susceptibility - Final, Complete Medications Current Medications Ondansetron HCl (Zofran) 4 mg PRN Q6HRS PRN IV NAUSEA/VOMITING 1ST CHOICE; Start 11/24/16 at 13:30 Prochlorperazine Edisylate (Compazine) 10 mg PRN Q6HRS PRN IV NAUSEA/VOMITING, 2ND CHOICE; Start 11/24/16 at 13:30 Prochlorperazine (Compazine) 25 mg PRN Q12HR PRN [place] NAUSEA/VOMITING; Start 12/31 at 13:30 Morphine Sulfate 1 mg PRN Q2HR PRN IV PAIN; Start 11/24/16 at 13:30 Acetaminophen/ Hydrocodone Bitart (Lortab 5/325) 1 tab PRN Q4HRS PRN PO MILD PAIN, 2ND CHOICE; Start 11/24/16 at 13:30 Acetaminophen (Tylenol) 650 mg PRN Q6HRS PRN PO Headaches, Temp > 101.5F; Start 11/24/16 at 13:30 Ibuprofen (Motrin) 400 mg PRN Q6HRS PRN PO MILD PAIN; Start 11/24/16 at 13:30; Status Cancel Docusate Sodium (Colace) 100 mg BID PO Last administered on 12/01/16t 08:59; Start 11/24/16 at 14:00 Magnesium Hydroxide (Milk Of Magnesia) 2,400 mg PRN Q12HR PRN PO CONSTIPATION; Start 11/24/16 at 13:30 Lactulose 20 gm PRN Q12HR PRN PO CONSTIPATION Last administered on 12/01/16 08 :59; Start 11/24/16 at 13:30 Bisacodyl (Dulcolax Supp) 10 mg PRN DAILY PRN [place] CONSTIPATION; Start 11/24/16 at 13:30 Enoxaparin Sodium (Lovenox 40mg Syringe) 40 mg DAILY16 SQ Last administered on 11/25/16 15:06; Start 11/24/16 at 16:00; Stop 11/26/16 at 13:47; Status DC Ceftriaxone Sodium 1 gm/ Sodium Chloride 50 ml @ 100 mls/hr Q24H IV Last administered on 11/30/16 14:18; Start 11/24/16 at 14:00; Stop 12/01/16 at 15:07 ; Status DC Metronidazole (Flagyl) 500 mg Q8HRS PO Last administered on 11/24/16 15:26; Start 11/24/16 at 14:00; Stop 11/27/16 at 11:18; Status DC Allopurinol (Zyloprim) 100 mg DAILY PO Last administered on 12/01/16 08:59; Start 11/24/16 at 14:00 Amlodipine Besylate (Norvasc) 10 mg DAILY PO Last administered on 12/01/16 08: 59; Start 11/24/16 at 14:00 Furosemide (Lasix) 60 mg DAILY PO Last administered on 11/24/16 15:26; Start 11/24/16 at 14:00; Stop 11/25/16 at 21:04; Status DC Labetalol HCl (Trandate) 200 mg BID PO Last administered on 11/30/16 21:27; Start 11/24/16 at 14:00 Levothyroxine Sodium (Synthroid) 75 mcg DAILY07 PO Last administered on 15:25; Start 11/24/16 at 14:00; Stop 11/27/16 at 11:18; Status DC Mirtazapine (Remeron) 7.5 mg QHS PO Last administered on 11/30/16 21:27; Start 11/24/16 at 21:00 Atorvastatin Calcium (Lipitor) 10 mg QHS PO Last administered on 11/30/16 21: 27; Start 11/24/16 at 21:00 Labetalol HCl (Normodyne) 10 mg PRN Q2HR PRN IVP HYPERTENSION, SEE COMMENTS Last administered on 11/26/16 23:27; Start 11/24/16 at 13:45 Aspirin (Comfort Aspirin) 325 mg DAILYWBKFT PO Last administered on 12/01/16 08: 59; Start 11/24/16 at 13:45 Sodium Chloride 1,000 ml @ 75 mls/hr [id number] IV Last administered on 03:00; Start 11/25/16 at 11:00; Stop 11/28/16 at 09:37; Status DC Regadenoson (Lexiscan) 0.4 mg 1X ONCE IV Last administered on 11/26/16 10:38 ; Start 11/26/16 at 08:30; Stop 11/26/16 at 08:31; Status DC Hydralazine HCl (Apresoline) 10 mg PRN Q4HRS PRN IVP ELEVATED BP, SEE COMMENTS Last administered on 11/28/16 07:54; Start 11/26/16 at 08:45 Enoxaparin Sodium (Lovenox 30mg Syringe) 30 mg DAILY16 SQ Last administered on 11/30/16 14:18; Start 11/26/16 at 16:00; Stop 12/01/16 at 09:44; Status DC Ondansetron HCl (Zofran) 4 mg PRN Q6HRS PRN IV NAUSEA/VOMITING; Start 11/27/16 at 08:00; Stop 11/27/16 at 18:00; Status DC Fentanyl Citrate (Fentanyl 2ml Vial) 25 mcg PRN Q5MIN PRN IV MILD PAIN; Start 11/27/16 at 08:00; Stop 11/27/16 at 18:00; Status DC Fentanyl Citrate (Fentanyl 2ml Vial) 50 mcg PRN Q5MIN PRN IV MODERATE PAIN; Start 11/27/16 at 08:00; Stop 11/27/16 at 18:00; Status DC Morphine Sulfate 1 mg PRN Q10MIN PRN IV SEVERE PAIN; Start 11/27/16 at 08:00; Stop 11/27/16 at 18:00; Status DC Ringer's Solution 1,000 ml @ 30 mls/hr Q24H IV Last administered on 11/27/16 09:11; Start 11/27/16 at 07:52; Stop 11/27/16 at 19:51; Status DC Lidocaine HCl 2 ml PRN 1X PRN ID PRIOR TO IV START; Start 11/27/16 at 08:00; Stop 11/27/16 at 18:00; Status DC Hydromorphone HCl (Dilaudid) 0.5 mg PRN Q10MIN PRN IV SEV PAIN, Second choice; Start 11/27/16 at 08:00; Stop 11/27/16 at 18:00; Status DC Prochlorperazine Edisylate (Compazine) 5 mg PACU PRN PRN IV NAUSEA, MRX1; Start 11/27/16 at 08:00; Stop 11/27/16 at 18:00; Status DC Levothyroxine Sodium 37.5 mcg/ Sodium Chloride 5 ml @ 100 mls/hr DAILY IVP Last administered on 11/28/16 09:07; Start 11/27/16 at 12:00; Stop 11/28/16 at 11:58; Status DC Clonidine HCl (Catapres Tts-1) 1 patch WEEKLY TD Last administered on 10:09; Start 11/28/16 at 09:45 Enalaprilat (Vasotec) 1.25 mg Q6HRS IV ; Start 11/28/16 at 09:45; Stop 11/28/16 at 11:58; Status DC Levothyroxine Sodium (Synthroid) 75 mcg DAILY07 PO Last administered on 06:19; Start 11/29/16 at 07:00 Barium Sulfate (Varibar Thin Liquid Apple) 148 gm 1X ONCE PO Last administered on 11/28/16 13:09; Start 11/28/16 at 12:15; Stop 11/28/16 at 12:16 ; Status DC Scopolamine (Transderm-Scop) 1 patch Q72H TD Last administered on 12/01/16 21: 49; Start 11/28/16 at 20:15 Metoprolol Tartrate (Lopressor) 5 mg Q6HRS IVP ; Start 12/01/16 at 16:00; Stop 12/01/16 at 17:50; Status DC Sodium Chloride (Normal Saline Flush) 3 ml QSHIFT PRN IV AFTER MEDS AND BLOOD DRAWS; Start 12/01/16 at 16:00 Cefazolin Sodium 1 gm/Sodium Chloride 50 ml @ 100 mls/hr 1X ONCE IV ; Start at 12:00; Stop 12/02/16 at 12:29 Metoprolol Tartrate (Lopressor) 5 mg Q6HRS PRN IVP HYPERTENSION, SEE COMMENTS; Start 12/01/16 at 17:45 Active Scripts Active Flagyl (Metronidazole) 500 Mg Tablet 500 Mg PO Q8HRS Reported Lasix (Furosemide) 20 Mg Tablet 3 Tab PO DAILY Simvastatin 20 Mg Tablet 1 Tab PO QHS Mirtazapine 7.5 Mg Tablet 7.5 Mg PO DAILY Allopurinol 100 Mg Tablet 1 Tab PO DAILY Levothyroxine Sodium 75 Mcg Tablet 1 Tab PO DAILY Labetalol Hcl 200 Mg Tablet 200 Mg PO BID Norvasc (Amlodipine Besylate) 10 Mg Tablet 10 Mg PO DAILY Vitals/I & O Vital Sign - Last 24 Hours 12/01/16 12/01/16 12/01/16 12/01/16 14:55 19:15 20:00 23:05 Temp 98.3 98.3 98.3 98.3 98.3 98.3 Pulse 69 71 67 Resp 20 18 B/P (MAP) 137/53 (81) 138/62 (87) 134/55 (81) Pulse Ox 94 98 97 O2 Delivery Room Air Room Air Room Air Room Air 12/02/16 12/02/16 12/02/16 12/02/16 03:10 07:30 08:00 10:28 Temp 98.1 98.2 98.7 98.1 98.2 98.7 Pulse 75 75 76 Resp 18 B/P (MAP) 138/59 (85) 162/76 (104) 162/81 (108) Pulse Ox 97 96 97 O2 Delivery Room Air Room Air Room Air Room Air BRADLY TILLEY III DO Dec 02, 2016 11:33
[2016-12-02] MEDS ORDERED: IV RINGERS,LACTATED 1000ML 1,000 ML IV SCH (12:30)
[2016-12-02] MEDS ORDERED: LIDOCAINE 2% PF Vial for OR 5 ML VIAL. ONE (12:43)
[2016-12-02] MEDS ORDERED: PROPOFOL 20 ML IV ONE (12:43)
--- NOTE | 2016-12-02 13:19 | PDOC4 ---
PROCEDURE Procedure EGD/PEG Indication: neurogenic dysphagia Meds: per anesthesia Findings: E--Mild reflux changes at GEJ (40cm). G--normal. D--normal to second. --20F PEG placed uneventully. Brief re-scope confirms good position. Mona. well. IMP: mild reflux Successful PEG. REC: Water, meds OK per tube today. If no problems, start feeding in AM. Abdominal binder. Thanks. RADHA MURRIETA MD Dec 02, 2016 13:19
[2016-12-02] MEDS: hydrALAZINE 20 MG/ML VIAL. IVP PRN (14:11)
[2016-12-02] MEDS: HYDROcodone/APAP 5/325MG 1 TAB TABLET PO PRN ×2 (14:12→18:24)
[2016-12-02 14:19] VITALS: BP 215/90
[2016-12-02 19:05] VITALS: BP 130/61
--- NOTE | 2016-12-02 20:40 | PDOC ---
Provider Note Provider Note PEG was placed today and antihypertensive drugs resumed viaq the PEG. BP that was elevated this AM has normalized .Discussed with daughter, Yolette. MELISSA HERNÁNDEZ MD Dec 02, 2016 20:40
[2016-12-02] MEDS: MIRTAZAPINE 7.5 MG TABLET. PO SCH (21:18)
[2016-12-02] MEDS: ATORVASTATIN CALCIUM 10 MG TABLET. PO SCH (21:18)
[2016-12-02 22:35] VITALS: BP 163/72
[2016-12-03 02:55] VITALS: BP 127/60
[2016-12-03 05:51] LABS: BASO % 0 % (0-3); EOS % 2 % (0-3); HEMATOCRIT 30.7 % (36.0-47.0); HEMOGLOBIN 9.8 g/dL (12.0-15.5); LYMPH # 1.5 x10^3/uL (1.0-4.8); LYMPH % 16 % (24-48); MEAN CORPUSCULAR HEMOGLOBIN 23 pg (25-35); MEAN CORPUSCULAR HGB CONC 32 g/dL (31-37); MEAN CORPUSCULAR VOLUME 71 fL (79-100); MONO % 7 % (0-9); NEUT % 75 % (31-73); PLATELET COUNT 237 x10^3/uL (140-400); RED BLOOD COUNT 4.35 x10^6/uL (3.50-5.40); RED CELL DISTRIBUTION WIDTH 16.4 % (11.5-14.5); WHITE BLOOD COUNT 9.2 x10^3/uL (4.0-11.0)
[2016-12-03 06:14] LABS: CALCIUM 8.9 mg/dL (8.5-10.1); CREATININE 1.4 mg/dL (0.6-1.0); GFR 43.9
[2016-12-03 07:50] VITALS: BP 145/66
[2016-12-03] MEDS ORDERED: SODIUM POLYSTYRENE SULFONATE 15 GM/60 ML ORAL.SUSP. PO ONE (08:30)
[2016-12-03] MEDS ORDERED: ALBUTEROL SULFATE 2.5 MG/3 ML NEBU. NEB ONE (08:30)
[2016-12-03] MEDS: ALLOPURINOL 100 MG TABLET. PO SCH (08:45)
[2016-12-03] MEDS: LEVOTHYROXINE 75 MCG TABLET PO SCH (08:45)
[2016-12-03] MEDS: LACTULOSE 20 GM/30 ML SOLUTION. PO PRN (08:46)
[2016-12-03] MEDS: amLODIPine BESYLATE 10 MG TABLET PO SCH (08:46)
[2016-12-03] MEDS: ASPIRIN 325 MG TABLET PO SCH (08:46)
[2016-12-03] MEDS: LABETALOL HCL 200 MG TABLET PO SCH ×2 (08:46→20:27)
[2016-12-03] MEDS: DOCUSATE SODIUM 100 MG CAPSULE. PO SCH ×2 (09:00→20:28)
--- NOTE | 2016-12-03 09:44 | PDOC ---
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 Recent trichomoniasis Hx CHF, echo 10/31 HTN, uncontrolled Microcytic anemia [place] Creat 1.6, unknown if CKD Carotid atherosclerosis Persistent dysphagia History of Present Illness History of Present Illness Pt laying in bed and conversant. Nurse was also in room. Discussed plan of care with patient including possible discharge tomorrow. Pt still experiencing feeling of dysphagia. PEG tube was placed yesterday and visualized in the room today. Consults: GI Labs: BUN 31 Creatinine 1.4 Potassium 6 Vitals Vitals Vital Signs Date Time Temp Pulse Resp B/P (MAP) Pulse Ox O2 Delivery O2 Flow Rate FiO2 12/03/16 08:46 75 145/66 12/03/16 08:23 91 Room Air 12/03/16 07:50 98.6 19 98.6 12/02/16 15:10 3.0 Physical Exam General: Alert, Oriented X3, Cooperative, No acute distress Heart: Regular rate, Normal S1, Normal S2 Lungs: Clear Abdomen: Normal bowel sounds, Soft, No tenderness, No masses Extremities: No clubbing, No edema, No tenderness/swelling Skin: No rashes, No breakdown, No significant lesion Labs LABS Laboratory Tests Test 12/03/16 04:30 White Blood Count 9.2 x10^3/uL (4.0-11.0) Red Blood Count 4.35 x10^6/uL (3.50-5.40) Hemoglobin 9.8 g/dL (12.0-15.5) Hematocrit 30.7 % (36.0-47.0) Mean Corpuscular Volume 71 fL (79-100) Mean Corpuscular Hemoglobin 23 pg (25-35) Mean Corpuscular Hemoglobin Concent 32 g/dL (31-37) Red Cell Distribution Width 16.4 % (11.5-14.5) Platelet Count 237 x10^3/uL (140-400) Neutrophils (%) (Auto) 75 % (31-73) Lymphocytes (%) (Auto) 16 % (24-48) Monocytes (%) (Auto) 7 % (0-9) Eosinophils (%) (Auto) 2 % (0-3) Basophils (%) (Auto) 0 % (0-3) Neutrophils # (Auto) 6.9 x10^3uL (1.8-7.7) Lymphocytes # (Auto) 1.5 x10^3/uL (1.0-4.8) Monocytes # (Auto) 0.6 x10^3/uL (0.0-1.1) Eosinophils # (Auto) 0.2 x10^3/uL (0.0-0.7) Basophils # (Auto) 0.0 x10^3/uL (0.0-0.2) Sodium Level 137 mmol/L (136-145) Potassium Level 6.0 mmol/L (3.5-5.1) Chloride Level 103 mmol/L (98-107) Carbon Dioxide Level 27 mmol/L (21-32) Anion Gap 7 (6-14) Blood Urea Nitrogen 31 mg/dL (7-20) Creatinine 1.4 mg/dL (0.6-1.0) Estimated GFR (Cockcroft-Gault) 43.9 Glucose Level 90 mg/dL (70-99) Calcium Level 8.9 mg/dL (8.5-10.1) Review of Systems Review of Systems Pt complains of dysphagia Pt complains of fatigue Pt complains of hunger Assessment and Plan Assessmemt and Plan Problems Medical Problems: (1) Acute on chronic congestive heart failure Status: Acute Acute Rt ros[place] infarct [place] occipital infarct Altered mental status UTI,acute bronchitis? Recent trichomoniasis Hx CHF, echo 10/31 HTN, uncontrolled Microcytic anemia [place] Creat 1.6, unknown if CKD Carotid atherosclerosis Persistent dysphagia Plan Probably start PEG feeds today Ordered Kayexalate for elevated potassium Discussed plan with RN Appreciate subspecialist input Cont. BP meds PT/OT/ST Probable D/C tomorrow to rehab Problems: Comment Review of Relevant I have reviewed the following items hallie (where applicable) has been applied. Labs Laboratory Tests Test 12/02/16 04:14 12/03/16 04:30 White Blood Count 6.7 x10^3/uL (4.0-11.0) 9.2 x10^3/uL (4.0-11.0) Red Blood Count 4.18 x10^6/uL (3.50-5.40) 4.35 x10^6/uL (3.50-5.40) Hemoglobin 9.4 g/dL (12.0-15.5) 9.8 g/dL (12.0-15.5) Hematocrit 29.2 % (36.0-47.0) 30.7 % (36.0-47.0) Mean Corpuscular Volume 70 fL (79-100) 71 fL (79-100) Mean Corpuscular Hemoglobin 23 pg (25-35) 23 pg (25-35) Mean Corpuscular Hemoglobin Concent 32 g/dL (31-37) 32 g/dL (31-37) Red Cell Distribution Width 16.7 % (11.5-14.5) 16.4 % (11.5-14.5) Platelet Count 237 x10^3/uL (140-400) 237 x10^3/uL (140-400) Neutrophils (%) (Auto) 59 % (31-73) 75 % (31-73) Lymphocytes (%) (Auto) 29 % (24-48) 16 % (24-48) Monocytes (%) (Auto) 7 % (0-9) 7 % (0-9) Eosinophils (%) (Auto) 5 % (0-3) 2 % (0-3) Basophils (%) (Auto) 1 % (0-3) 0 % (0-3) Neutrophils # (Auto) 4.0 x10^3uL (1.8-7.7) 6.9 x10^3uL (1.8-7.7) Lymphocytes # (Auto) 1.9 x10^3/uL (1.0-4.8) 1.5 x10^3/uL (1.0-4.8) Monocytes # (Auto) 0.5 x10^3/uL (0.0-1.1) 0.6 x10^3/uL (0.0-1.1) Eosinophils # (Auto) 0.3 x10^3/uL (0.0-0.7) 0.2 x10^3/uL (0.0-0.7) Basophils # (Auto) 0.0 x10^3/uL (0.0-0.2) 0.0 x10^3/uL (0.0-0.2) Sodium Level 137 mmol/L (136-145) 137 mmol/L (136-145) Potassium Level 5.0 mmol/L (3.5-5.1) 6.0 mmol/L (3.5-5.1) Chloride Level 105 mmol/L (98-107) 103 mmol/L (98-107) Carbon Dioxide Level 25 mmol/L (21-32) 27 mmol/L (21-32) Anion Gap 7 (6-14) 7 (6-14) Blood Urea Nitrogen 29 mg/dL (7-20) 31 mg/dL (7-20) Creatinine 1.4 mg/dL (0.6-1.0) 1.4 mg/dL (0.6-1.0) Estimated GFR (Cockcroft-Gault) 43.9 43.9 Glucose Level 91 mg/dL (70-99) 90 mg/dL (70-99) Calcium Level 8.7 mg/dL (8.5-10.1) 8.9 mg/dL (8.5-10.1) Laboratory Tests Test 12/03/16 04:30 White Blood Count 9.2 x10^3/uL (4.0-11.0) Red Blood Count 4.35 x10^6/uL (3.50-5.40) Hemoglobin 9.8 g/dL (12.0-15.5) Hematocrit 30.7 % (36.0-47.0) Mean Corpuscular Volume 71 fL (79-100) Mean Corpuscular Hemoglobin 23 pg (25-35) Mean Corpuscular Hemoglobin Concent 32 g/dL (31-37) Red Cell Distribution Width 16.4 % (11.5-14.5) Platelet Count 237 x10^3/uL (140-400) Neutrophils (%) (Auto) 75 % (31-73) Lymphocytes (%) (Auto) 16 % (24-48) Monocytes (%) (Auto) 7 % (0-9) Eosinophils (%) (Auto) 2 % (0-3) Basophils (%) (Auto) 0 % (0-3) Neutrophils # (Auto) 6.9 x10^3uL (1.8-7.7) Lymphocytes # (Auto) 1.5 x10^3/uL (1.0-4.8) Monocytes # (Auto) 0.6 x10^3/uL (0.0-1.1) Eosinophils # (Auto) 0.2 x10^3/uL (0.0-0.7) Basophils # (Auto) 0.0 x10^3/uL (0.0-0.2) Sodium Level 137 mmol/L (136-145) Potassium Level 6.0 mmol/L (3.5-5.1) Chloride Level 103 mmol/L (98-107) Carbon Dioxide Level 27 mmol/L (21-32) Anion Gap 7 (6-14) Blood Urea Nitrogen 31 mg/dL (7-20) Creatinine 1.4 mg/dL (0.6-1.0) Estimated GFR (Cockcroft-Gault) 43.9 Glucose Level 90 mg/dL (70-99) Calcium Level 8.9 mg/dL (8.5-10.1) Microbiology 11/24/16 Urine Culture - Final, Complete 11/24/16 Urine Culture Result 1 (MARION) - Final, Complete 11/24/16 Antimicrobic Susceptibility - Final, Complete Medications Current Medications Ondansetron HCl (Zofran) 4 mg PRN Q6HRS PRN IV NAUSEA/VOMITING 1ST CHOICE; Start 11/24/16 at 13:30 Prochlorperazine Edisylate (Compazine) 10 mg PRN Q6HRS PRN IV NAUSEA/VOMITING, 2ND CHOICE; Start 11/24/16 at 13:30 Prochlorperazine (Compazine) 25 mg PRN Q12HR PRN PA NAUSEA/VOMITING; Start 12/31 at 13:30 Morphine Sulfate 1 mg PRN Q2HR PRN IV PAIN; Start 11/24/16 at 13:30 Acetaminophen/ Hydrocodone Bitart (Lortab 5/325) 1 tab PRN Q4HRS PRN PO MILD PAIN, 2ND CHOICE Last administered on 12/02/16 18:24; Start 11/24/16 at 13:30 Acetaminophen (Tylenol) 650 mg PRN Q6HRS PRN PO Headaches, Temp > 101.5F; Start 11/24/16 at 13:30 Ibuprofen (Motrin) 400 mg PRN Q6HRS PRN PO MILD PAIN; Start 11/24/16 at 13:30; Status Cancel Docusate Sodium (Colace) 100 mg BID PO Last administered on 9/17/17at 08:59; Start 11/24/16 at 14:00 Magnesium Hydroxide (Milk Of Magnesia) 2,400 mg PRN Q12HR PRN PO CONSTIPATION; Start 11/24/16 at 13:30 Lactulose 20 gm PRN Q12HR PRN PO CONSTIPATION Last administered on 12/03/16 08 :46; Start 11/24/16 at 13:30 Bisacodyl (Dulcolax Supp) 10 mg PRN DAILY PRN PA CONSTIPATION; Start 11/24/16 at 13:30 Enoxaparin Sodium (Lovenox 40mg Syringe) 40 mg DAILY16 SQ Last administered on 11/25/16 15:06; Start 11/24/16 at 16:00; Stop 11/26/16 at 13:47; Status DC Ceftriaxone Sodium 1 gm/ Sodium Chloride 50 ml @ 100 mls/hr Q24H IV Last administered on 11/30/16 14:18; Start 11/24/16 at 14:00; Stop 12/01/16 at 15:07 ; Status DC Metronidazole (Flagyl) 500 mg Q8HRS PO Last administered on 11/24/16 15:26; Start 11/24/16 at 14:00; Stop 11/27/16 at 11:18; Status DC Allopurinol (Zyloprim) 100 mg DAILY PO Last administered on 12/03/16 08:45; Start 11/24/16 at 14:00 Amlodipine Besylate (Norvasc) 10 mg DAILY PO Last administered on 12/03/16 08: 46; Start 11/24/16 at 14:00 Furosemide (Lasix) 60 mg DAILY PO Last administered on 11/24/16 15:26; Start 11/24/16 at 14:00; Stop 11/25/16 at 21:04; Status DC Labetalol HCl (Trandate) 200 mg BID PO Last administered on 12/03/16 08:46; Start 11/24/16 at 14:00 Levothyroxine Sodium (Synthroid) 75 mcg DAILY07 PO Last administered on 15:25; Start 11/24/16 at 14:00; Stop 11/27/16 at 11:18; Status DC Mirtazapine (Remeron) 7.5 mg QHS PO Last administered on 12/02/16 21:18; Start 11/24/16 at 21:00 Atorvastatin Calcium (Lipitor) 10 mg QHS PO Last administered on 12/02/16 21: 18; Start 11/24/16 at 21:00 Labetalol HCl (Normodyne) 10 mg PRN Q2HR PRN IVP HYPERTENSION, SEE COMMENTS Last administered on 11/26/16 23:27; Start 11/24/16 at 13:45 Aspirin (Comfort Aspirin) 325 mg [id number] PO Last administered on 12/03/16 08: 46; Start 11/24/16 at 13:45 Sodium Chloride 1,000 ml @ 75 mls/hr [id number] IV Last administered on 03:00; Start 11/25/16 at 11:00; Stop 11/28/16 at 09:37; Status DC Regadenoson (Lexiscan) 0.4 mg 1X ONCE IV Last administered on 11/26/16 10:38 ; Start 11/26/16 at 08:30; Stop 11/26/16 at 08:31; Status DC Hydralazine HCl (Apresoline) 10 mg PRN Q4HRS PRN IVP ELEVATED BP, SEE COMMENTS Last administered on 12/02/16 14:11; Start 11/26/16 at 08:45 Enoxaparin Sodium (Lovenox 30mg Syringe) 30 mg DAILY16 SQ Last administered on 11/30/16 14:18; Start 11/26/16 at 16:00; Stop 12/01/16 at 09:44; Status DC Ondansetron HCl (Zofran) 4 mg PRN Q6HRS PRN IV NAUSEA/VOMITING; Start 11/27/16 at 08:00; Stop 11/27/16 at 18:00; Status DC Fentanyl Citrate (Fentanyl 2ml Vial) 25 mcg PRN Q5MIN PRN IV MILD PAIN; Start 11/27/16 at 08:00; Stop 11/27/16 at 18:00; Status DC Fentanyl Citrate (Fentanyl 2ml Vial) 50 mcg PRN Q5MIN PRN IV MODERATE PAIN; Start 11/27/16 at 08:00; Stop 11/27/16 at 18:00; Status DC Morphine Sulfate 1 mg PRN Q10MIN PRN IV SEVERE PAIN; Start 11/27/16 at 08:00; Stop 11/27/16 at 18:00; Status DC Ringer's Solution 1,000 ml @ 30 mls/hr Q24H IV Last administered on 11/27/16 09:11; Start 11/27/16 at 07:52; Stop 11/27/16 at 19:51; Status DC Lidocaine HCl 2 ml PRN 1X PRN ID PRIOR TO IV START; Start 11/27/16 at 08:00; Stop 11/27/16 at 18:00; Status DC Hydromorphone HCl (Dilaudid) 0.5 mg PRN Q10MIN PRN IV SEV PAIN, Second choice; Start 11/27/16 at 08:00; Stop 11/27/16 at 18:00; Status DC Prochlorperazine Edisylate (Compazine) 5 mg PACU PRN PRN IV NAUSEA, MRX1; Start 11/27/16 at 08:00; Stop 11/27/16 at 18:00; Status DC Levothyroxine Sodium 37.5 mcg/ Sodium Chloride 5 ml @ 100 mls/hr DAILY IVP Last administered on 11/28/16 09:07; Start 11/27/16 at 12:00; Stop 11/28/16 at 11:58; Status DC Clonidine HCl (Catapres Tts-1) 1 patch WEEKLY TD Last administered on 10:09; Start 11/28/16 at 09:45 Enalaprilat (Vasotec) 1.25 mg Q6HRS IV ; Start 11/28/16 at 09:45; Stop 11/28/16 at 11:58; Status DC Levothyroxine Sodium (Synthroid) 75 mcg DAILY07 PO Last administered on 08:45; Start 11/29/16 at 07:00 Barium Sulfate (Varibar Thin Liquid Apple) 148 gm 1X ONCE PO Last administered on 11/28/16 13:09; Start 11/28/16 at 12:15; Stop 11/28/16 at 12:16 ; Status DC Scopolamine (Transderm-Scop) 1 patch Q72H TD Last administered on 12/01/16 21: 49; Start 11/28/16 at 20:15 Metoprolol Tartrate (Lopressor) 5 mg Q6HRS IVP ; Start 12/01/16 at 16:00; Stop 12/01/16 at 17:50; Status DC Sodium Chloride (Normal Saline Flush) 3 ml QSHIFT PRN IV AFTER MEDS AND BLOOD DRAWS; Start 12/01/16 at 16:00 Cefazolin Sodium 1 gm/Sodium Chloride 50 ml @ 100 mls/hr 1X ONCE IV Last administered on 12/02/16 12:31; Start 12/02/16 at 12:00; Stop 12/02/16 at 12:29 ; Status DC Metoprolol Tartrate (Lopressor) 5 mg Q6HRS PRN IVP HYPERTENSION, SEE COMMENTS; Start 12/01/16 at 17:45 Propofol 20 ml @ As Directed STK-MED ONCE IV ; Start 12/02/16 at 12:43; Stop at 12:44; Status DC Lidocaine HCl (Lidocaine Pf 2% Vial) 5 ml STK-MED ONCE .ROUTE ; Start 12/02/16 at 12:43; Stop 12/02/16 at 12:44; Status DC Ringer's Solution 1,000 ml @ 30 mls/hr Q24H IV Last administered on 12/02/16 12:30; Start 12/02/16 at 12:30 Sodium Polystyrene Sulfonate (Kayexalate) 15 gm 1X ONCE PO Last administered on 12/03/16 08:46; Start 12/03/16 at 08:30; Stop 12/03/16 at 08:31; Status DC Albuterol Sulfate (Ventolin Neb Soln) 2.5 mg 1X ONCE NEB ; Start 12/03/16 at 08 :30; Stop 12/03/16 at 08:31; Status DC Active Scripts Active Flagyl (Metronidazole) 500 Mg Tablet 500 Mg PO Q8HRS Reported Lasix (Furosemide) 20 Mg Tablet 3 Tab PO DAILY Simvastatin 20 Mg Tablet 1 Tab PO QHS Mirtazapine 7.5 Mg Tablet 7.5 Mg PO DAILY Allopurinol 100 Mg Tablet 1 Tab PO DAILY Levothyroxine Sodium 75 Mcg Tablet 1 Tab PO DAILY Labetalol Hcl 200 Mg Tablet 200 Mg PO BID Norvasc (Amlodipine Besylate) 10 Mg Tablet 10 Mg PO DAILY Vitals/I & O Vital Sign - Last 24 Hours 12/02/16 12/02/16 12/02/16 12/02/16 10:28 12:13 13:16 13:31 Temp 98.7 98.8 98.6 98.7 98.8 98.6 Pulse 76 74 67 78 Resp 18 16 18 B/P (MAP) 162/81 (108) 201/89 198/72 Pulse Ox 97 97 98 97 O2 Delivery Room Air Nasal Cannula Nasal Cannula O2 Flow Rate 3 3 12/02/16 12/02/16 12/02/16 12/02/16 13:47 14:11 14:11 14:11 Pulse 78 78 78 78 Resp 18 B/P (MAP) 200/85 200/85 200/85 200/85 Pulse Ox 96 O2 Delivery Room Air 12/02/16 12/02/16 12/02/16 12/02/16 14:12 14:19 15:10 18:24 Pulse 78 Resp 24 20 22 B/P (MAP) 215/90 (131) Pulse Ox 96 96 O2 Delivery Room Air Room Air O2 Flow Rate 3.0 12/02/16 12/02/16 12/02/16 12/02/16 19:05 19:35 21:00 21:17 Temp 98.5 98.5 Pulse 70 70 Resp 18 B/P (MAP) 130/61 (84) 133/64 Pulse Ox 95 O2 Delivery Room Air Room Air Room Air 12/02/16 12/03/16 12/03/16 12/03/16 22:35 02:55 07:50 08:23 Temp 98.5 98.4 98.6 98.5 98.4 98.6 Pulse 78 75 Resp 18 18 19 B/P (MAP) 163/72 (102) 127/60 (82) 145/66 (92) Pulse Ox 96 96 92 91 O2 Delivery Room Air Room Air Room Air Room Air 12/03/16 12/03/16 08:46 08:46 Pulse 75 75 B/P (MAP) 145/66 145/66 BRADLY TILLEY III DO Dec 03, 2016 09:44
[2016-12-03 10:28] VITALS: BP 128/58
--- NOTE | 2016-12-03 11:05 | PDOC ---
Subjective: Subjective: No complaints - denies pain, doesn't feel bloated or constipated. Has been passing gas. Objective: Objective: Per RN - bloated/tight abd, just received lactulose and kayexalate. No issues w/ PEG. Vital Signs: Vital Signs Date Time Temp Pulse Resp B/P (MAP) Pulse Ox O2 Delivery O2 Flow Rate FiO2 12/03/16 10:28 98.6 66 18 128/58 (81) 95 Room Air 98.6 12/02/16 15:10 3.0 Labs: Laboratory Tests Test 12/03/16 04:30 White Blood Count 9.2 x10^3/uL Red Blood Count 4.35 x10^6/uL Hemoglobin 9.8 g/dL Hematocrit 30.7 % Mean Corpuscular Volume 71 fL Mean Corpuscular Hemoglobin 23 pg Mean Corpuscular Hemoglobin Concent 32 g/dL Red Cell Distribution Width 16.4 % Platelet Count 237 x10^3/uL Neutrophils (%) (Auto) 75 % Lymphocytes (%) (Auto) 16 % Monocytes (%) (Auto) 7 % Eosinophils (%) (Auto) 2 % Basophils (%) (Auto) 0 % Neutrophils # (Auto) 6.9 x10^3uL Lymphocytes # (Auto) 1.5 x10^3/uL Monocytes # (Auto) 0.6 x10^3/uL Eosinophils # (Auto) 0.2 x10^3/uL Basophils # (Auto) 0.0 x10^3/uL Sodium Level 137 mmol/L Potassium Level 6.0 mmol/L Chloride Level 103 mmol/L Carbon Dioxide Level 27 mmol/L Anion Gap 7 Blood Urea Nitrogen 31 mg/dL Creatinine 1.4 mg/dL Estimated GFR (Cockcroft-Gault) 43.9 Glucose Level 90 mg/dL Calcium Level 8.9 mg/dL PE: GEN: NAD LUNGS: clear HEART: RRR ABD: some distention, non-tender, PEG site clean/dry (gauze removed from under bumper, abd binder replaced), BS+ NEURO/PSYCH: A & O 3 A/P: S/p PEG 12/02/16 (s/p CVA w/ dysphagia) Hyperkalemia -per primary -- Okay to start tube feeds. EDMOND RODRIGUEZ Dec 03, 2016 11:04
--- NOTE | 2016-12-03 12:01 | PDOC ---
PROGRESS NOTES Assessment Problems Medical Problems: (1) Acute on chronic congestive heart failure Status: Acute Acute 2 cm x 1 cm infarct in right [place]. Metabolic encephalopathy. 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 S/P PEG Plan Continue ASA 325 mg daily ( She did not take ASA before per her nurse).. Continue Lipitor HS.PEG planned for today ST/OT/PT Transfer to SNU/rehab Subjective No complaints Objective Vital Signs Date Time Temp Pulse Resp B/P (MAP) Pulse Ox O2 Delivery O2 Flow Rate FiO2 12/03/16 10:28 98.6 66 18 128/58 (81) 95 Room Air 98.6 12/02/16 15:10 3.0 Intake and Output 12/04/16 07:00 # Bowel Movements 1 PHYSICAL EXAM Alert. Oriented to time, place and person. PERRL. EOMI. CN: Mild dysarthria, otherwise no focal findings. Muscle tone: normal. Muscle strength: 4/5 DTR: 2+ Plantar reflex: flexor Gait: not examined in bed. Sensory exam: no abnormal findings. Right>left dysmetria Review of Relevant I have reviewed the following items hallie (where applicable) has been applied. Labs Laboratory Tests Test 12/02/16 04:14 12/03/16 04:30 White Blood Count 6.7 x10^3/uL (4.0-11.0) 9.2 x10^3/uL (4.0-11.0) Red Blood Count 4.18 x10^6/uL (3.50-5.40) 4.35 x10^6/uL (3.50-5.40) Hemoglobin 9.4 g/dL (12.0-15.5) 9.8 g/dL (12.0-15.5) Hematocrit 29.2 % (36.0-47.0) 30.7 % (36.0-47.0) Mean Corpuscular Volume 70 fL (79-100) 71 fL (79-100) Mean Corpuscular Hemoglobin 23 pg (25-35) 23 pg (25-35) Mean Corpuscular Hemoglobin Concent 32 g/dL (31-37) 32 g/dL (31-37) Red Cell Distribution Width 16.7 % (11.5-14.5) 16.4 % (11.5-14.5) Platelet Count 237 x10^3/uL (140-400) 237 x10^3/uL (140-400) Neutrophils (%) (Auto) 59 % (31-73) 75 % (31-73) Lymphocytes (%) (Auto) 29 % (24-48) 16 % (24-48) Monocytes (%) (Auto) 7 % (0-9) 7 % (0-9) Eosinophils (%) (Auto) 5 % (0-3) 2 % (0-3) Basophils (%) (Auto) 1 % (0-3) 0 % (0-3) Neutrophils # (Auto) 4.0 x10^3uL (1.8-7.7) 6.9 x10^3uL (1.8-7.7) Lymphocytes # (Auto) 1.9 x10^3/uL (1.0-4.8) 1.5 x10^3/uL (1.0-4.8) Monocytes # (Auto) 0.5 x10^3/uL (0.0-1.1) 0.6 x10^3/uL (0.0-1.1) Eosinophils # (Auto) 0.3 x10^3/uL (0.0-0.7) 0.2 x10^3/uL (0.0-0.7) Basophils # (Auto) 0.0 x10^3/uL (0.0-0.2) 0.0 x10^3/uL (0.0-0.2) Sodium Level 137 mmol/L (136-145) 137 mmol/L (136-145) Potassium Level 5.0 mmol/L (3.5-5.1) 6.0 mmol/L (3.5-5.1) Chloride Level 105 mmol/L (98-107) 103 mmol/L (98-107) Carbon Dioxide Level 25 mmol/L (21-32) 27 mmol/L (21-32) Anion Gap 7 (6-14) 7 (6-14) Blood Urea Nitrogen 29 mg/dL (7-20) 31 mg/dL (7-20) Creatinine 1.4 mg/dL (0.6-1.0) 1.4 mg/dL (0.6-1.0) Estimated GFR (Cockcroft-Gault) 43.9 43.9 Glucose Level 91 mg/dL (70-99) 90 mg/dL (70-99) Calcium Level 8.7 mg/dL (8.5-10.1) 8.9 mg/dL (8.5-10.1) Laboratory Tests Test 12/03/16 04:30 White Blood Count 9.2 x10^3/uL (4.0-11.0) Red Blood Count 4.35 x10^6/uL (3.50-5.40) Hemoglobin 9.8 g/dL (12.0-15.5) Hematocrit 30.7 % (36.0-47.0) Mean Corpuscular Volume 71 fL (79-100) Mean Corpuscular Hemoglobin 23 pg (25-35) Mean Corpuscular Hemoglobin Concent 32 g/dL (31-37) Red Cell Distribution Width 16.4 % (11.5-14.5) Platelet Count 237 x10^3/uL (140-400) Neutrophils (%) (Auto) 75 % (31-73) Lymphocytes (%) (Auto) 16 % (24-48) Monocytes (%) (Auto) 7 % (0-9) Eosinophils (%) (Auto) 2 % (0-3) Basophils (%) (Auto) 0 % (0-3) Neutrophils # (Auto) 6.9 x10^3uL (1.8-7.7) Lymphocytes # (Auto) 1.5 x10^3/uL (1.0-4.8) Monocytes # (Auto) 0.6 x10^3/uL (0.0-1.1) Eosinophils # (Auto) 0.2 x10^3/uL (0.0-0.7) Basophils # (Auto) 0.0 x10^3/uL (0.0-0.2) Sodium Level 137 mmol/L (136-145) Potassium Level 6.0 mmol/L (3.5-5.1) Chloride Level 103 mmol/L (98-107) Carbon Dioxide Level 27 mmol/L (21-32) Anion Gap 7 (6-14) Blood Urea Nitrogen 31 mg/dL (7-20) Creatinine 1.4 mg/dL (0.6-1.0) Estimated GFR (Cockcroft-Gault) 43.9 Glucose Level 90 mg/dL (70-99) Calcium Level 8.9 mg/dL (8.5-10.1) Microbiology 11/24/16 Urine Culture - Final, Complete 11/24/16 Urine Culture Result 1 (MARION) - Final, Complete 11/24/16 Antimicrobic Susceptibility - Final, Complete Medications Current Medications Ondansetron HCl (Zofran) 4 mg PRN Q6HRS PRN IV NAUSEA/VOMITING 1ST CHOICE; Start 11/24/16 at 13:30 Prochlorperazine Edisylate (Compazine) 10 mg PRN Q6HRS PRN IV NAUSEA/VOMITING, 2ND CHOICE; Start 11/24/16 at 13:30 Prochlorperazine (Compazine) 25 mg PRN Q12HR PRN TN NAUSEA/VOMITING; Start 12/31 at 13:30 Morphine Sulfate 1 mg PRN Q2HR PRN IV PAIN; Start 11/24/16 at 13:30 Acetaminophen/ Hydrocodone Bitart (Lortab 5/325) 1 tab PRN Q4HRS PRN PO MILD PAIN, 2ND CHOICE Last administered on 12/02/16 18:24; Start 11/24/16 at 13:30 Acetaminophen (Tylenol) 650 mg PRN Q6HRS PRN PO Headaches, Temp > 101.5F; Start 11/24/16 at 13:30 Ibuprofen (Motrin) 400 mg PRN Q6HRS PRN PO MILD PAIN; Start 11/24/16 at 13:30; Status Cancel Docusate Sodium (Colace) 100 mg BID PO Last administered on 12/01/16 08:59; Start 11/24/16 at 14:00 Magnesium Hydroxide (Milk Of Magnesia) 2,400 mg PRN Q12HR PRN PO CONSTIPATION; Start 11/24/16 at 13:30 Lactulose 20 gm PRN Q12HR PRN PO CONSTIPATION Last administered on 12/03/16 08 :46; Start 11/24/16 at 13:30 Bisacodyl (Dulcolax Supp) 10 mg PRN DAILY PRN TN CONSTIPATION; Start 11/24/16 at 13:30 Enoxaparin Sodium (Lovenox 40mg Syringe) 40 mg DAILY16 SQ Last administered on 11/25/16 15:06; Start 11/24/16 at 16:00; Stop 11/26/16 at 13:47; Status DC Ceftriaxone Sodium 1 gm/ Sodium Chloride 50 ml @ 100 mls/hr Q24H IV Last administered on 11/30/16 14:18; Start 11/24/16 at 14:00; Stop 12/01/16 at 15:07 ; Status DC Metronidazole (Flagyl) 500 mg Q8HRS PO Last administered on 11/24/16 15:26; Start 11/24/16 at 14:00; Stop 11/27/16 at 11:18; Status DC Allopurinol (Zyloprim) 100 mg DAILY PO Last administered on 12/03/16 08:45; Start 11/24/16 at 14:00 Amlodipine Besylate (Norvasc) 10 mg DAILY PO Last administered on 12/03/16 08: 46; Start 11/24/16 at 14:00 Furosemide (Lasix) 60 mg DAILY PO Last administered on 11/24/16 15:26; Start 11/24/16 at 14:00; Stop 11/25/16 at 21:04; Status DC Labetalol HCl (Trandate) 200 mg BID PO Last administered on 12/03/16 08:46; Start 11/24/16 at 14:00 Levothyroxine Sodium (Synthroid) 75 mcg DAILY07 PO Last administered on 15:25; Start 11/24/16 at 14:00; Stop 11/27/16 at 11:18; Status DC Mirtazapine (Remeron) 7.5 mg QHS PO Last administered on 12/02/16 21:18; Start 11/24/16 at 21:00 Atorvastatin Calcium (Lipitor) 10 mg QHS PO Last administered on 12/02/16 21: 18; Start 11/24/16 at 21:00 Labetalol HCl (Normodyne) 10 mg PRN Q2HR PRN IVP HYPERTENSION, SEE COMMENTS Last administered on 11/26/16 23:27; Start 11/24/16 at 13:45 Aspirin (Comfort Aspirin) 325 mg [id number] PO Last administered on 12/03/16 08: 46; Start 11/24/16 at 13:45 Sodium Chloride 1,000 ml @ 75 mls/hr [id number] IV Last administered on 03:00; Start 11/25/16 at 11:00; Stop 11/28/16 at 09:37; Status DC Regadenoson (Lexiscan) 0.4 mg 1X ONCE IV Last administered on 11/26/16 10:38 ; Start 11/26/16 at 08:30; Stop 11/26/16 at 08:31; Status DC Hydralazine HCl (Apresoline) 10 mg PRN Q4HRS PRN IVP ELEVATED BP, SEE COMMENTS Last administered on 12/02/16 14:11; Start 11/26/16 at 08:45 Enoxaparin Sodium (Lovenox 30mg Syringe) 30 mg DAILY16 SQ Last administered on 11/30/16 14:18; Start 11/26/16 at 16:00; Stop 12/01/16 at 09:44; Status DC Ondansetron HCl (Zofran) 4 mg PRN Q6HRS PRN IV NAUSEA/VOMITING; Start 11/27/16 at 08:00; Stop 11/27/16 at 18:00; Status DC Fentanyl Citrate (Fentanyl 2ml Vial) 25 mcg PRN Q5MIN PRN IV MILD PAIN; Start 11/27/16 at 08:00; Stop 11/27/16 at 18:00; Status DC Fentanyl Citrate (Fentanyl 2ml Vial) 50 mcg PRN Q5MIN PRN IV MODERATE PAIN; Start 11/27/16 at 08:00; Stop 11/27/16 at 18:00; Status DC Morphine Sulfate 1 mg PRN Q10MIN PRN IV SEVERE PAIN; Start 11/27/16 at 08:00; Stop 11/27/16 at 18:00; Status DC Ringer's Solution 1,000 ml @ 30 mls/hr Q24H IV Last administered on 11/27/16 09:11; Start 11/27/16 at 07:52; Stop 11/27/16 at 19:51; Status DC Lidocaine HCl 2 ml PRN 1X PRN ID PRIOR TO IV START; Start 11/27/16 at 08:00; Stop 11/27/16 at 18:00; Status DC Hydromorphone HCl (Dilaudid) 0.5 mg PRN Q10MIN PRN IV SEV PAIN, Second choice; Start 11/27/16 at 08:00; Stop 11/27/16 at 18:00; Status DC Prochlorperazine Edisylate (Compazine) 5 mg PACU PRN PRN IV NAUSEA, MRX1; Start 11/27/16 at 08:00; Stop 11/27/16 at 18:00; Status DC Levothyroxine Sodium 37.5 mcg/ Sodium Chloride 5 ml @ 100 mls/hr DAILY IVP Last administered on 11/28/16 09:07; Start 11/27/16 at 12:00; Stop 11/28/16 at 11:58; Status DC Clonidine HCl (Catapres Tts-1) 1 patch WEEKLY TD Last administered on 10:09; Start 11/28/16 at 09:45 Enalaprilat (Vasotec) 1.25 mg Q6HRS IV ; Start 11/28/16 at 09:45; Stop 11/28/16 at 11:58; Status DC Levothyroxine Sodium (Synthroid) 75 mcg DAILY07 PO Last administered on 08:45; Start 11/29/16 at 07:00 Barium Sulfate (Varibar Thin Liquid Apple) 148 gm 1X ONCE PO Last administered on 11/28/16 13:09; Start 11/28/16 at 12:15; Stop 11/28/16 at 12:16 ; Status DC Scopolamine (Transderm-Scop) 1 patch Q72H TD Last administered on 12/01/16 21: 49; Start 11/28/16 at 20:15 Metoprolol Tartrate (Lopressor) 5 mg Q6HRS IVP ; Start 12/01/16 at 16:00; Stop 12/01/16 at 17:50; Status DC Sodium Chloride (Normal Saline Flush) 3 ml QSHIFT PRN IV AFTER MEDS AND BLOOD DRAWS; Start 12/01/16 at 16:00 Cefazolin Sodium 1 gm/Sodium Chloride 50 ml @ 100 mls/hr 1X ONCE IV Last administered on 12/02/16 12:31; Start 12/02/16 at 12:00; Stop 12/02/16 at 12:29 ; Status DC Metoprolol Tartrate (Lopressor) 5 mg Q6HRS PRN IVP HYPERTENSION, SEE COMMENTS; Start 12/01/16 at 17:45 Propofol 20 ml @ As Directed STK-MED ONCE IV ; Start 12/02/16 at 12:43; Stop at 12:44; Status DC Lidocaine HCl (Lidocaine Pf 2% Vial) 5 ml STK-MED ONCE .ROUTE ; Start 12/02/16 at 12:43; Stop 12/02/16 at 12:44; Status DC Ringer's Solution 1,000 ml @ 30 mls/hr Q24H IV Last administered on 12/02/16t 12:30; Start 12/02/16 at 12:30 Sodium Polystyrene Sulfonate (Kayexalate) 15 gm 1X ONCE PO Last administered on 12/03/16 08:46; Start 12/03/16 at 08:30; Stop 12/03/16 at 08:31; Status DC Albuterol Sulfate (Ventolin Neb Soln) 2.5 mg 1X ONCE NEB ; Start 12/03/16 at 08 :30; Stop 12/03/16 at 08:31; Status DC Active Scripts Active Flagyl (Metronidazole) 500 Mg Tablet 500 Mg PO Q8HRS Reported Lasix (Furosemide) 20 Mg Tablet 3 Tab PO DAILY Simvastatin 20 Mg Tablet 1 Tab PO QHS Mirtazapine 7.5 Mg Tablet 7.5 Mg PO DAILY Allopurinol 100 Mg Tablet 1 Tab PO DAILY Levothyroxine Sodium 75 Mcg Tablet 1 Tab PO DAILY Labetalol Hcl 200 Mg Tablet 200 Mg PO BID Norvasc (Amlodipine Besylate) 10 Mg Tablet 10 Mg PO DAILY Vitals/I & O Vital Sign - Last 24 Hours 12/02/16 12/02/16 12/02/16 12/02/16 12:13 13:16 13:31 13:47 Temp 98.8 98.6 98.8 98.6 Pulse 74 67 78 78 Resp 16 18 18 B/P (MAP) 201/89 198/72 200/85 Pulse Ox 97 98 97 96 O2 Delivery Nasal Cannula Nasal Cannula Room Air O2 Flow Rate 3 3 12/02/16 12/02/16 12/02/16 12/02/16 14:11 14:11 14:11 14:12 Pulse 78 78 78 Resp 24 B/P (MAP) 200/85 200/85 200/85 O2 Delivery Room Air 12/02/16 12/02/16 12/02/1618/17 14:19 15:10 18:24 19:05 Temp 98.5 98.5 Pulse 78 70 Resp 20 22 18 B/P (MAP) 215/90 (131) 130/61 (84) Pulse Ox 96 96 95 O2 Delivery Room Air Room Air O2 Flow Rate 3.0 12/02/16 12/02/16 12/02/16 12/02/16 19:35 21:00 21:17 22:35 Temp 98.5 98.5 Pulse 70 78 Resp 18 B/P (MAP) 133/64 163/72 (102) Pulse Ox 96 O2 Delivery Room Air Room Air Room Air 12/03/16 12/03/16 12/03/16 12/03/16 02:55 07:50 08:00 08:23 Temp 98.4 98.6 98.4 98.6 Pulse 75 Resp 18 19 B/P (MAP) 127/60 (82) 145/66 (92) Pulse Ox 96 92 91 O2 Delivery Room Air Room Air Room Air Room Air 12/03/16 12/03/16 12/03/16 08:46 08:46 10:28 Temp 98.6 98.6 Pulse 75 75 66 Resp 18 B/P (MAP) 145/66 145/66 128/58 (81) Pulse Ox 95 O2 Delivery Room Air RICHARD WYNN MD Dec 03, 2016 12:01
--- NOTE | 2016-12-03 12:52 | CARD ---
APPROVED REPORT EXAM: Transesophageal echocardiogram with color flow Doppler. INDICATION CVA/TIA Reason For Test : Rule out cardiac source of emboli. PROCEDURE After obtaining informed consent, patient underwent transesophageal echo in the PACU. Type of Sedation : Conscious Sedation Sedation was provided by anesthesiologist, see EMR for medications administered. Sedation was achieved with Propofol 90mg intravenously. Transesophageal probe was inserted and advanced into esophagus by Rudi Brown MD. Throughout the procedure, the blood pressure, pulse oximetry, cardiac rhythm, and rate were monitored . The patient tolerated the procedure without adverse effects. Recovery from conscious sedation was une ventful and vital signs were stable. LEFT VENTRICLE The left ventricle is normal size. There is mild concentric left ventricular hypertrophy. The left ve ntricular systolic function is normal and the ejection fraction is within normal range. The Ejection Fraction is 65%. There is normal LV segmental wall motion. No thrombus seen in the LV RIGHT VENTRICLE The right ventricle is normal size. There is normal right ventricular wall thickness. The right ventr icular systolic function is normal. ATRIA The left atrium size is normal. The right atrium size is normal. The interatrial septum is intact wit h no evidence for an atrial septal defect or patent foramen ovale as noted on 2-D or Doppler imaging. There is no thrombus noted in the left atrial appendage. AORTIC VALVE The aortic valve is mildly sclerotic. The aortic valve is trileaflet. Doppler and Color Flow revealed trace aortic regurgitation. There is no significant aortic valvular stenosis. MITRAL VALVE The mitral valve leaflets are minimally thickened. There is no evidence of mitral valve prolapse. The re is no mitral valve stenosis. Doppler and Color Flow revealed trace mitral regurgitation. TRICUSPID VALVE Doppler and Color Flow revealed trace tricuspid regurgitation. There is no pulmonary hypertension. PULMONIC VALVE The pulmonary valve is not well visualized but appears to open adequately. Doppler and Color Flow rev ealed no pulmonic valvular regurgitation. GREAT VESSELS The aortic root is normal in size. The ascending aorta is normal in size. The IVC is normal in size a nd collapses >50% with inspiration. Critical Notification Critical Value: No <Conclusion> The left ventricular systolic function is normal and the ejection fraction is within normal range. The Ejection Fraction is 65%. No thrombus seen in the LV The left atrium size is normal. The right atrium size is normal. There is no thrombus noted in the left atrial appendage. The interatrial septum is intact with no evidence for an atrial septal defect or patent foramen ovale as noted on 2-D or Doppler imaging. The aortic valve is mildly sclerotic. The aortic valve is trileaflet. Doppler and Color Flow revealed trace aortic regurgitation. The mitral valve leaflets are minimally thickened. Doppler and Color Flow revealed trace mitral regurgitation. Doppler and Color Flow revealed trace tricuspid regurgitation. There is no pulmonary hypertension. The pulmonary valve is not well visualized but appears to open adequately. Doppler and Color Flow revealed no pulmonic valvular regurgitation. The ascending aorta is normal in size. The aortic root is normal in size. No thrombus seen in any of the chambers.
[2016-12-03 14:41] VITALS: BP 156/72
[2016-12-03 19:10] VITALS: BP 141/64
[2016-12-03] MEDS: MIRTAZAPINE 7.5 MG TABLET. PO SCH (20:25)
[2016-12-03] MEDS: ATORVASTATIN CALCIUM 10 MG TABLET. PO SCH (20:25)
[2016-12-03] MEDS: HYDROcodone/APAP 5/325MG 1 TAB TABLET PO PRN (20:26)
[2016-12-03 22:45] VITALS: BP 129/61
[2016-12-04 02:50] VITALS: BP 124/58
[2016-12-04 05:18] LABS: BASO % 0 % (0-3); EOS % 2 % (0-3); HEMOGLOBIN 9.5 g/dL (12.0-15.5); LYMPH # 1.2 x10^3/uL (1.0-4.8); LYMPH % 15 % (24-48); MEAN CORPUSCULAR HEMOGLOBIN 23 pg (25-35); MEAN CORPUSCULAR HGB CONC 33 g/dL (31-37); MEAN CORPUSCULAR VOLUME 70 fL (79-100); MONO % 8 % (0-9); NEUT % 76 % (31-73); PLATELET COUNT 220 x10^3/uL (140-400); RED BLOOD COUNT 4.14 x10^6/uL (3.50-5.40); RED CELL DISTRIBUTION WIDTH 15.9 % (11.5-14.5); WHITE BLOOD COUNT 8.6 x10^3/uL (4.0-11.0)
[2016-12-04 05:39] LABS: CALCIUM 8.2 mg/dL (8.5-10.1); CREATININE 1.6 mg/dL (0.6-1.0); GFR 37.6; POTASSIUM 4.5 mmol/L (3.5-5.1)
[2016-12-04 07:00] VITALS: BP 122/62
[2016-12-04] MEDS: ASPIRIN 325 MG TABLET PO SCH (07:44)
[2016-12-04] MEDS: LABETALOL HCL 200 MG TABLET PO SCH (07:44)
[2016-12-04] MEDS: LEVOTHYROXINE 75 MCG TABLET PO SCH (07:44)
[2016-12-04] MEDS: ALLOPURINOL 100 MG TABLET. PO SCH (07:44)
[2016-12-04] MEDS: amLODIPine BESYLATE 10 MG TABLET PO SCH (07:45)
[2016-12-04] MEDS: DOCUSATE SODIUM 100 MG CAPSULE. PO SCH (07:45)
[2016-12-04 08:25] LABS: HYPOCHROMIA MOD; PLT ESTIMATE ADEQUATE (ADEQUATE)
[2016-12-04 08:26] LABS: MICROCYTOSIS MOD
--- NOTE | 2016-12-04 10:15 | PDOC ---
Subjective: Subjective: No complaints. Objective: Objective: No PEG concerns per RN, possible DC to rehab today. Vital Signs: Vital Signs Date Time Temp Pulse Resp B/P (MAP) Pulse Ox O2 Delivery O2 Flow Rate FiO2 12/04/16 08:00 Room Air 3.0 12/04/16 07:45 77 122/62 12/04/16 07:00 99.0 19 92 99.0 Labs: Laboratory Tests Test 12/03/16 14:50 12/04/16 03:55 Potassium Level 5.1 mmol/L 4.5 mmol/L White Blood Count 8.6 x10^3/uL Red Blood Count 4.14 x10^6/uL Hemoglobin 9.5 g/dL Hematocrit 29.0 % Mean Corpuscular Volume 70 fL Mean Corpuscular Hemoglobin 23 pg Mean Corpuscular Hemoglobin Concent 33 g/dL Red Cell Distribution Width 15.9 % Platelet Count 220 x10^3/uL Neutrophils (%) (Auto) 76 % Lymphocytes (%) (Auto) 15 % Monocytes (%) (Auto) 8 % Eosinophils (%) (Auto) 2 % Basophils (%) (Auto) 0 % Neutrophils # (Auto) 6.5 x10^3uL Lymphocytes # (Auto) 1.2 x10^3/uL Monocytes # (Auto) 0.6 x10^3/uL Eosinophils # (Auto) 0.1 x10^3/uL Basophils # (Auto) 0.0 x10^3/uL Platelet Estimate Adequate Hypochromasia Mod Microcytosis Mod Sodium Level 135 mmol/L Chloride Level 99 mmol/L Carbon Dioxide Level 28 mmol/L Anion Gap 8 Blood Urea Nitrogen 36 mg/dL Creatinine 1.6 mg/dL Estimated GFR (Cockcroft-Gault) 37.6 Glucose Level 103 mg/dL Calcium Level 8.2 mg/dL PE: GEN: NAD LUNGS: clear HEART: RRR ABD: soft, non-tender, abd binder NEURO/PSYCH: A & O 3 A/P: S/p PEG 12/02/16 (s/p CVA w/ dysphagia) -- PEG functioning, DC per primary. If swallowing improves, PEG must stay in place x 4-6 weeks prior to removal. EDMOND RODRIGUEZ Dec 04, 2016 10:15
--- NOTE | 2016-12-04 10:30 | PDOC ---
PROGRESS NOTES Assessment Problems Medical Problems: (1) Acute on chronic congestive heart failure Status: Acute Acute 2 cm x 1 cm infarct in right [place]. Metabolic encephalopathy. 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 S/P PEG Plan Continue ASA 325 mg daily ( She did not take ASA before per her nurse).. Continue Lipitor HS.PEG planned for today ST/OT/PT Transfer to SNU/rehab Subjective No complaints Objective Vital Signs Date Time Temp Pulse Resp B/P (MAP) Pulse Ox O2 Delivery O2 Flow Rate FiO2 12/04/16 08:00 Room Air 3.0 12/04/16 07:45 77 122/62 12/04/16 07:00 99.0 19 92 99.0 PHYSICAL EXAM Alert. Oriented to time, place and person. PERRL. EOMI. CN: Mild dysarthria, otherwise no focal findings. Muscle tone: normal. Muscle strength: 4/5 DTR: 2+ Plantar reflex: flexor Gait: not examined in bed. Sensory exam: no abnormal findings. Right>left dysmetria Review of Relevant I have reviewed the following items hallie (where applicable) has been applied. Labs Laboratory Tests Test 12/03/16 04:30 12/03/16 14:50 12/04/16 03:55 White Blood Count 9.2 x10^3/uL (4.0-11.0) 8.6 x10^3/uL (4.0-11.0) Red Blood Count 4.35 x10^6/uL (3.50-5.40) 4.14 x10^6/uL (3.50-5.40) Hemoglobin 9.8 g/dL (12.0-15.5) 9.5 g/dL (12.0-15.5) Hematocrit 30.7 % (36.0-47.0) 29.0 % (36.0-47.0) Mean Corpuscular Volume 71 fL (79-100) 70 fL (79-100) Mean Corpuscular Hemoglobin 23 pg (25-35) 23 pg (25-35) Mean Corpuscular Hemoglobin Concent 32 g/dL (31-37) 33 g/dL (31-37) Red Cell Distribution Width 16.4 % (11.5-14.5) 15.9 % (11.5-14.5) Platelet Count 237 x10^3/uL (140-400) 220 x10^3/uL (140-400) Neutrophils (%) (Auto) 75 % (31-73) 76 % (31-73) Lymphocytes (%) (Auto) 16 % (24-48) 15 % (24-48) Monocytes (%) (Auto) 7 % (0-9) 8 % (0-9) Eosinophils (%) (Auto) 2 % (0-3) 2 % (0-3) Basophils (%) (Auto) 0 % (0-3) 0 % (0-3) Neutrophils # (Auto) 6.9 x10^3uL (1.8-7.7) 6.5 x10^3uL (1.8-7.7) Lymphocytes # (Auto) 1.5 x10^3/uL (1.0-4.8) 1.2 x10^3/uL (1.0-4.8) Monocytes # (Auto) 0.6 x10^3/uL (0.0-1.1) 0.6 x10^3/uL (0.0-1.1) Eosinophils # (Auto) 0.2 x10^3/uL (0.0-0.7) 0.1 x10^3/uL (0.0-0.7) Basophils # (Auto) 0.0 x10^3/uL (0.0-0.2) 0.0 x10^3/uL (0.0-0.2) Sodium Level 137 mmol/L (136-145) 135 mmol/L (136-145) Potassium Level 6.0 mmol/L (3.5-5.1) 5.1 mmol/L (3.5-5.1) 4.5 mmol/L (3.5-5.1) Chloride Level 103 mmol/L (98-107) 99 mmol/L (98-107) Carbon Dioxide Level 27 mmol/L (21-32) 28 mmol/L (21-32) Anion Gap 7 (6-14) 8 (6-14) Blood Urea Nitrogen 31 mg/dL (7-20) 36 mg/dL (7-20) Creatinine 1.4 mg/dL (0.6-1.0) 1.6 mg/dL (0.6-1.0) Estimated GFR (Cockcroft-Gault) 43.9 37.6 Glucose Level 90 mg/dL (70-99) 103 mg/dL (70-99) Calcium Level 8.9 mg/dL (8.5-10.1) 8.2 mg/dL (8.5-10.1) Platelet Estimate Adequate (ADEQUATE) Hypochromasia Mod Microcytosis Mod Laboratory Tests Test 12/03/16 14:50 12/04/16 03:55 Potassium Level 5.1 mmol/L (3.5-5.1) 4.5 mmol/L (3.5-5.1) White Blood Count 8.6 x10^3/uL (4.0-11.0) Red Blood Count 4.14 x10^6/uL (3.50-5.40) Hemoglobin 9.5 g/dL (12.0-15.5) Hematocrit 29.0 % (36.0-47.0) Mean Corpuscular Volume 70 fL (79-100) Mean Corpuscular Hemoglobin 23 pg (25-35) Mean Corpuscular Hemoglobin Concent 33 g/dL (31-37) Red Cell Distribution Width 15.9 % (11.5-14.5) Platelet Count 220 x10^3/uL (140-400) Neutrophils (%) (Auto) 76 % (31-73) Lymphocytes (%) (Auto) 15 % (24-48) Monocytes (%) (Auto) 8 % (0-9) Eosinophils (%) (Auto) 2 % (0-3) Basophils (%) (Auto) 0 % (0-3) Neutrophils # (Auto) 6.5 x10^3uL (1.8-7.7) Lymphocytes # (Auto) 1.2 x10^3/uL (1.0-4.8) Monocytes # (Auto) 0.6 x10^3/uL (0.0-1.1) Eosinophils # (Auto) 0.1 x10^3/uL (0.0-0.7) Basophils # (Auto) 0.0 x10^3/uL (0.0-0.2) Platelet Estimate Adequate (ADEQUATE) Hypochromasia Mod Microcytosis Mod Sodium Level 135 mmol/L (136-145) Chloride Level 99 mmol/L (98-107) Carbon Dioxide Level 28 mmol/L (21-32) Anion Gap 8 (6-14) Blood Urea Nitrogen 36 mg/dL (7-20) Creatinine 1.6 mg/dL (0.6-1.0) Estimated GFR (Cockcroft-Gault) 37.6 Glucose Level 103 mg/dL (70-99) Calcium Level 8.2 mg/dL (8.5-10.1) Microbiology 11/24/16 Urine Culture - Final, Complete 11/24/16 Urine Culture Result 1 (MARION) - Final, Complete 11/24/16 Antimicrobic Susceptibility - Final, Complete Medications Current Medications Ondansetron HCl (Zofran) 4 mg PRN Q6HRS PRN IV NAUSEA/VOMITING 1ST CHOICE; Start 11/24/16 at 13:30 Prochlorperazine Edisylate (Compazine) 10 mg PRN Q6HRS PRN IV NAUSEA/VOMITING, 2ND CHOICE; Start 11/24/16 at 13:30 Prochlorperazine (Compazine) 25 mg PRN Q12HR PRN MO NAUSEA/VOMITING; Start 12/31 at 13:30 Morphine Sulfate 1 mg PRN Q2HR PRN IV PAIN; Start 11/24/16 at 13:30 Acetaminophen/ Hydrocodone Bitart (Lortab 5/325) 1 tab PRN Q4HRS PRN PO MILD PAIN, 2ND CHOICE Last administered on 12/03/16 20:26; Start 11/24/16 at 13:30 Acetaminophen (Tylenol) 650 mg PRN Q6HRS PRN PO Headaches, Temp > 101.5F; Start 11/24/16 at 13:30 Ibuprofen (Motrin) 400 mg PRN Q6HRS PRN PO MILD PAIN; Start 11/24/16 at 13:30; Status Cancel Docusate Sodium (Colace) 100 mg BID PO Last administered on 12/04/16 07:45; Start 11/24/16 at 14:00 Magnesium Hydroxide (Milk Of Magnesia) 2,400 mg PRN Q12HR PRN PO CONSTIPATION; Start 11/24/16 at 13:30 Lactulose 20 gm PRN Q12HR PRN PO CONSTIPATION Last administered on 12/03/16 08 :46; Start 11/24/16 at 13:30 Bisacodyl (Dulcolax Supp) 10 mg PRN DAILY PRN MO CONSTIPATION; Start 11/24/16 at 13:30 Enoxaparin Sodium (Lovenox 40mg Syringe) 40 mg DAILY16 SQ Last administered on 11/25/16 15:06; Start 11/24/16 at 16:00; Stop 11/26/16 at 13:47; Status DC Ceftriaxone Sodium 1 gm/ Sodium Chloride 50 ml @ 100 mls/hr Q24H IV Last administered on 11/30/16 14:18; Start 11/24/16 at 14:00; Stop 12/01/16 at 15:07 ; Status DC Metronidazole (Flagyl) 500 mg Q8HRS PO Last administered on 11/24/16 15:26; Start 11/24/16 at 14:00; Stop 11/27/16 at 11:18; Status DC Allopurinol (Zyloprim) 100 mg DAILY PO Last administered on 12/04/16 07:44; Start 11/24/16 at 14:00 Amlodipine Besylate (Norvasc) 10 mg DAILY PO Last administered on 12/04/16 07: 45; Start 11/24/16 at 14:00 Furosemide (Lasix) 60 mg DAILY PO Last administered on 11/24/16 15:26; Start 11/24/16 at 14:00; Stop 11/25/16 at 21:04; Status DC Labetalol HCl (Trandate) 200 mg BID PO Last administered on 12/04/16 07:44; Start 11/24/16 at 14:00 Levothyroxine Sodium (Synthroid) 75 mcg DAILY07 PO Last administered on 15:25; Start 11/24/16 at 14:00; Stop 11/27/16 at 11:18; Status DC Mirtazapine (Remeron) 7.5 mg QHS PO Last administered on 12/03/16 20:25; Start 11/24/16 at 21:00 Atorvastatin Calcium (Lipitor) 10 mg QHS PO Last administered on 12/03/16 20: 25; Start 11/24/16 at 21:00 Labetalol HCl (Normodyne) 10 mg PRN Q2HR PRN IVP HYPERTENSION, SEE COMMENTS Last administered on 11/26/16 23:27; Start 11/24/16 at 13:45 Aspirin (Comfort Aspirin) 325 mg [id number] PO Last administered on 12/04/16 07: 44; Start 11/24/16 at 13:45 Sodium Chloride 1,000 ml @ 75 mls/hr [id number] IV Last administered on 03:00; Start 11/25/16 at 11:00; Stop 11/28/16 at 09:37; Status DC Regadenoson (Lexiscan) 0.4 mg 1X ONCE IV Last administered on 11/26/16 10:38 ; Start 11/26/16 at 08:30; Stop 11/26/16 at 08:31; Status DC Hydralazine HCl (Apresoline) 10 mg PRN Q4HRS PRN IVP ELEVATED BP, SEE COMMENTS Last administered on 12/02/16 14:11; Start 11/26/16 at 08:45 Enoxaparin Sodium (Lovenox 30mg Syringe) 30 mg DAILY16 SQ Last administered on 11/30/16 14:18; Start 11/26/16 at 16:00; Stop 12/01/16 at 09:44; Status DC Ondansetron HCl (Zofran) 4 mg PRN Q6HRS PRN IV NAUSEA/VOMITING; Start 11/27/16 at 08:00; Stop 11/27/16 at 18:00; Status DC Fentanyl Citrate (Fentanyl 2ml Vial) 25 mcg PRN Q5MIN PRN IV MILD PAIN; Start 11/27/16 at 08:00; Stop 11/27/16 at 18:00; Status DC Fentanyl Citrate (Fentanyl 2ml Vial) 50 mcg PRN Q5MIN PRN IV MODERATE PAIN; Start 11/27/16 at 08:00; Stop 11/27/16 at 18:00; Status DC Morphine Sulfate 1 mg PRN Q10MIN PRN IV SEVERE PAIN; Start 11/27/16 at 08:00; Stop 11/27/16 at 18:00; Status DC Ringer's Solution 1,000 ml @ 30 mls/hr Q24H IV Last administered on 11/27/16 09:11; Start 11/27/16 at 07:52; Stop 11/27/16 at 19:51; Status DC Lidocaine HCl 2 ml PRN 1X PRN ID PRIOR TO IV START; Start 11/27/16 at 08:00; Stop 11/27/16 at 18:00; Status DC Hydromorphone HCl (Dilaudid) 0.5 mg PRN Q10MIN PRN IV SEV PAIN, Second choice; Start 11/27/16 at 08:00; Stop 11/27/16 at 18:00; Status DC Prochlorperazine Edisylate (Compazine) 5 mg PACU PRN PRN IV NAUSEA, MRX1; Start 11/27/16 at 08:00; Stop 11/27/16 at 18:00; Status DC Levothyroxine Sodium 37.5 mcg/ Sodium Chloride 5 ml @ 100 mls/hr DAILY IVP Last administered on 11/28/16 09:07; Start 11/27/16 at 12:00; Stop 11/28/16 at 11:58; Status DC Clonidine HCl (Catapres Tts-1) 1 patch WEEKLY TD Last administered on 10:09; Start 11/28/16 at 09:45 Enalaprilat (Vasotec) 1.25 mg Q6HRS IV ; Start 11/28/16 at 09:45; Stop 11/28/16 at 11:58; Status DC Levothyroxine Sodium (Synthroid) 75 mcg DAILY07 PO Last administered on 07:44; Start 11/29/16 at 07:00 Barium Sulfate (Varibar Thin Liquid Apple) 148 gm 1X ONCE PO Last administered on 11/28/16 13:09; Start 11/28/16 at 12:15; Stop 11/28/16 at 12:16 ; Status DC Scopolamine (Transderm-Scop) 1 patch Q72H TD Last administered on 12/01/16 21: 49; Start 11/28/16 at 20:15 Metoprolol Tartrate (Lopressor) 5 mg Q6HRS IVP ; Start 12/01/16 at 16:00; Stop 12/01/16 at 17:50; Status DC Sodium Chloride (Normal Saline Flush) 3 ml QSHIFT PRN IV AFTER MEDS AND BLOOD DRAWS; Start 12/01/16 at 16:00 Cefazolin Sodium 1 gm/Sodium Chloride 50 ml @ 100 mls/hr 1X ONCE IV Last administered on 12/02/16 12:31; Start 12/02/16 at 12:00; Stop 12/02/16 at 12:29 ; Status DC Metoprolol Tartrate (Lopressor) 5 mg Q6HRS PRN IVP HYPERTENSION, SEE COMMENTS; Start 12/01/16 at 17:45 Propofol 20 ml @ As Directed STK-MED ONCE IV ; Start 12/02/16 at 12:43; Stop at 12:44; Status DC Lidocaine HCl (Lidocaine Pf 2% Vial) 5 ml STK-MED ONCE .ROUTE ; Start 12/02/16 at 12:43; Stop 12/02/16 at 12:44; Status DC Ringer's Solution 1,000 ml @ 30 mls/hr Q24H IV Last administered on 12/02/16 12:30; Start 12/02/16 at 12:30; Stop 12/03/16 at 15:54; Status DC Sodium Polystyrene Sulfonate (Kayexalate) 15 gm 1X ONCE PO Last administered on 12/03/16 08:46; Start 12/03/16 at 08:30; Stop 12/03/16 at 08:31; Status DC Albuterol Sulfate (Ventolin Neb Soln) 2.5 mg 1X ONCE NEB Last administered on 12/03/16 08:23; Start 12/03/16 at 08:30; Stop 12/03/16 at 08:31; Status DC Active Scripts Active Flagyl (Metronidazole) 500 Mg Tablet 500 Mg PO Q8HRS Reported Lasix (Furosemide) 20 Mg Tablet 3 Tab PO DAILY Simvastatin 20 Mg Tablet 1 Tab PO QHS Mirtazapine 7.5 Mg Tablet 7.5 Mg PO DAILY Allopurinol 100 Mg Tablet 1 Tab PO DAILY Levothyroxine Sodium 75 Mcg Tablet 1 Tab PO DAILY Labetalol Hcl 200 Mg Tablet 200 Mg PO BID Norvasc (Amlodipine Besylate) 10 Mg Tablet 10 Mg PO DAILY Vitals/I & O Vital Sign - Last 24 Hours 12/03/16 12/03/16 12/03/16 12/03/16 14:41 19:10 20:00 20:26 Temp 98.4 98.2 98.4 98.2 Pulse 79 77 Resp 20 18 B/P (MAP) 156/72 (100) 141/64 (89) Pulse Ox 96 95 95 O2 Delivery Room Air Room Air Room Air Room Air 12/03/16 12/03/16 12/04/16 12/04/16 20:27 22:45 02:50 07:00 Temp 98.6 98.8 99.0 98.6 98.8 99.0 Pulse 77 76 81 86 Resp 18 18 19 B/P (MAP) 141/64 129/61 (83) 124/58 (80) 122/62 (82) Pulse Ox 95 93 92 O2 Delivery Room Air Room Air Room Air 12/04/16 12/04/16 12/04/16 07:44 07:45 08:00 Pulse 85 77 B/P (MAP) 122/62 122/62 O2 Delivery Room Air O2 Flow Rate 3.0 RICHARD WYNN MD Dec 04, 2016 10:30
[2016-12-04 11:00] VITALS: BP 109/53
--- NOTE | 2016-12-04 11:38 | PDOC ---
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 Recent trichomoniasis Hx CHF, echo 10/31 HTN, uncontrolled Microcytic anemia [place] Creat 1.6, unknown if CKD Carotid atherosclerosis Persistent dysphagia History of Present Illness History of Present Illness Patient sitting up in bed interacting with nurse and healthcare team. Patient still has considerable dysphagia, but was able to communicate. Discussed with the patient the delay in discharge (orders placed 12/03/16) which was due to low K. Patient's serum K has increased to satisfactory level and patient indicated her desire [facility]. Vitals Vitals Vital Signs Date Time Temp Pulse Resp B/P (MAP) Pulse Ox O2 Delivery O2 Flow Rate FiO2 12/04/16 11:00 98.7 73 18 109/53 (71) 95 Room Air 98.7 12/04/16 08:00 3.0 Physical Exam Physical Exam Patient was sitting and conversational. Patient indicated comprehension and was responsive to questions. General: Alert, Oriented X3, Cooperative, No acute distress Heart: Regular rate, Normal S1, Normal S2 Lungs: Clear Abdomen: Normal bowel sounds, Soft, No tenderness, No masses Extremities: No clubbing, No edema, No tenderness/swelling Skin: No rashes, No breakdown, No significant lesion Labs LABS Laboratory Tests Test 12/03/16 14:50 12/04/16 03:55 Potassium Level 5.1 mmol/L (3.5-5.1) 4.5 mmol/L (3.5-5.1) White Blood Count 8.6 x10^3/uL (4.0-11.0) Red Blood Count 4.14 x10^6/uL (3.50-5.40) Hemoglobin 9.5 g/dL (12.0-15.5) Hematocrit 29.0 % (36.0-47.0) Mean Corpuscular Volume 70 fL (79-100) Mean Corpuscular Hemoglobin 23 pg (25-35) Mean Corpuscular Hemoglobin Concent 33 g/dL (31-37) Red Cell Distribution Width 15.9 % (11.5-14.5) Platelet Count 220 x10^3/uL (140-400) Neutrophils (%) (Auto) 76 % (31-73) Lymphocytes (%) (Auto) 15 % (24-48) Monocytes (%) (Auto) 8 % (0-9) Eosinophils (%) (Auto) 2 % (0-3) Basophils (%) (Auto) 0 % (0-3) Neutrophils # (Auto) 6.5 x10^3uL (1.8-7.7) Lymphocytes # (Auto) 1.2 x10^3/uL (1.0-4.8) Monocytes # (Auto) 0.6 x10^3/uL (0.0-1.1) Eosinophils # (Auto) 0.1 x10^3/uL (0.0-0.7) Basophils # (Auto) 0.0 x10^3/uL (0.0-0.2) Platelet Estimate Adequate (ADEQUATE) Hypochromasia Mod Microcytosis Mod Sodium Level 135 mmol/L (136-145) Chloride Level 99 mmol/L (98-107) Carbon Dioxide Level 28 mmol/L (21-32) Anion Gap 8 (6-14) Blood Urea Nitrogen 36 mg/dL (7-20) Creatinine 1.6 mg/dL (0.6-1.0) Estimated GFR (Cockcroft-Gault) 37.6 Glucose Level 103 mg/dL (70-99) Calcium Level 8.2 mg/dL (8.5-10.1) Review of Systems Review of Systems Patient indicated her feeding tube was working well and denied nausea/vomiting. Patient denied SOA or CP Assessment and Plan Assessmemt and Plan Problems Medical Problems: (1) Acute on chronic congestive heart failure Status: Acute Assessment: Acute Rt ros[place] infarct [place] occipital infarct Altered mental status UTI,acute bronchitis? Recent trichomoniasis Hx CHF, echo 10/31 HTN, uncontrolled Microcytic anemia [place] Creat 1.6, unknown if CKD Carotid atherosclerosis Persistent dysphagia Plan: 1. Continue home medications 2. Continue proper care of PEG tube 3. Discuss with patient the delay in discharge because of serum K 4. [facility] 12[facility]16 5. Ok with diet decided by [facility] Problems: Comment Review of Relevant I have reviewed the following items hallie (where applicable) has been applied. Labs Laboratory Tests Test 12/03/16 04:30 12/03/16 14:50 12/04/16 03:55 White Blood Count 9.2 x10^3/uL (4.0-11.0) 8.6 x10^3/uL (4.0-11.0) Red Blood Count 4.35 x10^6/uL (3.50-5.40) 4.14 x10^6/uL (3.50-5.40) Hemoglobin 9.8 g/dL (12.0-15.5) 9.5 g/dL (12.0-15.5) Hematocrit 30.7 % (36.0-47.0) 29.0 % (36.0-47.0) Mean Corpuscular Volume 71 fL (79-100) 70 fL (79-100) Mean Corpuscular Hemoglobin 23 pg (25-35) 23 pg (25-35) Mean Corpuscular Hemoglobin Concent 32 g/dL (31-37) 33 g/dL (31-37) Red Cell Distribution Width 16.4 % (11.5-14.5) 15.9 % (11.5-14.5) Platelet Count 237 x10^3/uL (140-400) 220 x10^3/uL (140-400) Neutrophils (%) (Auto) 75 % (31-73) 76 % (31-73) Lymphocytes (%) (Auto) 16 % (24-48) 15 % (24-48) Monocytes (%) (Auto) 7 % (0-9) 8 % (0-9) Eosinophils (%) (Auto) 2 % (0-3) 2 % (0-3) Basophils (%) (Auto) 0 % (0-3) 0 % (0-3) Neutrophils # (Auto) 6.9 x10^3uL (1.8-7.7) 6.5 x10^3uL (1.8-7.7) Lymphocytes # (Auto) 1.5 x10^3/uL (1.0-4.8) 1.2 x10^3/uL (1.0-4.8) Monocytes # (Auto) 0.6 x10^3/uL (0.0-1.1) 0.6 x10^3/uL (0.0-1.1) Eosinophils # (Auto) 0.2 x10^3/uL (0.0-0.7) 0.1 x10^3/uL (0.0-0.7) Basophils # (Auto) 0.0 x10^3/uL (0.0-0.2) 0.0 x10^3/uL (0.0-0.2) Sodium Level 137 mmol/L (136-145) 135 mmol/L (136-145) Potassium Level 6.0 mmol/L (3.5-5.1) 5.1 mmol/L (3.5-5.1) 4.5 mmol/L (3.5-5.1) Chloride Level 103 mmol/L (98-107) 99 mmol/L (98-107) Carbon Dioxide Level 27 mmol/L (21-32) 28 mmol/L (21-32) Anion Gap 7 (6-14) 8 (6-14) Blood Urea Nitrogen 31 mg/dL (7-20) 36 mg/dL (7-20) Creatinine 1.4 mg/dL (0.6-1.0) 1.6 mg/dL (0.6-1.0) Estimated GFR (Cockcroft-Gault) 43.9 37.6 Glucose Level 90 mg/dL (70-99) 103 mg/dL (70-99) Calcium Level 8.9 mg/dL (8.5-10.1) 8.2 mg/dL (8.5-10.1) Platelet Estimate Adequate (ADEQUATE) Hypochromasia Mod Microcytosis Mod Laboratory Tests Test 12/03/16 14:50 12/04/16 03:55 Potassium Level 5.1 mmol/L (3.5-5.1) 4.5 mmol/L (3.5-5.1) White Blood Count 8.6 x10^3/uL (4.0-11.0) Red Blood Count 4.14 x10^6/uL (3.50-5.40) Hemoglobin 9.5 g/dL (12.0-15.5) Hematocrit 29.0 % (36.0-47.0) Mean Corpuscular Volume 70 fL (79-100) Mean Corpuscular Hemoglobin 23 pg (25-35) Mean Corpuscular Hemoglobin Concent 33 g/dL (31-37) Red Cell Distribution Width 15.9 % (11.5-14.5) Platelet Count 220 x10^3/uL (140-400) Neutrophils (%) (Auto) 76 % (31-73) Lymphocytes (%) (Auto) 15 % (24-48) Monocytes (%) (Auto) 8 % (0-9) Eosinophils (%) (Auto) 2 % (0-3) Basophils (%) (Auto) 0 % (0-3) Neutrophils # (Auto) 6.5 x10^3uL (1.8-7.7) Lymphocytes # (Auto) 1.2 x10^3/uL (1.0-4.8) Monocytes # (Auto) 0.6 x10^3/uL (0.0-1.1) Eosinophils # (Auto) 0.1 x10^3/uL (0.0-0.7) Basophils # (Auto) 0.0 x10^3/uL (0.0-0.2) Platelet Estimate Adequate (ADEQUATE) Hypochromasia Mod Microcytosis Mod Sodium Level 135 mmol/L (136-145) Chloride Level 99 mmol/L (98-107) Carbon Dioxide Level 28 mmol/L (21-32) Anion Gap 8 (6-14) Blood Urea Nitrogen 36 mg/dL (7-20) Creatinine 1.6 mg/dL (0.6-1.0) Estimated GFR (Cockcroft-Gault) 37.6 Glucose Level 103 mg/dL (70-99) Calcium Level 8.2 mg/dL (8.5-10.1) Microbiology 11/24/16 Urine Culture - Final, Complete 11/24/16 Urine Culture Result 1 (MARION) - Final, Complete 11/24/16 Antimicrobic Susceptibility - Final, Complete Medications Current Medications Ondansetron HCl (Zofran) 4 mg PRN Q6HRS PRN IV NAUSEA/VOMITING 1ST CHOICE; Start 11/24/16 at 13:30 Prochlorperazine Edisylate (Compazine) 10 mg PRN Q6HRS PRN IV NAUSEA/VOMITING, 2ND CHOICE; Start 11/24/16 at 13:30 Prochlorperazine (Compazine) 25 mg PRN Q12HR PRN IA NAUSEA/VOMITING; Start 12/31 at 13:30 Morphine Sulfate 1 mg PRN Q2HR PRN IV PAIN; Start 11/24/16 at 13:30 Acetaminophen/ Hydrocodone Bitart (Lortab 5/325) 1 tab PRN Q4HRS PRN PO MILD PAIN, 2ND CHOICE Last administered on 12/03/16 20:26; Start 11/24/16 at 13:30 Acetaminophen (Tylenol) 650 mg PRN Q6HRS PRN PO Headaches, Temp > 101.5F; Start 11/24/16 at 13:30 Ibuprofen (Motrin) 400 mg PRN Q6HRS PRN PO MILD PAIN; Start 11/24/16 at 13:30; Status Cancel Docusate Sodium (Colace) 100 mg BID PO Last administered on 12/04/16 07:45; Start 11/24/16 at 14:00 Magnesium Hydroxide (Milk Of Magnesia) 2,400 mg PRN Q12HR PRN PO CONSTIPATION; Start 11/24/16 at 13:30 Lactulose 20 gm PRN Q12HR PRN PO CONSTIPATION Last administered on 12/03/16 08 :46; Start 11/24/16 at 13:30 Bisacodyl (Dulcolax Supp) 10 mg PRN DAILY PRN IA CONSTIPATION; Start 11/24/16 at 13:30 Enoxaparin Sodium (Lovenox 40mg Syringe) 40 mg DAILY16 SQ Last administered on 11/25/16 15:06; Start 11/24/16 at 16:00; Stop 11/26/16 at 13:47; Status DC Ceftriaxone Sodium 1 gm/ Sodium Chloride 50 ml @ 100 mls/hr Q24H IV Last administered on 11/30/16 14:18; Start 11/24/16 at 14:00; Stop 12/01/16 at 15:07 ; Status DC Metronidazole (Flagyl) 500 mg Q8HRS PO Last administered on 11/24/16 15:26; Start 11/24/16 at 14:00; Stop 11/27/16 at 11:18; Status DC Allopurinol (Zyloprim) 100 mg DAILY PO Last administered on 12/04/16 07:44; Start 11/24/16 at 14:00 Amlodipine Besylate (Norvasc) 10 mg DAILY PO Last administered on 12/04/16 07: 45; Start 11/24/16 at 14:00 Furosemide (Lasix) 60 mg DAILY PO Last administered on 11/24/16 15:26; Start 11/24/16 at 14:00; Stop 11/25/16 at 21:04; Status DC Labetalol HCl (Trandate) 200 mg BID PO Last administered on 12/04/16 07:44; Start 11/24/16 at 14:00 Levothyroxine Sodium (Synthroid) 75 mcg DAILY07 PO Last administered on 15:25; Start 11/24/16 at 14:00; Stop 11/27/16 at 11:18; Status DC Mirtazapine (Remeron) 7.5 mg QHS PO Last administered on 12/03/16 20:25; Start 11/24/16 at 21:00 Atorvastatin Calcium (Lipitor) 10 mg QHS PO Last administered on 12/03/16 20: 25; Start 11/24/16 at 21:00 Labetalol HCl (Normodyne) 10 mg PRN Q2HR PRN IVP HYPERTENSION, SEE COMMENTS Last administered on 11/26/16 23:27; Start 11/24/16 at 13:45 Aspirin (Comfort Aspirin) 325 mg [id number] PO Last administered on 12/04/16 07: 44; Start 11/24/16 at 13:45 Sodium Chloride 1,000 ml @ 75 mls/hr [id number] IV Last administered on 03:00; Start 11/25/16 at 11:00; Stop 11/28/16 at 09:37; Status DC Regadenoson (Lexiscan) 0.4 mg 1X ONCE IV Last administered on 11/26/16 10:38 ; Start 11/26/16 at 08:30; Stop 11/26/16 at 08:31; Status DC Hydralazine HCl (Apresoline) 10 mg PRN Q4HRS PRN IVP ELEVATED BP, SEE COMMENTS Last administered on 12/02/16 14:11; Start 11/26/16 at 08:45 Enoxaparin Sodium (Lovenox 30mg Syringe) 30 mg DAILY16 SQ Last administered on 11/30/16 14:18; Start 11/26/16 at 16:00; Stop 12/01/16 at 09:44; Status DC Ondansetron HCl (Zofran) 4 mg PRN Q6HRS PRN IV NAUSEA/VOMITING; Start 11/27/16 at 08:00; Stop 11/27/16 at 18:00; Status DC Fentanyl Citrate (Fentanyl 2ml Vial) 25 mcg PRN Q5MIN PRN IV MILD PAIN; Start 11/27/16 at 08:00; Stop 11/27/16 at 18:00; Status DC Fentanyl Citrate (Fentanyl 2ml Vial) 50 mcg PRN Q5MIN PRN IV MODERATE PAIN; Start 11/27/16 at 08:00; Stop 11/27/16 at 18:00; Status DC Morphine Sulfate 1 mg PRN Q10MIN PRN IV SEVERE PAIN; Start 11/27/16 at 08:00; Stop 11/27/16 at 18:00; Status DC Ringer's Solution 1,000 ml @ 30 mls/hr Q24H IV Last administered on 11/27/16 09:11; Start 11/27/16 at 07:52; Stop 11/27/16 at 19:51; Status DC Lidocaine HCl 2 ml PRN 1X PRN ID PRIOR TO IV START; Start 11/27/16 at 08:00; Stop 11/27/16 at 18:00; Status DC Hydromorphone HCl (Dilaudid) 0.5 mg PRN Q10MIN PRN IV SEV PAIN, Second choice; Start 11/27/16 at 08:00; Stop 11/27/16 at 18:00; Status DC Prochlorperazine Edisylate (Compazine) 5 mg PACU PRN PRN IV NAUSEA, MRX1; Start 11/27/16 at 08:00; Stop 11/27/16 at 18:00; Status DC Levothyroxine Sodium 37.5 mcg/ Sodium Chloride 5 ml @ 100 mls/hr DAILY IVP Last administered on 11/28/16 09:07; Start 11/27/16 at 12:00; Stop 11/28/16 at 11:58; Status DC Clonidine HCl (Catapres Tts-1) 1 patch WEEKLY TD Last administered on 10:09; Start 11/28/16 at 09:45 Enalaprilat (Vasotec) 1.25 mg Q6HRS IV ; Start 11/28/16 at 09:45; Stop 11/28/16 at 11:58; Status DC Levothyroxine Sodium (Synthroid) 75 mcg DAILY07 PO Last administered on 07:44; Start 11/29/16 at 07:00 Barium Sulfate (Varibar Thin Liquid Apple) 148 gm 1X ONCE PO Last administered on 11/28/16 13:09; Start 11/28/16 at 12:15; Stop 11/28/16 at 12:16 ; Status DC Scopolamine (Transderm-Scop) 1 patch Q72H TD Last administered on 12/01/16 21: 49; Start 11/28/16 at 20:15 Metoprolol Tartrate (Lopressor) 5 mg Q6HRS IVP ; Start 12/01/16 at 16:00; Stop 12/01/16 at 17:50; Status DC Sodium Chloride (Normal Saline Flush) 3 ml QSHIFT PRN IV AFTER MEDS AND BLOOD DRAWS; Start 12/01/16 at 16:00 Cefazolin Sodium 1 gm/Sodium Chloride 50 ml @ 100 mls/hr 1X ONCE IV Last administered on 12/02/16 12:31; Start 12/02/16 at 12:00; Stop 12/02/16 at 12:29 ; Status DC Metoprolol Tartrate (Lopressor) 5 mg Q6HRS PRN IVP HYPERTENSION, SEE COMMENTS; Start 12/01/16 at 17:45 Propofol 20 ml @ As Directed STK-MED ONCE IV ; Start 12/02/16 at 12:43; Stop at 12:44; Status DC Lidocaine HCl (Lidocaine Pf 2% Vial) 5 ml STK-MED ONCE .ROUTE ; Start 12/02/16 at 12:43; Stop 12/02/16 at 12:44; Status DC Ringer's Solution 1,000 ml @ 30 mls/hr Q24H IV Last administered on 12/02/16 12:30; Start 12/02/16 at 12:30; Stop 12/03/16 at 15:54; Status DC Sodium Polystyrene Sulfonate (Kayexalate) 15 gm 1X ONCE PO Last administered on 12/03/16 08:46; Start 12/03/16 at 08:30; Stop 12/03/16 at 08:31; Status DC Albuterol Sulfate (Ventolin Neb Soln) 2.5 mg 1X ONCE NEB Last administered on 12/03/16t 08:23; Start 12/03/16 at 08:30; Stop 12/03/16 at 08:31; Status DC Active Scripts Active Flagyl (Metronidazole) 500 Mg Tablet 500 Mg PO Q8HRS Reported Lasix (Furosemide) 20 Mg Tablet 3 Tab PO DAILY Simvastatin 20 Mg Tablet 1 Tab PO QHS Mirtazapine 7.5 Mg Tablet 7.5 Mg PO DAILY Allopurinol 100 Mg Tablet 1 Tab PO DAILY Levothyroxine Sodium 75 Mcg Tablet 1 Tab PO DAILY Labetalol Hcl 200 Mg Tablet 200 Mg PO BID Norvasc (Amlodipine Besylate) 10 Mg Tablet 10 Mg PO DAILY Vitals/I & O Vital Sign - Last 24 Hours 12/03/16 12/03/16 12/03/16 12/03/16 14:41 19:10 20:00 20:26 Temp 98.4 98.2 98.4 98.2 Pulse 79 77 Resp 20 18 B/P (MAP) 156/72 (100) 141/64 (89) Pulse Ox 96 95 95 O2 Delivery Room Air Room Air Room Air Room Air 12/03/16 12/03/16 12/04/16 12/04/16 20:27 22:45 02:50 07:00 Temp 98.6 98.8 99.0 98.6 98.8 99.0 Pulse 77 76 81 86 Resp 18 18 19 B/P (MAP) 141/64 129/61 (83) 124/58 (80) 122/62 (82) Pulse Ox 95 93 92 O2 Delivery Room Air Room Air Room Air 12/04/16 12/04/16 12/04/16 12/04/16 07:44 07:45 08:00 11:00 Temp 98.7 98.7 Pulse 85 77 73 Resp 18 B/P (MAP) 122/62 122/62 109/53 (71) Pulse Ox 95 O2 Delivery Room Air Room Air O2 Flow Rate 3.0 BRADLY TILLEY III DO Dec 04, 2016 11:38
== END 2016-12-04 14:00 | DRG 64 ==
LOC: ER 10:17 → 2 SOUTH 12:34
PROVIDERS: ADMIT Internal Medicine; ATTEND Internal Medicine
PROC: B24BZZ4 Ultrasonography of Heart with Aorta, Transesophageal (ICD-10-PCS; 2016-11-27)
PROC: 0DH63UZ Insertion of Feeding Device into Stomach, Percutaneous Approach (ICD-10-PCS; 2016-12-02)
PROC: 0DJ08ZZ Inspection of Upper Intestinal Tract, Via Natural or Artificial Opening Endoscopic (ICD-10-PCS; principal; 2016-12-02 14:00)
DX: I63.9 Cerebral infarction, unspecified (principal); G93.41 Metabolic encephalopathy; N17.9 Acute kidney failure, unspecified; R13.19 Other dysphagia; G81.94 Hemiplegia, unspecified affecting left nondominant side; I13.0 Hypertensive heart and chronic kidney disease with heart failure and stage 1 through stage 4 chronic kidney disease, or unspecified chronic kidney disease; N39.0 Urinary tract infection, site not specified; I50.9 Heart failure, unspecified; E87.5 Hyperkalemia; A59.9 Trichomoniasis, unspecified; E86.0 Dehydration; D50.9 Iron deficiency anemia, unspecified; E03.9 Hypothyroidism, unspecified; E66.9 Obesity, unspecified; Z68.31 Body mass index [BMI] 31.0-31.9, adult; E78.5 Hyperlipidemia, unspecified; I65.29 Occlusion and stenosis of unspecified carotid artery; K21.9 Gastro-esophageal reflux disease without esophagitis; M10.9 Gout, unspecified; N18.3 Chronic kidney disease, stage 3 (moderate); Z82.3 Family history of stroke; Z87.891 Personal history of nicotine dependence; Z90.710 Acquired absence of both cervix and uterus; M19.90 Unspecified osteoarthritis, unspecified site; J44.9 Chronic obstructive pulmonary disease, unspecified
CPT/HCPCS: 36415; 70450; 70551; 71010; 71250; 73120; 74000; 74230; 78452; 80048; 80053; 80061; 81001; 82553; 83540; 83550; 83880; 84132; 84484; 84550; 85025; 85610; 85651; 87086; 87186; 93005; 93017; 93306; 93312; 93325; 93880; 94640; 96374; 96375; 96376; A9500; J0360; J0690; J0696; J1650; J2704; J2785; J3490; J7030; J7120; J7613; 92526; 92610; 92611; 97110; 97116; 97530; 97535; 99285-25; J2001

== ENCOUNTER → 2017-08-04 | Day surgery (SDC) | payer MEDICARE ==
[~2017-08-04] MED LIST changes: -ALLO100T PO; -AMLO10TA4 PO; -DRON2.5C PO; -FURO-69 PO; +IV RINGERS,LACTATED 1000ML 1,000 ML IV; -LABE200T2 PO; +LABETALOL 20 MG/4 ML DISP.SYRIN.; -LEVO500T59 PO; -LEVO75TA5 PO; +LIDOCAINE 2% PF Vial for OR 5 ML VIAL.; -METR500T PO; -MIRT7.5T8 PO; +PROPOFOL 20 ML IV; -SIMV10TA3 PO; -SIMV20TA3 PO
== END | disposition home or self-care (01) ==
LOC: ENDOS 11:52
DX: Z46.59 Encounter for fitting and adjustment of other gastrointestinal appliance and device (principal); K21.0 Gastro-esophageal reflux disease with esophagitis; E78.5 Hyperlipidemia, unspecified; I13.0 Hypertensive heart and chronic kidney disease with heart failure and stage 1 through stage 4 chronic kidney disease, or unspecified chronic kidney disease; N18.9 Chronic kidney disease, unspecified; I50.9 Heart failure, unspecified; M19.90 Unspecified osteoarthritis, unspecified site; M10.9 Gout, unspecified; E03.9 Hypothyroidism, unspecified; Z86.73 Personal history of transient ischemic attack (TIA), and cerebral infarction without residual deficits; Z87.440 Personal history of urinary (tract) infections; Z90.710 Acquired absence of both cervix and uterus; Z82.3 Family history of stroke; Z79.899 Other long term (current) drug therapy
CPT/HCPCS: 43247; J2704; J3490

== ENCOUNTER 2017-12-20 22:22 | Emergency (ER) | payer MEDICARE ==
[~2017-12-20] VITALS: Ht 152.4 cm; Wt 68.0 kg
[~2017-12-20 22:22] MED LIST changes: +ALLO100T PO; +AMLO10TA4 PO; +DRON2.5C PO; +FURO-69 PO; -IV RINGERS,LACTATED 1000ML 1,000 ML IV; +LABE200T4 PO; -LABETALOL 20 MG/4 ML DISP.SYRIN.; +LEVO500T59 PO; +LEVO75TA5 PO; -LIDOCAINE 2% PF Vial for OR 5 ML VIAL.; +METR500T PO; +MIRT7.5T8 PO; -PROPOFOL 20 ML IV; +SIMV10TA3 PO; +SIMV20TA3 PO
[2017-12-20 23:31] LABS: BASO # 0.1 x10^3/uL (0.0-0.2); BASO % 2 % (0-3); EOS # 0.3 x10^3/uL (0.0-0.7); EOS % 3 % (0-3); HEMATOCRIT 33.1 % (36.0-47.0); HEMOGLOBIN 10.9 g/dL (12.0-15.5); LYMPH # 2.5 x10^3/uL (1.0-4.8); LYMPH % 32 % (24-48); MEAN CORPUSCULAR HEMOGLOBIN 24 pg (25-35); MEAN CORPUSCULAR HGB CONC 33 g/dL (31-37); MEAN CORPUSCULAR VOLUME 72 fL (79-100); MONO # 0.5 x10^3/uL (0.0-1.1); MONO % 6 % (0-9); NEUT # 4.5 x10^3uL (1.8-7.7); NEUT % 57 % (31-73); PLATELET COUNT 281 x10^3/uL (140-400); RED BLOOD COUNT 4.62 x10^6/uL (3.50-5.40); RED CELL DISTRIBUTION WIDTH 15.8 % (11.5-14.5); WHITE BLOOD COUNT 7.9 x10^3/uL (4.0-11.0)
[2017-12-21 00:22] LABS: CALCIUM 9.4 mg/dL (8.5-10.1); CREATININE 1.6 mg/dL (0.6-1.0); GFR 37.5; POTASSIUM 4.5 mmol/L (3.5-5.1)
[2017-12-21 00:27] LABS: ALBUMIN 3.6 g/dL (3.4-5.0); ALBUMIN/GLOBULIN RATIO 0.8 (1.0-1.7); TOTAL BILIRUBIN 0.2 mg/dL (0.2-1.0); TOTAL PROTEIN 7.9 g/dL (6.4-8.2)
--- NOTE | 2017-12-21 01:10 | PHYS DOC ---
Past Medical History Past Medical History: CVA, Hypertension, Stroke Additional Past Medical Histor: LEFT SIDED PARTIAL DEFICIT Past Surgical History: Hysterectomy Alcohol Use: None Drug Use: None Adult General Chief Complaint Chief Complaint: LOWER EXTREMITY EDEMA HPI HPI Patient is a 82 year old -[place] female with history of hypertension, CVA with residual left-sided deficits who presents with peripheral edema which is been ongoing for a month. Patient's family member states patient has not been taking her blood pressure medications and that she has been sleeping in a wheelchair due to difficulty getting in and out of bed. Patient noticed steady fluid again extending from her feet to her still thighs. She reports mild dyspnea but denies chest pain, shortness of breath. She denies change in urine output. Patient is been evaluated by his primary care physician who has ordered some compression device. She denies acute symptoms or complaints. [] Review of Systems Review of Systems Review symptoms as per history of present illness. All other review symptoms are negative. All other systems were reviewed and found to be within normal limits, except as documented in this note. Current Medications Current Medications Current Medications Medications (Trade) Dose Ordered Sig/Georgina Start Time Stop Time Status Last Admin Dose Admin Furosemide (Lasix) 40 mg 1X ONCE 12/21/17 01:15 12/21/17 01:16 DC 12/21/17 01:26 40 MG Labetalol HCl (Normodyne Iv Push) 20 mg 1X ONCE 12/21/17 01:15 12/21/17 01:16 DC 12/21/17 01:25 20 MG Allergies Allergies Allergies Coded Allergies Type Severity Reaction Last Updated Verified No Known Drug Allergies 08/04/17 No Physical Exam Physical Exam Constitutional: Well developed, well nourished, no acute distress, non-toxic appearance. [] HENT: Normocephalic, atraumatic, bilateral external ears normal, oropharynx moist, no oral exudates, nose normal. [] Eyes: PERRLA, EOMI, conjunctiva normal, no discharge. [] Neck: Normal range of motion, no tenderness, supple, no stridor. [] Cardiovascular:Heart rate regular rhythm, no murmur [] Lungs & Thorax: Bilateral breath sounds clear to auscultation [] Abdomen: Bowel sounds normal, soft, no tenderness. [] Skin: Warm, dry, no erythema, no rash. [] Back: No tenderness. [] Extremities: Plus peripheral edema extending from toes to proximal thighs bilaterally, negative Homans signs. No appreciated cellulitis or unilateral leg swelling.. [] Neurologic: Alert and oriented X 3, normal motor function, normal sensory function, no focal deficits noted. [] Psychologic: Affect normal, judgement normal, mood normal. [] Current Patient Data Vital Signs Vital Signs Date Time Temp Pulse Resp B/P (MAP) Pulse Ox O2 Delivery O2 Flow Rate FiO2 12/21/17 01:25 95 166/101 12/20/17 22:38 97.8 22 94 Room Air 97.8 Lab Values Laboratory Tests Test 12/20/17 23:21 12/20/17 23:50 12/21/17 01:00 White Blood Count 7.9 x10^3/uL (4.0-11.0) Red Blood Count 4.62 x10^6/uL (3.50-5.40) Hemoglobin 10.9 g/dL (12.0-15.5) L Hematocrit 33.1 % (36.0-47.0) L Mean Corpuscular Volume 72 fL (79-100) L Mean Corpuscular Hemoglobin 24 pg (25-35) L Mean Corpuscular Hemoglobin Concent 33 g/dL (31-37) Red Cell Distribution Width 15.8 % (11.5-14.5) H Platelet Count 281 x10^3/uL (140-400) Neutrophils (%) (Auto) 57 % (31-73) Lymphocytes (%) (Auto) 32 % (24-48) Monocytes (%) (Auto) 6 % (0-9) Eosinophils (%) (Auto) 3 % (0-3) Basophils (%) (Auto) 2 % (0-3) Neutrophils # (Auto) 4.5 x10^3uL (1.8-7.7) Lymphocytes # (Auto) 2.5 x10^3/uL (1.0-4.8) Monocytes # (Auto) 0.5 x10^3/uL (0.0-1.1) Eosinophils # (Auto) 0.3 x10^3/uL (0.0-0.7) Basophils # (Auto) 0.1 x10^3/uL (0.0-0.2) Platelet Estimate Adequate (ADEQUATE) Anisocytosis Slight Microcytosis Slight Sodium Level 141 mmol/L (136-145) Potassium Level 4.5 mmol/L (3.5-5.1) Chloride Level 107 mmol/L (98-107) Carbon Dioxide Level 23 mmol/L (21-32) Anion Gap 11 (6-14) Blood Urea Nitrogen 31 mg/dL (7-20) H Creatinine 1.6 mg/dL (0.6-1.0) H Estimated GFR (Cockcroft-Gault) 37.5 BUN/Creatinine Ratio 19 (6-20) Glucose Level 104 mg/dL (70-99) H Calcium Level 9.4 mg/dL (8.5-10.1) Total Bilirubin 0.2 mg/dL (0.2-1.0) Aspartate Amino Transferase (AST) 8 U/L (15-37) L Alanine Aminotransferase (ALT) 11 U/L (14-59) L Alkaline Phosphatase 111 U/L (46-116) ZN-[id number]-Type Natriuretic Peptide 388 pg/mL (0-449) Total Protein 7.9 g/dL (6.4-8.2) Albumin 3.6 g/dL (3.4-5.0) Albumin/Globulin Ratio 0.8 (1.0-1.7) L Urine Collection Type U cath Urine Color Yellow Urine Clarity Clear Urine pH 7.0 Urine Specific [place] 1.015 Urine Protein 100 mg/dL (NEG-TRACE) Urine Glucose (UA) Negative mg/dL (NEG) Urine Ketones (Stick) Negative mg/dL (NEG) Urine Blood Negative (NEG) Urine Nitrite Negative (NEG) Urine Bilirubin Negative (NEG) Urine Urobilinogen Dipstick 0.2 mg/dL (0.2 mg/dL) Urine Leukocyte Esterase Trace (NEG) Urine RBC 3-5 /HPF (0-2) Urine WBC 1-4 /HPF (0-4) Urine Squamous Epithelial Cells Few /LPF Urine Bacteria Many /HPF (0-FEW) Laboratory Tests 12/20/17 23:21 Laboratory Tests 12/20/17 23:50 EKG EKG [] Radiology/Procedures Radiology/Procedures [Chest x-ray: Reviewed] Course & Med Decision Making Course & Med Decision Making Pertinent Labs and Imaging studies reviewed. (See chart for details) [Foot edema secondary to medication noncompliance. Patient also noted to be hypertensive. No chest pain findings of acute pulmonary edema on chest x-ray per radiology report. Patient given 1 dose of labetalol and IV Lasix with instructions to resume medications starting tomorrow with close follow-up with PCP recommended. Return precautions reviewed.] Dragon Disclaimer Dragon Disclaimer This electronic medical record was generated, in whole or in part, using a voice recognition dictation system. Departure Departure Impression: Primary Impression: Chronic renal insufficiency Additional Impression: Peripheral edema Disposition: HOME, SELF-CARE Condition: GOOD Referrals: RENNY HOYT DO (PCP) Scripts Furosemide (LASIX) 40 Mg Tablet 1 TAB PO DAILY, #3 TAB 1 Refill Prov: LYRIC JEAN DO 12/21/17 Problem Qualifiers LYRIC JEAN DO Dec 21, 2017 01:10
[2017-12-21 01:12] LABS: BILIRUBIN,URINE NEGATIVE (NEG); CLARITY,URINE CLEAR; COLOR,URINE YELLOW; NITRITE,URINE NEGATIVE (NEG); PROTEIN,URINE 100 mg/dL (NEG-TRACE); UROBILINOGEN,URINE 0.2 mg/dL (0.2 mg/dL)
[2017-12-21] MEDS ORDERED: LABETALOL 20 MG/4 ML DISP.SYRIN. IVP ONE (01:15)
[2017-12-21] MEDS ORDERED: FUROSEMIDE 40 MG/4 ML VIAL. IVP ONE (01:15)
[2017-12-21] MEDS ORDERED: FURO-68 PO (01:18)
[2017-12-21 01:23] LABS: BACTERIA,URINE MANY /HPF (0-FEW); SQUAMOUS EPITHELIAL CELL,UR FEW /LPF
[2017-12-21 01:40] VITALS: BP 178/89
[2017-12-21 02:02] LABS: ANISOCYTOSIS SLIGHT; MICROCYTOSIS SLIGHT; PLT ESTIMATE ADEQUATE (ADEQUATE)
--- NOTE | 2017-12-21 02:46 | RAD ---
Chest AP portable at 1125: Reason for examination: Short of breath with dizziness. Comparison is made to previous study dated 11/24/2016. The heart size is enlarged. Mediastinum is unremarkable. There is no evidence of congestion or infiltrates. There is some blunting at the left costophrenic angle which is chronic. Small calcified granuloma is again seen at the right lung base. No acute bony abnormalities are seen. IMPRESSION: Blunted left costophrenic angle which is chronic. Cardiomegaly. No acute congestion or infiltrates. Electronically signed by: Martha Moore MD (12/21/2017 2:43 AM) [facility] [id number]
== END 2017-12-21 01:42 | disposition home or self-care (01) ==
LOC: ER 22:22
DX: R60.0 Localized edema (principal); I12.9 Hypertensive chronic kidney disease with stage 1 through stage 4 chronic kidney disease, or unspecified chronic kidney disease; N18.9 Chronic kidney disease, unspecified; Z86.73 Personal history of transient ischemic attack (TIA), and cerebral infarction without residual deficits; Z90.710 Acquired absence of both cervix and uterus
CPT/HCPCS: 36415; 51701; 71045; 80053; 81001; 83880; 85025; 96374; 96375; 99285; J1940; J3490